=== PATIENT | female | born 1940 | race Caucasian/White ===

== ENCOUNTER 2016-09-16 05:08 | Inpatient (IN) | payer BC, OTHER ==
[2016-08-09 13:56] VITALS: BMI 37.0
--- NOTE | 2016-08-09 14:27 | PAT Medication Instructions ---
Service Date Aug 09, 2016. Current Home Medication List Calcium Carbonate (Tums), 1 TAB PO PRN Cyclosporine (Ophth) (Restasis), 1 DROP OP QAM Ibuprofen Tab (Advil), 400 MG PO PRN Lisinopril (Zestril), 20 MG PO QAM Misc Natural Products (Osteo Bi-Flex Advanced Do), 1 TAB PO QAM Multivitamin (Multivitamin), 1 TAB PO QAM Medication Instructions For Your Scheduled Surgery - Hold the following medications 2 weeks prior to surgery: Misc Natural Products (Osteo Bi-Flex Advanced Do), 1 TAB PO QAM - Hold the following medications the morning of surgery: Calcium Carbonate (Tums), 1 TAB PO PRN Lisinopril (Zestril), 20 MG PO QAM Multivitamin (Multivitamin), 1 TAB PO QAM Ibuprofen Tab (Advil), 400 MG PO PRN (otherwise okay to continue per surgeon) - Take the following medications the morning of surgery: Cyclosporine (Ophth) (Restasis), 1 DROP OP QAM *NOTHING TO EAT OR DRINK AFTER MIDNIGHT* If you have any questions please call us at [phone] (Irina Landaverde PA-C) or [phone] or [phone]
[2016-08-09 15:12] LABS: BASO % 0.3 %; BASO ABS # 0.02 K/uL (0-0.2); COMPLETE YES; EOS % 2.5 %; IG% 0.2 %; LYMPH % 39.8 %; LYMPH ABS # 2.57 K/uL (1.2-3.4); MEAN CELL VOLUME 89.2 fL (80-100); MEAN CORPUSCULAR HEMOGLOBIN 30.3 pg (25-34); NEUT % 48.2 %; PLATELET COUNT 284 K/uL (130-400); RED BLOOD COUNT 4.82 M/uL (4.2-5.4); WHITE BLOOD COUNT 6.46 K/uL (4.8-10.8)
[2016-08-09 15:18] LABS: URINE APPEARANCE CLEAR (CLEAR); URINE BILIRUBIN NEG (NEG); URINE COLOR YELLOW; URINE NITRITE NEG (NEG); URINE SPECIFIC GRAVITY 1.007 (1.000-1.030); UROBILINOGEN NEG (NEG)
[2016-08-09 15:19] LABS: MANUAL MICROSCOPIC REQUIRED? NO; REVIEW REQ? NO
[2016-08-09 15:21] LABS: PARTIAL THROMBOPLASTIN RATIO 1.1; PROTHROMBIN TIME (PATIENT) 10.8 SECONDS (9.0-12.0)
--- NOTE | 2016-08-09 15:52 | DIAGNOSTIC IMAGING REPORT ---
TWO VIEW CHEST CLINICAL HISTORY: Preoperative examination. FINDINGS: PA and lateral chest radiographs are obtained. No prior studies are available for comparison at the time of dictation. The cardiomediastinal silhouette is unremarkable. There is atherosclerotic calcification of the thoracic aorta. Chronic interstitial thickening is unchanged. The lungs and pleural spaces are clear. There is no pneumothorax. The skeletal structures are osteopenic. A right shoulder arthroplasty is in place. Advanced arthritic change is seen in the left shoulder. Spondylosis is noted in the thoracic spine. IMPRESSION: No active disease in the chest. Electronically signed by: Joss Canchola M.D. 08/09/2016 3:51 PM
[2016-08-09 17:16] LABS: BUN/CREATININE RATIO 20.4 (10-20); CREATININE 0.59 mg/dl (0.60-1.20); POTASSIUM 3.8 mmol/L (3.5-5.1)
--- NOTE | 2016-09-15 19:32 | HISTORY & PHYSICAL EXAMINATION ---
DATE OF ADMISSION: 09/16/2016 CHIEF COMPLAINT: Primary osteoarthritis of the left shoulder. HISTORY OF PRESENT ILLNESS: Annemarie is a very pleasant 76-year-old female, who had a right total shoulder arthroplasty done in 2006. She has done well with that. Unfortunately, she is having a lot of pain in her left shoulder. Radiographs and clinical examination were diagnostic for primary osteoarthritis of the left shoulder. After failing conservative treatments, she elected to proceed with a total shoulder arthroplasty. PAST MEDICAL HISTORY: Significant for hypertension. MEDICATION: Include lisinopril 20 mg daily. PAST SURGICAL HISTORY: Significant for a right total shoulder arthroplasty. ALLERGIES: PENICILLIN. FAMILY HISTORY: Noncontributory. SOCIAL HISTORY: The patient is . She lives alone. She rarely drinks. She denies any tobacco or IV drug use. REVIEW OF SYSTEMS: She complains of left shoulder pain. All other pertinent review of systems are negative. PHYSICAL EXAMINATION: GENERAL: She is awake, alert and oriented x3. She is in no apparent distress. She is very pleasant. HEENT: Pupils are equal, round and reactive to light. Extraocular motions are intact. Oral mucosa is pink and moist. HEART: Regular rate per radial pulse. LUNGS: Ekaterina symmetrically bilaterally with no audible breath sounds. ABDOMEN: Soft, nontender and nondistended. MUSCULOSKELETAL: On physical examination of the left shoulder, she has active motion of about 100 degrees of forward flexion and 80 degrees of abduction. She has 4+/5 muscle strength with full can testing, 5/5 muscle strength with external rotation. Negative bear hug and belly press test. Has significant pain over the anterior glenohumeral joint line and crepitus with range of motion. IMAGING DATA: X-rays of the left shoulder do show advanced osteoarthritis with mostly concentric glenoid wear. IMPRESSION: Advanced osteoarthritis of the left shoulder. PLAN: We will proceed with a Biomet comprehensive left total shoulder arthroplasty. Postoperatively, she will be placed in an arm sling and kept overnight for postoperative medical management.
[2016-09-16] VITALS (8 sets, daily range): BP systolic 93–163; BP diastolic 60–105; PULSE 64–86; TEMP 36.3–36.6; O2SAT 94–98; Ht 157.5 cm; Wt 92.0 kg
[~2016-09-16] VITALS: Ht 157.5 cm; Wt 92.0 kg
[~2016-09-16 05:08] MED LIST: CALC500C3 PO; CYCL0.052 OP; IBUP-103 PO; LISI-725 PO; MISCTAB78 PO; MULT-506 PO
[2016-09-16] MEDS ORDERED: LACTATED RINGER'S 1000ML 1,000 ML IV SCH (06:00)
[2016-09-16] MEDS ORDERED: ROPIVACAINE 5MG/ML 30 ML 150 MG, BUPIVACAINE/EPINEPHR 0.5% MPF 30 ML, KETOROLAC TROMETH... INFIL SCH ×7 (06:00)
[2016-09-16] MEDS ORDERED: FAMOTIDINE 20 MG TAB PO SCH (06:00)
[2016-09-16] MEDS ORDERED: GABAPENTIN 300 MG CAP PO SCH (06:00)
[2016-09-16] MEDS ORDERED: VANCOMYCIN INJ 1,400 MG in SODIUM CHLORIDE 0.9% 500ML 500 ML IV SCH ×2 (06:00→18:00)
[2016-09-16] MEDS ORDERED: LACTATED RINGER'S 1000ML IV SCH (06:00)
[2016-09-16] MEDS ORDERED: ACETAMINOPHEN 500 MG TAB PO SCH (06:00)
[2016-09-16] MEDS ORDERED: NEOSTIGMINE METHYLSULFATE 5 MG/5 ML SYR ONE (06:08)
[2016-09-16] MEDS ORDERED: MIDAZOLAM HCL 1 MG/ML 2ML VIAL ONE (06:08)
[2016-09-16] MEDS ORDERED: PHENYLEPHRINE HCL INJ 10 MG/ML VIAL ONE (06:08)
[2016-09-16] MEDS ORDERED: GLYCOPYRROLATE INJ 0.2 MG/ML VIAL ONE (06:08)
[2016-09-16] MEDS ORDERED: EpHEDrine SULFATE INJ 50 MG/ML AMP ONE (06:08)
[2016-09-16] MEDS ORDERED: ONDANSETRON INJ 2 MG/ML 2 ML VIAL ONE (06:08)
[2016-09-16] MEDS ORDERED: DEXAMETHASONE SOD INJ 4 MG/ML VIAL ONE (06:08)
[2016-09-16] MEDS ORDERED: LIDOCAINE HCL 2% 2 ML VIAL (20MG/ML) ONE (06:08)
[2016-09-16] MEDS ORDERED: PROPOFOL IV EMULSION 10 MG/ML 20 ML VIAL IV ONE ×3 (06:08→07:46)
[2016-09-16] MEDS ORDERED: SUCCINYLCHOLINE CHLORIDE 20 MG/ML 10 ML VIAL IV ONE (06:08)
[2016-09-16] MEDS ORDERED: FENTANYL CITRATE INJ 50 MCG/1 ML 2 ML VIAL ONE ×2 (06:09→07:21)
--- NOTE | 2016-09-16 06:24 | History & Physical Bridge Note ---
H&P Re-Evaluation Bridge Note: I have examined the patient, reviewed the History & Physical and in the interval since the performance of the History & Physical I have noted the following changes of clinical significance: No changes noted
[2016-09-16] MEDS ORDERED: BUPIVACAINE/EPINEPHRINE 0.25% 1:200,000 30 ML VIAL ONE (06:27)
[2016-09-16] MEDS ORDERED: ROPIVACAINE 0.5% 5 MG/ML 30 ML VIAL ONE (06:27)
[2016-09-16] MEDS: TRANEXAMIC ACID INJ 1,000 MG in SODIUM CHLORIDE 0.9% 100ML 100 ML IV SCH ×2 (06:30→06:35)
[2016-09-16] MEDS ORDERED: ORTHO JOINT ANESTHETIC ONE (06:35)
[2016-09-16] MEDS ORDERED: HYDROmorphone INJ 1 MG/ML SYR IV PRN ×2 (07:30→09:30)
[2016-09-16] MEDS ORDERED: ONDANSETRON INJ 2 MG/ML 2 ML VIAL IV PRN ×3 (07:30→09:30)
[2016-09-16] MEDS ORDERED: EpHEDrine SULFATE INJ 50 MG/ML AMP IV PRN ×2 (07:30→09:30)
[2016-09-16] MEDS ORDERED: ATROPINE SULFATE 0.1 MG/ML 5ML SYR IV PRN ×2 (07:30→09:30)
[2016-09-16] MEDS ORDERED: FENTANYL CITRATE INJ 50 MCG/1 ML 2 ML VIAL IV PRN ×2 (07:30→09:30)
[2016-09-16] MEDS ORDERED: BACITRACIN 50000 UNIT VIAL IR ONE (08:46)
--- NOTE | 2016-09-16 08:58 | [facility] Post Operative Brief Note ---
Immediate Operative Summary Operative Date Sep 16, 2016. Pre-Operative Diagnosis Advanced osteoarthritis of Left Shoulder Post-Operative Diagnosis Same as preoperative Procedure(s) Performed Left Total Shoulder Arthroplasty, Cemented Surgeon Dr. Coleman New Risk Adjustment Specialist Surgeon(s) Elvin Arzate PA-C Estimated Blood Loss 300ml Findings as above Specimens A.) Left Humeral Head Complication(s) None Disposition Recovery Room / PACU
[2016-09-16] MEDS ORDERED: MAGNESIUM HYDROXIDE SUSP 30 ML UDC PO PRN (09:00)
[2016-09-16] MEDS ORDERED: BISACODYL 10 MG SUPP PR PRN (09:00)
[2016-09-16] MEDS ORDERED: SOD PHOSPHATE/SOD BIPHOSPHATE ENEMA 132 ML BTL PR PRN (09:00)
[2016-09-16] MEDS ORDERED: METOCLOPRAMIDE HCL INJ 5 MG/ML 2 ML VIAL IV PRN (09:00)
[2016-09-16] MEDS: LISINOPRIL 20 MG TAB PO SCH (09:00)
[2016-09-16] MEDS ORDERED: OXYCODONE HCL IR 5 MG TAB (IMMEDIATE RELEASE) PO PRN (09:00)
[2016-09-16] MEDS ORDERED: NALOXONE HCL 0.4 MG/1 ML VIAL/CARP IV PRN (09:00)
[2016-09-16] MEDS ORDERED: MoRPHine SULFATE 2 MG/ML CARP IV PRN (09:00)
--- NOTE | 2016-09-16 09:41 | OPERATIVE REPORT ---
DATE OF OPERATION: 09/16/2016 PREOPERATIVE DIAGNOSIS: Primary osteoarthritis of the left shoulder. POSTOPERATIVE DIAGNOSIS: Same. PROCEDURE: Left total shoulder arthroplasty. SURGEON: Dr. Coleman New. LABOR RELATIONS DIRECTOR: Elvin Arzate PA-C, whose assistance was necessary for positioning of the arm and helping with retraction. ANESTHESIA: General with left interscalene nerve block. COMPLICATIONS: None. CONDITION: Stable to PACU. IMPLANTS USED: I used a Biomet comprehensive left total shoulder arthroplasty system with a size 8 mini pressfit stem, a small cemented glenoid with a Regenerex peg and a 42 x 18 x 46 mm eccentric head. Cement was placed on the back of the glenoid as well as in the superior and anterior peg holes. No cement was placed in the posterior peg hole or around the Regenerex peg. INDICATIONS: Annemarie is a pleasant 76-year-old female who presented to my office with chronic left shoulder pain. She had a right total shoulder arthroplasty done in 2006 and has done well with that. Unfortunately, she was having similar pain in the left shoulder. X-rays and clinical examination were diagnostic for primary osteoarthritis of the shoulder. After failing conservative treatment, she elected to undergo a total shoulder arthroplasty. OPERATION AND FINDINGS: On 09/16/2016 she arrived at [facility] for the above procedure. She was seen in the preoperative holding area and the operative extremity was identified and signed. She was given preoperative antibiotics and a left interscalene nerve block. She was taken back to the operating room, laid on the table in supine position and put under general anesthesia. She was then put into the beachchair position. The left shoulder was prepped and draped in sterile fashion. Time-out was done and the patient and operative extremity was properly identified. A deltopectoral approach was utilized. Dissection was taken down through the fascia and the anterior shoulder was exposed. The long head of the biceps tendon was tenotomized. The rotator interval was opened up and the subscapularis was tenotomized off the lesser tuberosity with a centimeter of cuff tissue remaining. The supraspinatus and infraspinatus were palpated and intact. The humeral head was then dislocated out of the joint. A reamer was sent down the center of the humeral canal. Sequential reaming up to a size 8 reamer was done. Off the final reamer, a proximal humeral resection guide was placed and the proximal humerus was resected at 30 degrees of retroversion and 135 degrees of inclination. The head was removed and osteophytes around the inferior neck were then all removed. The glenoid was then exposed. Time was spent doing a complete circumferential capsular labral release. The [employer] signature guide was then snapped onto the anterior aspect of the glenoid and a guide pin was set in the total shoulder arthroplasty hole. The glenoid measured to be a size small and a small reamer was used. The Regenerex peg hole was then drilled, followed by the 3 peripheral peg holes. The final glenoid was then cemented into place. Once cement had hardened, the proximal humerus was exposed. Sequential broaching up to a size 8 broach was done. A 42 x 18 mm head was trialed, the shoulder was reduced, brought through a full range of motion and felt to be stable. The trials were then removed. The final size 8 mini implant was then impacted into place. A 42 x 18 mm eccentric head was then impacted into place. The shoulder was reduced. The subscapularis was then tenodesed back to the lesser tuberosity with transosseous FiberWire sutures and [id number] sutures. Two sutures were placed in the lateral rotator interval. I was able to externally rotate her about 30 degrees after the repair without much tension. The wound was then irrigated with 3 liters of normal saline solution with bacitracin. The surrounding soft tissues were then injected with an orthopedic pain control cocktail. A drain was placed. Skin was closed with 2-0 Vicryl and 3-0 V-Loc suture and a Prineo dressing. She was then placed in a soft dressing and regular arm sling. She was then extubated, transferred to a [facility] and taken to the postanesthesia care unit in stable condition. She tolerated the procedure well. I attest to the content of the Intraoperative Record and any orders documented therein. Any exceptio ns are noted below.
--- NOTE | 2016-09-16 10:28 | DIAGNOSTIC IMAGING REPORT ---
LEFT SHOULDER MIN 2 VIEWS ROUTINE CLINICAL HISTORY: Status post left shoulder surgery. COMPARISON: CT of the left shoulder August 09, 2016. FINDINGS: Alignment of the left shoulder arthroplasty is anatomic. There is no fracture or unexpected radiopaque foreign body. Drain is in place. IMPRESSION: Expected findings following left shoulder arthroplasty. Electronically signed by: Erich Ley M.D. 09/16/2016 10:26 AM Dictated Date/Time: 09/16/2016 10:25 AM
--- NOTE | 2016-09-16 11:47 | Anesthesiology Progress Note ---
Anesthesia Post Op Note Date & Time Sep 16, 2016 at 11:46 Vital Signs Pain Intensity: 0.0 Vital Signs Past 12 Hours Date Time Temp Pulse Resp B/P Pulse Ox O2 Delivery O2 Flow Rate FiO2 09/16/16 11:31 76 16 114/74 98 2.0 09/16/16 11:04 Nasal Cannula 2.0 09/16/16 11:00 36.6 75 16 125/82 96 Nasal Cannula 2.0 09/16/16 11:00 76 16 113/74 94 2.0 09/16/16 10:59 Partial Rebreather 2.0 09/16/16 09:59 66 14 113/71 98 09/16/16 09:59 70 14 09/16/16 09:54 78 16 09/16/16 09:54 78 16 98 09/16/16 09:53 136/66 09/16/16 09:49 69 15 121/75 98 09/16/16 09:49 73 15 09/16/16 09:44 75 16 09/16/16 09:44 75 16 132/62 98 09/16/16 09:43 36.3 09/16/16 09:38 133/77 09/16/16 09:37 79 16 98 09/16/16 09:37 78 16 09/16/16 09:34 101/85 09/16/16 09:32 82 19 09/16/16 09:32 81 19 99 09/16/16 09:30 Nasal Cannula 3 09/16/16 09:28 142/83 09/16/16 09:27 79 17 09/16/16 09:27 79 17 99 09/16/16 09:24 113/78 09/16/16 09:22 81 17 99 09/16/16 09:22 81 17 09/16/16 09:19 127/79 09/16/16 09:17 90 21 99 09/16/16 09:17 90 21 09/16/16 09:14 148/77 09/16/16 09:12 36.1 90 16 148/77 99 Mask 10 09/16/16 05:54 36.4 86 18 163/105 95 Room Air Notes Mental Status: alert / awake / arousable, participated in evaluation Pt Amnestic to Procedure: Yes Nausea / Vomiting: adequately controlled Pain: adequately controlled Airway Patency, RR, SpO2: stable & adequate BP & HR: stable & adequate Hydration State: stable & adequate Anesthetic Complications: no major complications apparent
[2016-09-16] MEDS: PANTOprazole SOD 40 MG TAB PO SCH (12:00)
[2016-09-16] MEDS: MULTIVITAMIN TAB PO SCH (12:00)
[2016-09-16] MEDS: KETOROLAC TROMETHAMINE 15 MG/ML VIAL IV. SCH ×2 (12:19→18:48)
[2016-09-16] MEDS: D5W AND 1/2NSS + 20MEQ KCL 1,000 ML IV SCH ×2 (12:20→21:04)
[2016-09-16] MEDS: ACETAMINOPHEN IV 1,000 MG in EMPTY BAG 0 ML IV SCH ×2 (14:11→21:04)
[2016-09-16] MEDS ORDERED: SENNA 8.6 MG TAB PO SCH (21:00)
[2016-09-16] MEDS: DOCUSATE SODIUM 100 MG CAP PO SCH (21:03)
[2016-09-17 03:10] VITALS: BP 131/76; PULSE 81; TEMP 36.7; O2SAT 96
[2016-09-17] MEDS: ACETAMINOPHEN IV 1,000 MG in EMPTY BAG 0 ML IV SCH (05:53)
[2016-09-17] MEDS: KETOROLAC TROMETHAMINE 15 MG/ML VIAL IV. SCH ×3 (05:53→12:00)
[2016-09-17] MEDS: D5W AND 1/2NSS + 20MEQ KCL 1,000 ML IV SCH (07:30)
[2016-09-17 07:37] LABS: HEMATOCRIT 33.8 % (37-47); MEAN CELL VOLUME 90.4 fL (80-100); MEAN CORPUSCULAR HEMOGLOBIN 29.9 pg (25-34); MEAN CORPUSCULAR HGB CONC 33.1 g/dl (32-36); MEAN PLATELET VOLUME 9.9 fL (7.4-10.4); PLATELET COUNT 228 K/uL (130-400); RED BLOOD COUNT 3.74 M/uL (4.2-5.4); WHITE BLOOD COUNT 10.58 K/uL (4.8-10.8)
[2016-09-17 08:03] LABS: BUN/CREATININE RATIO 19.7 (10-20); CALCIUM 8.2 mg/dl (8.5-10.1); CREATININE 0.59 mg/dl (0.60-1.20); POTASSIUM 3.8 mmol/L (3.5-5.1)
[2016-09-17 08:05] VITALS: BP 120/80; PULSE 84; TEMP 36.9; O2SAT 95
[2016-09-17 08:13] VITALS: O2SAT 95
[2016-09-17] MEDS ORDERED: RXC5 PO (09:20)
--- NOTE | 2016-09-17 09:21 | Discharge Instructions ---
Discharge Instructions Admission Reason for Admission: Left Shoulder Joint Pain Discharge Discharge Diagnosis / Problem: Left Total Shoulder Discharge Goals Goal(s): Decrease discomfort, Improve function Activity Recommendations Activity Limitations: as noted below sling for 3 weeks . Instructions / Follow-Up Instructions / Follow-Up May remove dressing (except Prineo) and shower on Monday, follow-up in 2 weeks Current Hospital Diet Patient's current hospital diet: Regular Diet Discharge Diet Recommended Diet: Regular Diet Procedures Procedures Performed: Left Total Shoulder Arthroplasty, Cemented Pending Studies Studies pending at discharge: no Medical Emergencies . Who to Call and When: Medical Emergencies: If at any time you feel your situation is an emergency, please call 911 immediately. . Non-Emergent Contact Non-Emergency issues call your: Surgeon Call Non-Emergent contact if: wound has increased drainage, wound has increased redness . "Provider Documentation" section prepared by Coleman New. VTE Core Measure Inpt VTE Proph given/why not?: Treatment not indicated
[2016-09-17] MEDS: PANTOprazole SOD 40 MG TAB PO SCH (10:10)
[2016-09-17] MEDS: MULTIVITAMIN TAB PO SCH (10:10)
[2016-09-17] MEDS: DOCUSATE SODIUM 100 MG CAP PO SCH (10:10)
[2016-09-17] MEDS: LISINOPRIL 20 MG TAB PO SCH (10:11)
--- NOTE | 2016-09-17 10:15 | PROGRESS NOTE ---
DATE: 09/17/2016 DATE: 09/17/2016. CHIEF COMPLAINT: Status post left total shoulder arthroplasty postop day #1. PROGRESS: Annemarie was seen and examined at bedside today. Overall, she is doing very well. She has very little pain in her shoulder. She had no acute events overnight and has no complaints. PHYSICAL EXAMINATION: LEFT SHOULDER: The dressing is clean and dry and the drain is to suction. Her radial, median and ulnar nerves were checked and intact at her wrist. Her axillary nerve was not definitively checked yet. She is wearing her sling as instructed. LABORATORIES: She has an H\T\H today of 11.2 and 33.8. Her creatinine is stable at 0.59. Her vital signs are all stable on room air. She is voiding on her own. X-rays postoperatively of the left shoulder show the prosthesis to be in anatomic alignment without any evidence of fracture, dislocation or loosening. IMPRESSION: Status post left total shoulder arthroplasty postop day #1. PLAN: At this point, she is doing well. Her pain is well controlled. She will be seen by physical therapy today for hand, wrist, elbow and pendulum exercises. Will discharge her to home later this morning.
[2016-09-17 12:36] VITALS: BP 135/88; PULSE 88; TEMP 36.6; O2SAT 98
[2016-09-17 12:49] VITALS: BP 109/67; PULSE 76; O2SAT 96
[2016-09-17 14:01] VITALS: BP 109/67; PULSE 76; TEMP 36.6; O2SAT 96
--- NOTE | 2016-09-17 14:06 | DISCHARGE SUMMARY ---
DISCHARGE DIAGNOSIS: Primary osteoarthritis of the left shoulder. PROCEDURE: Left total shoulder arthroplasty by Dr. Coleman New on 09/16/2016. DISCHARGE INSTRUCTIONS: 1. Oxycodone 5 mg every 4 hours as needed for pain. 2. Restasis 1 drop in the morning. 3. Advil 400 mg as needed for pain. 4. Zestril 20 mg daily. 5. Daily multivitamin. 6. Left arm sling for 3 weeks. 7. Follow up with Dr. New in 2 weeks. 8. Call the office of Dr. New with any questions or concerns. HOSPITAL COURSE: Annemarie is a very pleasant 76-year-old female who presented to my office with chronic left shoulder pain. X-rays and clinical examination were diagnostic for primary osteoarthritis of the left shoulder. After failing conservative treatment, she elected to undergo a left total shoulder arthroplasty. On 09/16/2016 she arrived at [facility] and underwent a left shoulder replacement without complications. She had a general anesthetic and a left interscalene nerve block. Postoperatively, she was placed in an arm sling and discharged to general orthopedic floor. Her hospital course was uneventful. On postop day #1, her H\T\H was stable at 11.2 and 33.8. She was able to participate well with physical therapy. Her pain was well controlled and she was subsequently discharged to home with the above instructions.
== END 2016-09-17 15:15 | disposition home or self-care (01) | DRG 483 ==
LOC: ENRESERVDT → ENRESERVTM → C.ACU 05:08 → C.3E 06:10
PROVIDERS: ADMIT Orthopaedic Surgery; ATTEND Orthopaedic Surgery
PROC: 0RR Upper Joints, Replacement (ICD-10-PCS; principal; 2016-09-16 07:00)
DX: M19.012 Primary osteoarthritis, left shoulder (principal); I10 Essential (primary) hypertension; Z79.899 Other long term (current) drug therapy

== ENCOUNTER → 2017-03-15 | Outpatient (CLI) | payer BC ==
[~2017-03-15] MED LIST changes: +RXC5 PO
== END | disposition home or self-care (01) ==
LOC: C.PATHSPEC 17:39
PROVIDERS: ATTEND Plastic Surgery
DX: L98.9 Disorder of the skin and subcutaneous tissue, unspecified (principal)

== ENCOUNTER → 2017-04-05 | Outpatient (CLI) | payer BC | END | disposition home or self-care (01) | LOC: C.PATHSPEC 17:09 | PROVIDERS: ATTEND Plastic Surgery | DX: C44.529 Squamous cell carcinoma of skin of other part of trunk (principal) ==

== ENCOUNTER → 2017-06-20 | Outpatient (CLI) | payer BC ==
--- NOTE | 2017-06-20 15:20 | MAMMOGRAPHY REPORT ---
BILATERAL DIGITAL SCREENING MAMMOGRAM WITH CAD: 06/20/2017 CLINICAL HISTORY: Routine screening. Patient has no complaints. TECHNIQUE: Bilateral CC and MLO views were obtained. Current study was also evaluated with a Comput er Aided Detection (CAD) system. COMPARISON: Comparison is made to exams dated: 07/31/2015 mammogram, 07/18/2014 mammogram, 3 mammogram, 07/12/2012 mammogram, 07/07/2011 mammogram, and 06/24/2010 mammogram - [facility]. BREAST COMPOSITION: The tissue of both breasts is almost entirely fatty. FINDINGS: There are benign rodlike secretory calcifications and rim calcifications in both breasts. A stable intramammary lymph node in the left upper outer quadrant. No new suspicious mass, senior enterprise architect ural distortion or cluster of microcalcifications is seen. IMPRESSION: ACR BI-RADS CATEGORY 2: BENIGN There is no mammographic evidence of malignancy. A 1 year screening mammogram is recommended. The pa tient will receive written notification of the results. Approximately 10% of breast cancers are not detected with mammography. A negative mammographic report should not delay biopsy if a clinically suggestive mass is present. Monica Corea M.D. ay/:06/20/2017 12:21:28 Missing Persons Investigator: Justine ROMO(Misty)(Ignacio), [facility] letter sent: Normal 1/2 BI-RADS Code: ACR BI-RADS Category 2: Benign
== END | disposition home or self-care (01) ==
LOC: C.MAMM 11:12
PROVIDERS: ATTEND Family Medicine
DX: Z12.31 Encounter for screening mammogram for malignant neoplasm of breast (principal)

== ENCOUNTER → 2017-11-08 | Outpatient (CLI) | payer BC ==
--- NOTE | 2017-11-08 13:20 | DIAGNOSTIC IMAGING REPORT ---
PELVIC COMPLETE NON OB CLINICAL HISTORY: 77 years-old Female presenting with POST MENOPAUSAL BLEEDING, , abnormal bleeding for several months, no hormone replacement therapy, no pelvic pain. TECHNIQUE: Real-time grayscale and color and spectral Doppler ultrasound imaging of the pelvis was performed first using a transabdominal probe and subsequently transvaginal for better characterization. COMPARISON: None. FINDINGS: Uterus: Normal. Anteverted. The uterus measures 7.4 x 3.7 x 2.9 cm. Endometrial stripe measures 14 mm in thickness. Endometrium abnormally thickened and heterogeneously hypoechoic. Fluid noted in the endometrial cavity. The abnormal thickening appears to emanate from the posterior wall and displaces the endometrial cavity anteriorly. Cervix contains a few nabothian cysts. Right adnexa: Right ovary not visualized. Left adnexa: Left ovary not visualized. Other: No free fluid. IMPRESSION: Abnormal endometrial thickening, which is most concerning for endometrial polyp or endometrial neoplasm. Alternatively, this could represent endometrial hyperplasia. Gynecologic consultation warranted for endometrial biopsy. The report will be called/faxed according to standard departmental protocol. Electronically signed by: Gray Hope M.D. 11/08/2017 1:18 PM Dictated Date/Time: 11/08/2017 1:15 PM
== END | disposition home or self-care (01) ==
LOC: C.ULTRBC 12:34
PROVIDERS: ATTEND Family Medicine
DX: N85.8 Other specified noninflammatory disorders of uterus (principal); N95.0 Postmenopausal bleeding

== ENCOUNTER 2017-12-22 10:24 | Day surgery (SDC) | payer BC ==
[2017-12-19 09:08] VITALS: BMI 33.0
--- NOTE | 2017-12-19 09:31 | PAT Medication Instructions ---
Service Date Dec 19, 2017. Current Home Medication List Calcium/Vitamin D (Os-Koko 500 Plus D), 1 TAB PO QAM Cholecalciferol (Vitamin D3), 1 TAB PO QAM Lisinopril (Zestril), 20 MG PO QAM Misc Natural Products (Osteo Bi-Flex Advanced Do), 1 TAB PO QAM Multivitamin (Multivitamin), 1 TAB PO QAM Medication Instructions For Your Scheduled Surgery - Hold the following medications starting today: Misc Natural Products (Osteo Bi-Flex Advanced Do), 1 TAB PO QAM - Hold the following medications the morning of surgery: Calcium/Vitamin D (Os-Koko 500 Plus D), 1 TAB PO QAM Cholecalciferol (Vitamin D3), 1 TAB PO QAM Lisinopril (Zestril), 20 MG PO QAM Multivitamin (Multivitamin), 1 TAB PO QAM If you have any questions please call us at [phone] or [phone] or [phone]
[2017-12-19 10:45] LABS: BASO % 0.7 %; BASO ABS # 0.04 K/uL (0-0.2); EOS % 2.6 %; EOS ABS # 0.15 K/uL (0-0.5); HEMATOCRIT 43.7 % (37-47); IG# 0.03 K/uL (0.00-0.02); LYMPH % 30.2 %; LYMPH ABS # 1.77 K/uL (1.2-3.4); MEAN CELL VOLUME 90.1 fL (80-100); MEAN CORPUSCULAR HEMOGLOBIN 30.9 pg (25-34); MEAN CORPUSCULAR HGB CONC 34.3 g/dl (32-36); MEAN PLATELET VOLUME 10.2 fL (7.4-10.4); MONO % 12.3 %; MONO ABS # 0.72 K/uL (0.11-0.59); NEUT % 53.7 %; NEUT ABS # 3.16 K/uL (1.4-6.5); PLATELET COUNT 291 K/uL (130-400); RED CELL DISTRIBUTION WIDTH CV 14.2 % (11.5-14.5); RED CELL DISTRIBUTION WIDTH SD 46.8 fL (36.4-46.3); WHITE BLOOD COUNT 5.87 K/uL (4.8-10.8)
[2017-12-19 11:15] LABS: CALCIUM 9.1 mg/dl (8.5-10.1); CREATININE 0.68 mg/dl (0.60-1.20); POTASSIUM 4.3 mmol/L (3.5-5.1)
[~2017-12-22] VITALS: Ht 154.9 cm; Wt 79.5 kg
[~2017-12-22 10:24] MED LIST changes: +ATROPINE SULFATE 0.1 MG/ML 5ML SYR IV PRN; -CALC500C3 PO; +CALC500C70 PO; +CHOL1000 PO; -CYCL0.052 OP; +EpHEDrine SULFATE INJ 50 MG/ML AMP IV PRN; +FENTANYL CITRATE INJ 50 MCG/1 ML 2 ML VIAL IV PRN; -IBUP-103 PO; +LACTATED RINGER'S 1000ML 1,000 ML IV SCH; +ONDANSETRON INJ 2 MG/ML 2 ML VIAL IV PRN; -RXC5 PO
[2017-12-22 10:50] VITALS: BP 138/64; PULSE 80; TEMP 36.6; O2SAT 97; Ht 154.9 cm; Wt 79.5 kg
[2017-12-22] MEDS ORDERED: MIDAZOLAM HCL 1 MG/ML 2ML VIAL ONE (11:54)
[2017-12-22] MEDS ORDERED: LIDOCAINE HCL 2% 2 ML VIAL (20MG/ML) ONE ×3 (11:54→13:52)
[2017-12-22] MEDS ORDERED: PROPOFOL IV EMULSION 10 MG/ML 20 ML VIAL IV ONE ×2 (11:54→13:52)
[2017-12-22] MEDS ORDERED: DEXAMETHASONE SOD INJ 4 MG/ML VIAL ONE (11:56)
[2017-12-22] MEDS ORDERED: ONDANSETRON INJ 2 MG/ML 2 ML VIAL ONE (11:56)
[2017-12-22] MEDS ORDERED: DexMEDEtomidine HCL IV 100 MCG/ML VIAL IV ONE (12:43)
[2017-12-22] MEDS ORDERED: ACETAMINOPHEN 1000 MG/100 ML IV IV ONE (12:43)
[2017-12-22] MEDS ORDERED: KETAMINE HCL INJ 50 MG/ML 10 ML VIAL ONE (12:50)
[2017-12-22] MEDS ORDERED: FENTANYL CITRATE INJ 50 MCG/1 ML 2 ML VIAL ONE (13:17)
[2017-12-22] MEDS ORDERED: KETOROLAC TROMETHAMINE 30 MG/ML VIAL ONE (13:54)
[2017-12-22] MEDS ORDERED: BACITRACIN OINT 15 GM TUBE ONE (13:56)
--- NOTE | 2017-12-22 14:02 | [facility] Post Operative Brief Note ---
Immediate Operative Summary Operative Date Dec 22, 2017. Pre-Operative Diagnosis Post menopausal bleeding, thickened endometrium Post-Operative Diagnosis same as pre-op Procedure(s) Performed D&C hysteroscopy, Removal of endometrial mass with Myosure Surgeon Dr. Funes Ux Specialist Surgeon(s) none Estimated Blood Loss 5 Findings Consistent with Post-Op Diagnosis Fluids (cc crystalloids) 1000 Specimens Endometrial mass and endometrial curettings Drains None Anesthesia Type MAC Complication(s) none Disposition Disposition: Recovery Room / PACU
[2017-12-22] MEDS ORDERED: MTR600X PO (14:10)
--- NOTE | 2017-12-22 14:12 | Discharge Instructions ---
Discharge Instructions Date of Service Dec 22, 2017. Admission Reason for Admission: Post-Menopausal Bleeding, Thickened Endometrium, S Discharge Discharge Diagnosis / Problem: Post-op Discharge Goals Goal(s): Routine recovery after surgery Activity Recommendations Activity Limitations: as noted below ACTIVITY RECOMMENDATIONS: * Avoid tampons, douching, hot tubs, pools, and intercourse until bleeding has stopped. * May shower as usual. * No strenuous activity for 24-48 hours. After 24-48 hours, you can do anything you feel like doing (driving and sports are okay). RETURN TO SCHOOL/WORK: * You may return to school or work after 24 hours unless specified by your physician. DIET: * Resume previous diet. MEDICATIONS: Resume previous medications unless instructed otherwise by your surgeon. Ibuprofen 200mg 2-3 tablets every 4-6 hours as needed --OR-- Aleve 2 tablets every 8-12 hours as needed for post-operative discomfort Medications are over the counter. Tylenol may be used if above medications are contraindicated or not preferred. Medication should be taken with food or milk. do not take on an empty stomach. SPECIAL CARE INSTRUCTIONS: * Check temperature twice daily for one week. Report any elevation over 101 degrees. * Call office if you experience increased pelvic pain or discomfort not relieved by pain medicine, if you have foul smelling vaginal discharge, if you have bleeding that is heavier than a normal menstrual flow. If you are changing a maxi pad every 1- 2 hours, this is too heavy. vaginal spotting is normal for 1-2 weeks. FOLLOW UP VISIT: Call your doctor's office for a post-operative visit. . Current Hospital Diet Patient's current hospital diet: Discharge Diet Recommended Diet: Regular Diet Procedures Procedures Performed: Dilation and currettage, hysteroscopy, Removal of Endometrial Mass with Myosure Pending Studies Studies pending at discharge: no Medical Emergencies . Who to Call and When: Medical Emergencies: If at any time you feel your situation is an emergency, please call 911 immediately. . Non-Emergent Contact Non-Emergency issues call your: Specialist . . "Provider Documentation" section prepared by Rachelle Garcia. .
[2017-12-22] MEDS ORDERED: OXYCODONE/ACETAMINOPHEN 5-325 TAB PO PRN ×2 (14:15)
[2017-12-22] MEDS ORDERED: KETOROLAC TROMETHAMINE 15 MG/ML VIAL IV. PRN (14:15)
[2017-12-22] MEDS ORDERED: PROMETHAZINE HCL INJ 25 MG in SODIUM CHLORIDE 0.9% 50ML 50 ML IV PRN (14:15)
[2017-12-22] MEDS ORDERED: IBUPROFEN 600 MG TAB PO PRN (14:15)
--- NOTE | 2017-12-22 14:21 | [facility] Operative Report ---
Operative Report Operative Date Dec 22, 2017. Pre-Operative Diagnosis Post menopausal bleeding, thickened endometrium Post-Operative Diagnosis same as pre-op Procedure(s) Performed Dilation and currettage, hysteroscopy, Removal of Endometrial Mass with Myosure Surgeon Dr. Funes Litigation Legal Secretary Surgeon(s) none Estimated Blood Loss 5 Findings Stenotic external cervical os 8 cm anteverted uterus Endometrial mass and blood clot in the uterine cavity Bilateral tubal ostia visualized after removal of endometrial mass Fluids 1000 Specimens A: Endometrial mass B: Endometrial curettings Drains None Anesthesia Type MAC Complication(s) none Disposition Recovery Room / PACU Indications This is a 77 yo with post-menopausal bleeding and thickened endometrium on pelvic ultrasound. Patient desiring removal via D&C hysteroscopy and myosure. Informed consent previously obtained. Description of Procedure This is a 77-year-old with post-menopausal bleeding and thickened endometrium seen on ultrasound. Risks, benefits and alternatives discussed with the patient at length. Informed consent was obtained. The patient was taken to the operating room. MAC was obtained without difficulty. She was then prepped and draped in the lithotomy position in yellow-fin stirrups. Examination under anesthesia revealed a small anteverted uterus. No adnexal masses were palpable. A weighted speculum was placed inside the vagina. The anterior lip of the cervix grasped with single-tooth tenaculum. The external cervical os was stenotic. Lacrimal duct was use to dilate and open the external cervical os. The cervix was then gently dilated to ensure reduction with diagnostic hysteroscope. The hysteroscope was introduced into the uterine fundus. Endometrial mass and blood was noted on entry into the uterine cavity. Both ostia were not originally visualized. There was some thickening of endometrium with some scant polypoid tissue on the posterior wall. The hysteroscope was removed. The cervix was then serially dilated to accomodate the Myosure scope and device. The endometrial mass was removed with Myosure. After removal of the endometrial mass, bilateral tubal ostia was well visualized. The Myosure device was then removed. Sharp curettage followed. Tissue was obtained. All tissue specimens were sent for pathological evaluation. All instruments removed from the vagina. Hemostasis was achieved. The patient was awakened and taken to the recovery room in stable condition. I attest to the content of the Intraoperative Record and any orders documented therein. Any exceptions are noted below.
[2017-12-22] MEDS ORDERED: SODIUM CHLORIDE 0.9% 1000ML 1,000 ML IV SCH (14:45)
--- NOTE | 2017-12-22 14:51 | Anesthesiology Progress Note ---
Anesthesia Post Op Note Date & Time Dec 22, 2017 at 14:51 Vital Signs Pain Intensity: 0 Vital Signs Past 12 Hours Date Time Temp Pulse Resp B/P (MAP) Pulse Ox O2 Delivery O2 Flow Rate FiO2 12/22/17 14:40 36.5 60 16 112/70 93 Room Air 12/22/17 14:30 60 12 106/71 97 Oxymask 10 12/22/17 14:20 61 12 104/63 97 Oxymask 10 12/22/17 14:10 36.4 69 12 100/68 96 Oxymask 10 12/22/17 10:50 36.6 80 20 138/64 (88) 97 Room Air Notes Mental Status: alert / awake / arousable, participated in evaluation Pt Amnestic to Procedure: Yes Nausea / Vomiting: adequately controlled Pain: adequately controlled Airway Patency, RR, SpO2: stable & adequate BP & HR: stable & adequate Hydration State: stable & adequate Anesthetic Complications: no major complications apparent
[2017-12-22 14:58] VITALS: BP 109/58; PULSE 63; TEMP 36.3; O2SAT 93
[2017-12-22] MEDS: ONDANSETRON INJ 2 MG/ML 2 ML VIAL IV PRN ×2 (15:20→15:34)
[2017-12-22 15:30] VITALS: BP 112/54; PULSE 68; O2SAT 95
[2017-12-22 16:00] VITALS: BP 123/54; PULSE 61; O2SAT 95
[2017-12-22 17:00] VITALS: BP 113/65; PULSE 58; TEMP 36.1; O2SAT 95
[2017-12-22 17:35] VITALS: BP 127/79; PULSE 68; O2SAT 98
== END 2017-12-22 18:15 | disposition home or self-care (01) ==
LOC: C.ACU 10:24
PROVIDERS: ATTEND Obstetrics & Gynecology Obstetrics
DX: C54.1 Malignant neoplasm of endometrium (principal); I10 Essential (primary) hypertension; K21.9 Gastro-esophageal reflux disease without esophagitis; Z88.0 Allergy status to penicillin; Z88.5 Allergy status to narcotic agent; Z96.611 Presence of right artificial shoulder joint; Z80.3 Family history of malignant neoplasm of breast

== ENCOUNTER 2021-02-26 11:07 | Inpatient (IN) ==
[2021-02-26 12:17] LABS: Hematocrit (blood only) 41.7 % (37-47); Hemoglobin 14.2 g/dL (12.0-16.0); Immature Granulocytes # (auto) 0.04 K/uL (0.00-0.02); Immature Granulocytes % (auto) 0.3 %; Lymphocytes # (auto) 0.94 K/uL (1.2-3.4); Lymphocytes % (auto) 7.5 %; Mean Corpuscular Hemoglobin 30.1 pg (25-34); Mean Corpuscular Hgb Conc 34.1 g/dL (32-36); Mean Corpuscular Volume 88.3 fL (80-100); Mean Platelet Volume 10.3 fL (7.4-10.4); Monocytes # (auto) 1.06 K/uL (0.11-0.59); Monocytes % (auto) 8.4 %; Neutrophils # (auto) 10.54 K/uL (1.4-6.5); Neutrophils % (auto) 83.8 %; Platelet Count 276 K/uL (130-400); RDW Coefficient of Variation 13.7 % (11.5-14.5); RDW Standard Deviation 44.8 fL (36.4-46.3); Red Blood Count 4.72 M/uL (4.2-5.4); White Blood Count 12.58 K/uL (4.8-10.8)
[2021-02-26 12:35] LABS: Albumin Level 3.5 gm/dl (3.4-5.0); BUN Creatinine Ratio 44.5 (10-20); Creatinine Clr Calc Pharmacy 89.7 ml/min; Est GFR (African American) 105.3 ml/min; Est GFR (Non-African American) 90.9 ml/min; Potassium 3.7 mmol/L (3.5-5.1)
[2021-02-26 12:38] LABS: Globulin 3.5 gm/dl (2.5-4.0)
[2021-02-26] MEDS ORDERED: ONDANSETRON INJ 2 MG/ML 2 ML VIAL IV STA (12:47)
[2021-02-26] MEDS ORDERED: ACETAMINOPHEN 1,000 MG/100 ML VIAL IV STA (12:47)
[2021-02-26] MEDS ORDERED: HYDROmorphone INJ 0.5 MG/0.5 ML SYR IV PRN (12:47)
[2021-02-26 13:11] LABS: Creatine Kinase 622 U/L (26-192); Creatine Kinase MB 8.1 ng/ml (0.5-3.6); Troponin I < 0.015 ng/ml (0-0.045)
--- NOTE | 2021-02-26 13:40 | CT Scan Report ---
CT head/brain wo con CLINICAL HISTORY: 81 years-old Female with Pt c/o fall, dizziness. Acute head injury status post fal l TECHNIQUE: Multiple axial CT images of the head were obtained without contrast. A dose lowering tech nique was utilized adhering to the principles of ALARA. COMPARISON: Brain MRI 07/11/2019 FINDINGS: No acute intracranial hemorrhage, midline shift, intra-axial mass, hydrocephalus, territorial ischemi a or abnormal extra-axial collection. Age-related involutional changes. White matter hypodensities ervin ggestive of chronic microvascular ischemic disease. 1.6 cm calcified meningioma adjacent to the left cerebral convexity redemonstrated. Cerebral vascular calcifications. Chronic subcentimeter lacunar in farct of the left thalamus. The calvarium is intact. Mastoid air cells are clear. Mild polypoid mucosal thickening of the left m axillary sinus. Unremarkable soft tissues and orbits. IMPRESSION: 1. No acute intracranial abnormality or calvarial fracture. 2. Chronic findings as above. ACT 112: Negative or not required by law. The above report was generated using voice recognition software. It may contain grammatical, syntax o r spelling errors. Electronically signed by: Charles Baron M.D. 02/26/2021 1:39 PM
--- NOTE | 2021-02-26 13:40 | CT Scan Report ---
CT SCAN OF THE CERVICAL SPINE CLINICAL HISTORY: Trauma. Fall. COMPARISON STUDY: No priors. TECHNIQUE: CT scan of the cervical spine is performed from the skull base to the upper thoracic spine . Images are reviewed in the axial, sagittal, and coronal planes. IV contrast was not administered fo r this examination. A dose lowering technique was utilized adhering to the principles of ALARA. The examination is degraded by streak artifact from the patient's shoulders. FINDINGS: Skeletal structures: The skeletal structures are osteopenic. There is no evidence of fracture or subl uxation involving the cervical spine. Vertebral body height is maintained. There is minimal anterolis thesis at C3-C4 and C4-C5. Alignment is otherwise preserved. There is straightening of cervical lordo sis. Anterior osteophytes are seen throughout. The odontoid process and lateral masses are intact. Th e atlantoaxial articulation is preserved noting abdomen and productive degenerative change. The spino us processes appear intact. There is moderate multilevel cervical spondylosis. Uncovertebral and face t arthropathy contribute to neural foraminal stenosis at several levels. Intervertebral discs: There is moderate to advanced disc space narrowing at C5-C6 and C6-C7. Central canal: Posterior disc osteophyte complexes at C5-C6 and C6-C7 likely contribute to acquired c ompromise of the central canal. Soft tissues: The prevertebral and paraspinous soft tissues are within normal limits. There is athero sclerotic calcification of the carotid bulbs. Calvarium: The visualized calvarium at the skull base appears intact. Brain parenchyma: Partially visualized brain parenchyma at the skull base is within normal limits. Sinuses and mastoids: The visualized paranasal sinuses are clear. The mastoid air cells are well pneu matized. Lung apices: Clear as visualized. IMPRESSION: 1. There is no evidence of fracture or subluxation involving the cervical spine. 2. Osteopenia and spondylotic change as above. ACT 112: Negative or not required by law. Electronically signed by: Joss Canchola M.D. 02/26/2021 1:39 PM
--- NOTE | 2021-02-26 13:45 | CT Scan Report ---
CT lumbar spine wo con CT DOSE: CLINICAL HISTORY: Back pain status post trauma TECHNIQUE: Helical images were acquired in transverse plane. Reformatted sagittal and coronal images were reviewed. A dose lowering technique was utilized adhering to the principles of ALARA. CONTRAST: No contrast was administered COMPARISON STUDY: X-ray of the lumbar spine dated 06/20/2019 FINDINGS: L1-2 level: There is no evidence of significant disc bulge or focal herniation. There is no evidence of spinal or foraminal stenosis. L2-3 level: There is a circumferential disc bulge with mild spinal stenosis. There is no significant foraminal narrowing L3-4 level: There is a circumferential disc bulge with moderate spinal stenosis. There is mild bilate ral foraminal narrowing. L4-5 level: There is a circumferential disc bulge with moderate to severe spinal stenosis. There is m ild bilateral foraminal narrowing L5-S1 level: There is no evidence of significant disc bulge or focal herniation. There is no evidence of spinal or foraminal stenosis. There is multilevel facet joint arthropathy. There is an old severe L1 compression fracture with 8 mm of retropulsion with secondary spinal canal narrowing IMPRESSION: 1. No acute fractures or traumatic subluxations 2. Old severe L1 compression fracture with 8 mm of retropulsion with secondary spinal canal narrowing 3. Multilevel spondylytic changes with multilevel spinal stenosis ACT 112: Negative or not required by law. Electronically signed by: Alex Martínez M.D. 02/26/2021 1:44 PM
--- NOTE | 2021-02-26 13:46 | CT Scan Report ---
CT chest diagnostic wo con CLINICAL HISTORY: Pt c/o left sided rib pain COMPARISON STUDY: No previous studies for comparison. CT DOSE: 3768.54 mGy.cm TECHNIQUE: CT of the thorax was performed from the thoracic inlet to the lung bases. Images are revi ewed in the axial, sagittal, and coronal planes. IV contrast was not administered for this examinatio n. A dose lowering technique was utilized adhering to the principles of ALARA. FINDINGS: There is no axillary or internal mammary lymphadenopathy seen. Evaluation of the thoracic inlet is limited due to beam hardening artifact from bilateral metallic pr osthetic shoulder joints. Few small mediastinal lymph nodes are seen, measuring less than 1 cm in velma rt axis and nonpathological by CT size criteria. Thyroid: No definite abnormalities are seen within thyroid gland this limited exam. Large hiatal lindsay ia is seen. Thoracic aorta: Is normal in caliber with scattered calcifications of its wall. Main pulmonary artery is normal in caliber. Azygos vein is prominent. Heart: The heart is normal in size and configuration, without pericardial effusion. Coronary calcific ations are seen. Lungs and pleural spaces: Tracheobronchial tree is patent. No large infiltrates are seen. No pleural effusion. Mild atelectasis at dependent portions of bilateral lower lobes are seen. -Focal subpleural consolidative lesion is seen within right middle lobe measuring approximately 3.7 x 1.5 cm in size (8/154) -3.2 x 1.8 subcentimeter focal consolidative lesion is seen within lingula (8/125. -12 x 6 mm spiculated nodule is seen within left base (8/189). -Irregular approximately 8 mm nodule is seen within right upper lobe adjacent to the right minor fiss ure (8/132) Upper abdomen: Partially visualized upper abdominal viscera is within normal limits. Skeletal structures: Multilevel degenerative changes of the spine. Osteopenia. Bilateral shoulder pro sthetic joints. No evidence of rib fracture or thoracic wall abnormalities. IMPRESSION: 1. No evidence of acute fracture or thoracic wall abnormalities are seen 2. Multifocal irregular pulmonary nodules concerning for malignant process. Triangular subpleural no dule within the right middle lobe morphology sometimes could be seen in pulmonary infarct. Evaluation is limited on this nonenhanced exam. If there is clinical suspicion for pulmonary embolus, further e valuation with CT angiography of the chest might be considered. ACT 112: Positive. There are findings on this exam that require communication between the performing entity and the patient following Patient Test Result Information Act ([place] Act 112) guidelines. The above report was generated using voice recognition software. It may contain grammatical, syntax o r spelling errors. Electronically signed by: Melissa Yarbrough DO 02/26/2021 1:45 PM
--- NOTE | 2021-02-26 13:49 | CT Scan Report ---
CT thoracic spine wo con HISTORY: 81 years-old Female Pt c/o fall, back pain mid and low back pain status post fall COMPARISON: CT chest and lumbar spine studies of same day, lumbar spine radiographs 06/20/2019. TECHNIQUE: Multiple axial CT images of the thoracic spine were obtained without the use of IV contras t. A dose lowering technique was used consistent with the principals of ALARA. FINDINGS: Chronic L1 compression deformity with retropulsion is partially imaged. Demineralized appearance of t he bones. Mild multilevel intervertebral disc space narrowing with anterior plate bridging osteophyto sis. Chronic appearing fracture is noted through the bridging anterior osteophyte at T7-T8. Mild to m oderate multilevel facet arthrosis. No acute fracture or subluxation identified. No paravertebral sonia ma. Trace left pleural effusion. Large hiatal hernia. Cardiomegaly. No pneumothorax identified. IMPRESSION: 1. No acute fracture or subluxation identified. 2. Partially imaged chronic L1 compression deformity. ACT 112: Negative or not required by law. The above report was generated using voice recognition software. It may contain grammatical, syntax o r spelling errors. Electronically signed by: Charles Baron M.D. 02/26/2021 1:47 PM
--- NOTE | 2021-02-26 13:56 | CT Scan Report ---
CT pelvis wo con CT DOSE: CLINICAL HISTORY: Pt c/o left sided hip pain TECHNIQUE: A dose lowering technique was utilized adhering to the principles of ALARA. COMPARISON STUDY: None. FINDINGS: Comminuted and slightly displaced fracture at the long peripheral portion of the left iliac wing. No other fractures are seen. Evaluation is limited due to diffuse osteopenia. Severe degenerative changes of the lower lumbar spine are seen. Limited evaluation of pelvic viscera shows fat-containing hernia within the anterior abdominal wall, severe diverticulosis of sigmoid colon without evidence of diverticulitis and fecal impaction. IMPRESSION: 1. Comminuted and slightly displaced rib fracture of the long peripheral portion of the left iliac w ing. 2. Diverticulosis of sigmoid colon without evidence of diverticulitis. 3. Fecal impaction. 4. Osteopenia. ACT 112: Negative or not required by law. The above report was generated using voice recognition software. It may contain grammatical, syntax o r spelling errors. Electronically signed by: Melissa Yarbrough DO 02/26/2021 1:55 PM
[2021-02-26 14:44] LABS: Appearance Urine Clear (Clear); Bilirubin Urine Negative (Negative); Blood Urine Negative (Negative); Color Urine Yellow; Glucose Urine UA Negative (Negative); Ketones Urine 1+ (Negative); Leukocyte Esterase Urine Negative (Negative); Nitrite Urine Negative (Negative); Protein Urine Negative (Negative); Specific Gravity Urine 1.026 (1.000-1.030); Urobilinogen Urine Negative (Negative)
--- NOTE | 2021-02-26 14:51 | Electrocardiogram Report ---
Test Reason : Blood Pressure : / mmHG Vent. Rate : 093 BPM Atrial Rate : 093 BPM P-R Int : 150 ms QRS Dur : 072 ms QT Int : 388 ms P-R-T Axes : 054 012 008 degrees QTc Int : 482 ms Sinus rhythm with occasional Premature ventricular complexes Nonspecific ST abnormality Abnormal ECG When compared with ECG of 19-DEC-2017 09:56, Premature ventricular complexes are now Present Confirmed by Kris Lay ([id number]) on 02/26/2021 2:50:38 PM Referred By: REFERRED SELF Confirmed By:Kris Lay
[2021-02-26] MEDS ORDERED: OPTIRAY 320 125ml IV ONE (15:29)
--- NOTE | 2021-02-26 15:50 | CT Scan Report ---
CT ANGIOGRAM OF THE CHEST CLINICAL HISTORY: Atypical chest pain. COMPARISON STUDY: Unenhanced chest CT performed the same day 02/26/2021. TECHNIQUE: Following the IV administration of 119 cc of Optiray 320, CT angiogram of the chest was pe rformed from the upper abdomen to the thoracic inlet utilizing the pulmonary embolus protocol. Images are reviewed in the axial, sagittal, and coronal planes. 3-D MIPS images are created and assessed. I V contrast was administered without complication. A dose lowering technique was utilized adhering to the principles of ALARA. There is streak artifact from bilateral shoulder arthroplasties. CT DOSE: 693.21 mGy.cm FINDINGS: Thyroid: Imaged portions of the thyroid gland are normal in size and attenuation. An 8 mm low-attenua tion nodule is noted in the right lobe. Thoracic aorta: There is atherosclerotic calcification of the thoracic aorta, which is normal in pati maricruz and demonstrates standard 3-vessel arch anatomy. No dissection is seen. Pulmonary vasculature: The pulmonary trunk is normal in caliber. There are no filling defects identif ied in main, lobar, or segmental pulmonary branches to suggest pulmonary embolus. Heart: The heart is mildly enlarged and without pericardial effusion. The coronary arteries are dense ly calcified. Lungs and pleural spaces: There is bibasilar scarring/atelectasis. Segmental atelectasis is suggested in the lingula. Pleural-based opacities are again seen in the lateral right middle lobe, as well as along the minor fissure. Similar opacities are seen at the medial left lung base on image #64. There is no airspace consolidation typical for pneumonia or pleural effusion. Scattered calcified granuloma s are observed. Mediastinum: There is diffuse esophageal wall thickening. No mediastinal adenopathy is identified. Aubrie: Clear. Axillae: There is no axillary lymphadenopathy. Upper abdomen: There is a moderate to large hiatal hernia. Partially visualized upper abdominal visce ra is within normal limits. Skeletal structures: The skeletal structures are osteopenic. Degenerative change and mild hyperkyphos is are noted in the thoracic spine. No lytic or blastic bony lesions are seen. Bilateral shoulder art hroplasties are in place. IMPRESSION: 1. There is no evidence of pulmonary embolus in the main, lobar, or segmental pulmonary arteries. 2. Pleural-based opacities are again seen in the right middle lobe and at the left lung base, likely representing subpleural scarring/atelectasis versus postinflammatory change. A 3-4 month follow-up ch est CT is recommended for reassessment. 3. There is no airspace consolidation typical for pneumonia or pleural effusion. 4. Mild cardiomegaly. 5. Moderate to large hiatal hernia. 6. There is circumferential esophageal wall thickening. Correlate clinically for evidence of esophagi tis. This could be further assessed with endoscopy if clinically warranted. 7. Additional findings as above. ACT 112: Negative or not required by law. Electronically signed by: Joss Canchola M.D. 02/26/2021 3:48 PM
--- NOTE | 2021-02-26 16:35 | XRay Report ---
XR femur LT 2V routine CLINICAL HISTORY: Left femur and hip pain COMPARISON: None. DISCUSSION: No acute femoral fractures are visualized. There is a partially visualized left iliac win g fracture. There are moderately advanced osteoarthritic changes present within the left hip . Note i s made of vascular calcifications. There is a Son catheter in place. IMPRESSION: 1. No acute femoral fractures 2. 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 Left iliac wing fracture ACT 112: Negative or not required by law. Electronically signed by: Alex Martínez M.D. 02/26/2021 4:34 PM
--- NOTE | 2021-02-26 19:22 | History & Physical Report ---
Date of Service February 26, 2021 Assessment & Plan (1) Fall: With a fall secondary to chronic vertigo resulting in left iliac wing fracture with pain. Was down on the ground for over 24 hours Fortunately, she has no other significant injuries, no skin wounds or pressure sores. Only very mild elevation in creatine kinase as below. No renal failure or dehydration. CT of the head, cervical spine, thoracic spine, lumbar spine, pelvis, and chest all completed. Abnormal chest CT as noted below. Otherwise with degenerative changes but no other acute findings Admit to medical/surgical floor for pain control and evaluation for rehab placement -With pain from the left iliac wing fracture-give Tylenol as needed, oxycodone as needed, and IV Dilaudid as needed for severe pain -PT/OT consultation-May need rehab placement (2) Pelvic fracture: As above, pain control Consult orthopedic surgery for further opinion PT/OT consultations (3) Elevated creatine kinase: CK in the 600s, secondary to being down on the ground for over 24 hours Hydrate with IV normal saline Follow CK level in the morning Follow BMP (4) Abnormal chest CT: As per radiology report: Pleural-based opacities are again seen in the right middle lobe and at the left lung base, likely representing subpleural scarring/atelectasis versus postinflammatory change. A 3-4 month follow-up chest CT is recommended for reassessment. Patient does not have a history of smoking or any chronic lung disease Perhaps this is just all atelectasis from being down on the ground for so long Repeat CT in 3 to 4 months No evidence otherwise of pneumonia at this time-no need for antibiotics (5) Vertigo: Chronic daily vertigo, usually relieved with Karl maneuvers in the morning Continue meclizine as needed Consider ENT referral as an outpatient (6) Lumbar compression fracture: Considered old on CT scan at L1 with retropulsion 8 mm Typically swims 3 days a week and has no difficulty with lumbar radiculopathy or weakness in lower extremities Follow (7) Hiatal hernia: Noted to have large hiatal hernia on CT scan of the chest Has occasional indigestion Continue antacids as needed However, with thickened esophagus on CT, could be consistent with esophagitis She did have vomiting this morning prior to admission Start Protonix daily x2-week course (8) Meningioma: Seen again on CT head here Follows with neurosurgery at [place] and is due to follow-up with them for repeat imaging Unclear if this is related to her vertigo episodes but most likely not (9) HTN (hypertension), benign: Blood pressures are well controlled Continue home lisinopril 20 mg daily (10) DVT prophylaxis: Lovenox 40 mg SQ once daily Disposition-admit to medical/surgical floor, PT/OT consults placed, may need rehab placement History of Present Illness Chief Complaint: Fall Primary Care Provider: Katy Perez DO This patient is a 81-year-old female with a history of HTN, meningioma, tremor, ankylosing spondylitis, depression, endometrial cancer, who presents to the ER after being found down on the ground for over 24 hours. She has a history of dizziness which may or may not be related to her meningioma and this caused her fall. She reports she wakes up daily with vertigo which improves with doing Karl maneuvers at home. She had come back and from going to the swimming pool this morning and was wearing her wet bathing suit when she had onset of vertigo and fell to the hard kitchen floor. She was unable to get back off the ground due to pain in her left hip until she finally was able to grab a broom stick to knock her cell phone off the countertop and call for help. She complains of pain in the left hip as well as general pain all over. She denies headache. She did have an episode of nausea with vomiting this morning while lying on the floor. She had incontinence to stool when the EMS came to pick her up. She denies chest pains or shortness of breath. She does have occasional indigestion for which she takes Tums but was unaware that she had a hiatal hernia. In the ER, she was found to have a mild leukocytosis, normal renal function, a mildly elevated CK at 622, negative troponin, normal urinalysis except 1+ ketones, negative Covid-19. On imaging, she was found to have a comminuted and slightly displaced fracture of the left iliac wing as well as fecal impaction. She was also noted to have an old L1 compression deformity. With 8 mm of retropulsion with secondary spinal canal narrowing, and multilevel spinal stenosis in the lumbar spine. Head CT showed 1.[address]. [address] angiogram of the chest was negative for PEs, but showed pleural-based opacities at right middle lobe and left lung base likely representing subpleural scarring/atelectasis versus postinflammatory change and recommended 3 to 4-month follow-up chest CT. It also showed moderate to large hiatal hernia and circumferential esophageal wall thickening possibly consistent with esophagitis. She will be admitted for pain control and possible rehab placement. Allergies Allergy/AdvReac Type Severity Reaction Status Date / Time Penicillins Allergy Mild HIVES Verified 02/26/21 14:23 morphine AdvReac Intermediate Nausea Unverified 02/26/21 14:23 Home Medications Medication Instructions Recorded Confirmed Type glucosamine-chondroitin [Osteo 1 tab PO QAM #0 08/09/16 02/26/21 History Bi-Flex] acyclovir 5 % topical ointment 1 appln TOP 6XD 10/15/19 02/26/21 History cyclosporine 0.05 % eye drops 1 drops OP Q12H 10/15/19 02/26/21 History lisinopril 20 mg tablet 20 mg PO QAM tab 10/15/19 02/26/21 History meclizine 25 mg tablet 25 mg PO TID PRN 10/15/19 02/26/21 History multivitamin 1 tab PO QAM 10/15/19 02/26/21 History cholecalciferol (vitamin D3) 25 1,000 units PO QAM 10/17/19 02/26/21 History mcg (1,000 unit) capsule Past Med/Surg History Medical History (Updated 02/26/21 @ 23:22 by Nina Beasley MD) Abnormal chest CT Facial twitching Hiatal hernia HTN (hypertension), benign Meningioma Tremor Surgical History S/P hysterectomy S/P knee surgery S/P shoulder surgery Family History Father Cancer tumor Mother Breast cancer H/O mastectomy Social History Smoking Status: Never smoker Hx Alcohol Use: Yes Feels Safe at Home: Yes Review of Systems Review of Systems: All systems reviewed & are unremarkable except as noted in HPI & below Physical Exam Constitutional: WD/WN, vitals as above Eyes: PERRL, conjunctivae normal, anicteric sclerae EOM intact bilaterally; no anisocoria and no nystagmus ENMT: external ear and nose normal, oropharynx normal Neck: trachea midline, no thyromegaly Respiratory: normal respiratory effort, lungs clear to auscultation Cardiovascular: RRR, no murmur, no edema Chest (Breasts): Chest: normal inspection of chest Gastrointestinal (Abdomen): normal bowel sounds, soft, nontender, no hepatosplenomegaly Musculoskeletal: Extremities: extremities normal to inspection; no cyanosis and no clubbing Positive TTP over left lateral hip Skin: no rashes, warm and dry Neurologic: moves all extremities and awake; no focal motor deficits Psychiatric: A+Ox3, euthymic affect Genitourinary: normal external appearance (With Osn catheter draining clear yellow urine) Lymphatic: no lymphedema Results & Data Results & Data ([facility]) Vital Signs (Past 12 Hours) Vital Signs Temp Pulse Pulse Resp BP BP Pulse Ox 02/26/21 16:00 87 17 116/62 98 02/26/21 14:00 93 H 19 130/72 97 02/26/21 12:00 97 H 18 164/106 H 98 02/26/21 11:20 36.6 C 96 H 18 170/104 H 97 Laboratory Results 02/26/21 02/26/21 02/26/21 Range/Units 16:41 16:41 14:00 WBC (4.8-10.8) K/uL RBC (4.2-5.4) M/uL Hgb (12.0-16.0) g/dL Hct (37-47) % MCV (80-100) fL MCH (25-34) pg MCHC (32-36) g/dL RDW Std Deviation (36.4-46.3) fL RDW Coeff of Johan (11.5-14.5) % Plt Count (130-400) K/uL MPV (7.4-10.4) fL Immature Gran % (Auto) % Neut % (Auto) % Lymph % (Auto) % Schoolcraft % (Auto) % Eos % (Auto) % Baso % (Auto) % Neut # (Auto) (1.4-6.5) K/uL Lymph # (Auto) (1.2-3.4) K/uL Schoolcraft # (Auto) (0.11-0.59) K/uL Eos # (Auto) (0-0.5) K/uL Baso # (Auto) (0-0.2) K/uL Immature Gran # (Auto) (0.00-0.02) K/uL Sodium (136-145) mmol/L Potassium (3.5-5.1) mmol/L Chloride (98-107) mmol/L Carbon Dioxide (21-32) mmol/L Anion Gap (3-11) BUN (7-18) mg/dl Creatinine (0.6-1.2) mg/dl Est Cr Clr Drug Dosing ml/min Est GFR ( Amer) ml/min Est GFR (Non-Af Amer) ml/min BUN/Creatinine Ratio (10-20) Glucose (70-99) mg/dl Calcium (8.5-10.1) mg/dl Total Bilirubin (0.2-1) mg/dl AST (15-37) U/L ALT (12-78) U/L Alkaline Phosphatase (45-117) U/L Total Creatine Kinase (26-192) U/L CK-MB (CK-2) (0.5-3.6) ng/ml CK/CKMB % Calc (0-3.0) Troponin I (0-0.045) ng/ml Total Protein (6.4-8.2) gm/dl Albumin (3.4-5.0) gm/dl Globulin (2.5-4.0) gm/dl Albumin/Globulin Ratio (0.9-2) Urine Color Yellow Urine Appearance Clear (Clear) Urine pH 5.0 (4.5-7.5) Ur Specific Brenton 1.026 (1.000-1.030) Urine Protein Negative (Negative) Urine Glucose (UA) Negative (Negative) Urine Ketones 1+ H (Negative) Urine Blood Negative (Negative) Urine Nitrite Negative (Negative) Urine Bilirubin Negative (Negative) Urine Urobilinogen Negative (Negative) Ur Leukocyte Esterase Negative (Negative) COVID-19 Eval Order Covid19 at [facility] SARS-CoV-2 (PCR) NEGATIVE (Negative) 02/26/21 02/26/21 02/26/21 Range/Units 12:00 12:00 12:00 WBC 12.58 H (4.8-10.8) K/uL RBC 4.72 (4.2-5.4) M/uL Hgb 14.2 (12.0-16.0) g/dL Hct 41.7 (37-47) % MCV 88.3 (80-100) fL MCH 30.1 (25-34) pg MCHC 34.1 (32-36) g/dL RDW Std Deviation 44.8 (36.4-46.3) fL RDW Coeff of Johan 13.7 (11.5-14.5) % Plt Count 276 (130-400) K/uL MPV 10.3 (7.4-10.4) fL Immature Gran % (Auto) 0.3 % Neut % (Auto) 83.8 % Lymph % (Auto) 7.5 % Schoolcraft % (Auto) 8.4 % Eos % (Auto) 0.0 % Baso % (Auto) 0.0 % Neut # (Auto) 10.54 H (1.4-6.5) K/uL Lymph # (Auto) 0.94 L (1.2-3.4) K/uL Schoolcraft # (Auto) 1.06 H (0.11-0.59) K/uL Eos # (Auto) 0.00 (0-0.5) K/uL Baso # (Auto) 0.00 (0-0.2) K/uL Immature Gran # (Auto) 0.04 H (0.00-0.02) K/uL Sodium 141 (136-145) mmol/L Potassium 3.7 (3.5-5.1) mmol/L Chloride 107 (98-107) mmol/L Carbon Dioxide 29 (21-32) mmol/L Anion Gap 5.0 (3-11) BUN 23 H (7-18) mg/dl Creatinine 0.52 L (0.6-1.2) mg/dl Est Cr Clr Drug Dosing 89.7 ml/min Est GFR ( Amer) 105.3 ml/min Est GFR (Non-Af Amer) 90.9 ml/min BUN/Creatinine Ratio 44.5 H (10-20) Glucose 112 H (70-99) mg/dl Calcium 9.0 (8.5-10.1) mg/dl Total Bilirubin 1.0 (0.2-1) mg/dl AST 36 (15-37) U/L ALT 26 (12-78) U/L Alkaline Phosphatase 74 (45-117) U/L Total Creatine Kinase 622 H (26-192) U/L CK-MB (CK-2) 8.1 H (0.5-3.6) ng/ml CK/CKMB % Calc 1.3 (0-3.0) Troponin I < 0.015 (0-0.045) ng/ml Total Protein 7.0 (6.4-8.2) gm/dl Albumin 3.5 (3.4-5.0) gm/dl Globulin 3.5 (2.5-4.0) gm/dl Albumin/Globulin Ratio 1.0 (0.9-2) Urine Color Urine Appearance (Clear) Urine pH (4.5-7.5) Ur Specific Brenton (1.000-1.030) Urine Protein (Negative) Urine Glucose (UA) (Negative) Urine Ketones (Negative) Urine Blood (Negative) Urine Nitrite (Negative) Urine Bilirubin (Negative) Urine Urobilinogen (Negative) Ur Leukocyte Esterase (Negative) COVID-19 Eval Order SARS-CoV-2 (PCR) (Negative) Diagnostic Findings Cervical Spine CT 02/26/21 12:45 CT SCAN OF THE CERVICAL SPINE CLINICAL HISTORY: Trauma. Fall. COMPARISON STUDY: No priors. TECHNIQUE: CT scan of the cervical spine is performed from the skull base to the upper thoracic spine. Images are reviewed in the axial, sagittal, and coronal planes. IV contrast was not administered for this examination. A dose lowering technique was utilized adhering to the principles of ALARA. The examination is degraded by streak artifact from the patient's shoulders. FINDINGS: Skeletal structures: The skeletal structures are osteopenic. There is no evidence of fracture or subluxation involving the cervical spine. Vertebral body height is maintained. There is minimal anterolisthesis at C3-C4 and C4-C5. Alignment is otherwise preserved. There is straightening of cervical lordosis. Anterior osteophytes are seen throughout. The odontoid process and lateral masses are intact. The atlantoaxial articulation is preserved noting abdomen and productive degenerative change. The spinous processes appear intact. There is moderate multilevel cervical spondylosis. Uncovertebral and facet arthropathy contribute to neural foraminal stenosis at several levels. Intervertebral discs: There is moderate to advanced disc space narrowing at C5- C6 and C6-C7. Central canal: Posterior disc osteophyte complexes at C5-C6 and C6-C7 likely contribute to acquired compromise of the central canal. Soft tissues: The prevertebral and paraspinous soft tissues are within normal limits. There is atherosclerotic calcification of the carotid bulbs. Calvarium: The visualized calvarium at the skull base appears intact. Brain parenchyma: Partially visualized brain parenchyma at the skull base is within normal limits. Sinuses and mastoids: The visualized paranasal sinuses are clear. The mastoid a ir cells are well pneumatized. Lung apices: Clear as visualized. IMPRESSION: 1. There is no evidence of fracture or subluxation involving the cervical spine. 2. Osteopenia and spondylotic change as above. ACT 112: Negative or not required by law. Electronically signed by: Joss Canchola M.D. 02/26/2021 1:[address] 02/26/21 12:45 CT head/brain wo con CLINICAL HISTORY: 81 years-old Female with Pt c/o fall, dizziness. Acute head injury status post fall TECHNIQUE: Multiple axial CT images of the head were obtained without contrast. A dose lowering technique was utilized adhering to the principles of ALARA. COMPARISON: Brain MRI 07/11/2019 FINDINGS: No acute intracranial hemorrhage, midline shift, intra-axial mass, hydrocephal us, territorial ischemia or abnormal extra-axial collection. Age-related involutional changes. White matter hypodensities suggestive of chronic microvascular ischemic disease. 1.6 cm calcified meningioma adjacent to the left cerebral convexity redemonstrated. Cerebral vascular calcifications. Chronic subcentimeter lacunar infarct of the left thalamus. The calvarium is intact. Mastoid air cells are clear. Mild polypoid mucosal thickening of the left maxillary sinus. Unremarkable soft tissues and orbits. IMPRESSION: 1. No acute intracranial abnormality or calvarial fracture. 2. Chronic findings as above. ACT 112: Negative or not required by law. The above report was generated using voice recognition software. It may contain grammatical, syntax or spelling errors. Electronically signed by: Charles Baron M.D. 02/26/2021 1:[address] 02/26/21 12:45 CT lumbar spine wo con CT DOSE: CLINICAL HISTORY: Back pain status post trauma TECHNIQUE: Helical images were acquired in transverse plane. Reformatted sagittal and coronal images were reviewed. A dose lowering technique was utilized adhering to the principles of ALARA. CONTRAST: No contrast was administered COMPARISON STUDY: X-ray of the lumbar spine dated 06/20/2019 FINDINGS: L1-2 level: There is no evidence of significant disc bulge or focal herniation. There is no evidence of spinal or foraminal stenosis. L2-3 level: There is a circumferential disc bulge with mild spinal stenosis. There is no significant foraminal narrowing L3-4 level: There is a circumferential disc bulge with moderate spinal stenosis. There is mild bilateral foraminal narrowing. L4-5 level: There is a circumferential disc bulge with moderate to severe spinal stenosis. There is mild bilateral foraminal narrowing L5-S1 level: There is no evidence of significant disc bulge or focal herniation. There is no evidence of spinal or foraminal stenosis. There is multilevel facet joint arthropathy. There is an old severe L1 compression fracture with 8 mm of retropulsion with secondary spinal canal narrowing IMPRESSION: 1. No acute fractures or traumatic subluxations 2. Old severe L1 compression fracture with 8 mm of retropulsion with secondary spinal canal narrowing 3. Multilevel spondylytic changes with multilevel spinal stenosis ACT 112: Negative or not required by law. Electronically signed by: Alxe Martínez M.D. 02/26/2021 1:[address] 02/26/21 12:45 CT thoracic spine wo con HISTORY: 81 years-old Female Pt c/o fall, back pain mid and low back pain status post fall COMPARISON: CT chest and lumbar spine studies of same day, lumbar spine radiographs 06/20/2019. TECHNIQUE: Multiple axial CT images of the thoracic spine were obtained without the use of IV contrast. A dose lowering technique was used consistent with the principals of ALARA. FINDINGS: Chronic L1 compression deformity with retropulsion is partially imaged. Demineralized appearance of the bones. Mild multilevel intervertebral disc space narrowing with anterior plate bridging osteophytosis. Chronic appearing fracture is noted through the bridging anterior osteophyte at T7-T8. Mild to moderate multilevel facet arthrosis. No acute fracture or subluxation identified. No paravertebral edema. Trace left pleural effusion. Large hiatal hernia. Cardiomegaly. No pneumothorax identified. IMPRESSION: 1. No acute fracture or subluxation identified. 2. Partially imaged chronic L1 compression deformity. ACT 112: Negative or not required by law. The above report was generated using voice recognition software. It may contain grammatical, syntax or spelling errors. Electronically signed by: Charles Baron M.D. 02/26/2021 1:47 PM Femur X-Ray 02/26/21 12:49 XR femur LT 2V routine CLINICAL HISTORY: Left femur and hip pain COMPARISON: None. DISCUSSION: No acute femoral fractures are visualized. There is a partially visualized left iliac wing fracture. There are moderately advanced osteoarthritic changes present within the left hip . Note is made of vascular calcifications. There is a Son catheter in place. IMPRESSION: 1. No acute femoral fractures 2. 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 Left iliac wing fracture ACT 112: Negative or not required by law. Electronically signed by: Alex Martínez M.D. 02/26/2021 4:[address] 02/26/21 12:49 CT pelvis wo con CT DOSE: CLINICAL HISTORY: Pt c/o left sided hip pain TECHNIQUE: A dose lowering technique was utilized adhering to the principles of ALARA. COMPARISON STUDY: None. FINDINGS: Comminuted and slightly displaced fracture at the long peripheral portion of the left iliac wing. No other fractures are seen. Evaluation is limited due to diffuse osteopenia. Severe degenerative changes of the lower lumbar spine are seen. Limited evaluation of pelvic viscera shows fat-containing hernia within the anterior abdominal wall, severe diverticulosis of sigmoid colon without evidence of diverticulitis and fecal impaction. IMPRESSION: 1. Comminuted and slightly displaced rib fracture of the long peripheral portion of the left iliac wing. 2. Diverticulosis of sigmoid colon without evidence of diverticulitis. 3. Fecal impaction. 4. Osteopenia. ACT 112: Negative or not required by law. The above report was generated using voice recognition software. It may contain grammatical, syntax or spelling errors. Electronically signed by: Melissa Yarbrough DO 02/26/2021 1:[address] 02/26/21 12:56 CT chest diagnostic wo con CLINICAL HISTORY: Pt c/o left sided rib pain COMPARISON STUDY: No previous studies for comparison. CT DOSE: 3768.54 mGy.cm TECHNIQUE: CT of the thorax was performed from the thoracic inlet to the lung bases. Images are reviewed in the axial, sagittal, and coronal planes. IV contrast was not administered for this examination. A dose lowering technique was utilized adhering to the principles of ALARA. FINDINGS: There is no axillary or internal mammary lymphadenopathy seen. Evaluation of the thoracic inlet is limited due to beam hardening artifact from bilateral metallic prosthetic shoulder joints. Few small mediastinal lymph nodes are seen, measuring less than 1 cm in short axis and nonpathological by CT size criteria. Thyroid: No definite abnormalities are seen within thyroid gland this limited exam. Large hiatal hernia is seen. Thoracic aorta: Is normal in caliber with scattered calcifications of its wall. Main pulmonary artery is normal in caliber. Azygos vein is prominent. Heart: The heart is normal in size and configuration, without pericardial effusion. Coronary calcifications are seen. Lungs and pleural spaces: Tracheobronchial tree is patent. No large infiltrates are seen. No pleural effusion. Mild atelectasis at dependent portions of bilateral lower lobes are seen. -Focal subpleural consolidative lesion is seen within right middle lobe measuring approximately 3.7 x 1.5 cm in size (8/154) -3.2 x 1.8 subcentimeter focal consolidative lesion is seen within lingula (8/125. -12 x 6 mm spiculated nodule is seen within left base (8/189). -Irregular approximately 8 mm nodule is seen within right upper lobe adjacent to the right minor fissure (8/132) Upper abdomen: Partially visualized upper abdominal viscera is within normal limits. Skeletal structures: Multilevel degenerative changes of the spine. Osteopenia. Bilateral shoulder prosthetic joints. No evidence of rib fracture or thoracic wall abnormalities. IMPRESSION: 1. No evidence of acute fracture or thoracic wall abnormalities are seen 2. Multifocal irregular pulmonary nodules concerning for malignant process. Triangular subpleural nodule within the right middle lobe morphology sometimes could be seen in pulmonary infarct. Evaluation is limited on this nonenhanced exam. If there is clinical suspicion for pulmonary embolus, further evaluation with CT angiography of the chest might be considered. ACT 112: Positive. There are findings on this exam that require communication between the performing entity and the patient following Patient Test Result Information Act ([place] Act 112) guidelines. The above report was generated using voice recognition software. It may contain grammatical, syntax or spelling errors. Electronically signed by: Melissa Yarbrough DO 02/26/2021 1:45 PM Chest CTA 02/26/21 14:48 CT ANGIOGRAM OF THE CHEST CLINICAL HISTORY: Atypical chest pain. COMPARISON STUDY: Unenhanced chest CT performed the same day 02/26/2021. TECHNIQUE: Following the IV administration of 119 cc of Optiray 320, CT angiogram of the chest was performed from the upper abdomen to the thoracic inlet utilizing the pulmonary embolus protocol. Images are reviewed in the axial, sagittal, and coronal planes. 3-D MIPS images are created and assessed. IV contrast was administered without complication. A dose lowering technique was utilized adhering to the principles of ALARA. There is streak artifact from bilateral shoulder arthroplasties. CT DOSE: 693.21 mGy.cm FINDINGS: Thyroid: Imaged portions of the thyroid gland are normal in size and attenuation. An 8 mm low-attenuation nodule is noted in the right lobe. Thoracic aorta: There is atherosclerotic calcification of the thoracic aorta, which is normal in caliber and demonstrates standard 3-vessel arch anatomy. No dissection is seen. Pulmonary vasculature: The pulmonary trunk is normal in caliber. There are no filling defects identified in main, lobar, or segmental pulmonary branches to suggest pulmonary embolus. Heart: The heart is mildly enlarged and without pericardial effusion. The coronary arteries are densely calcified. Lungs and pleural spaces: There is bibasilar scarring/atelectasis. Segmental atelectasis is suggested in the lingula. Pleural-based opacities are again seen in the lateral right middle lobe, as well as along the minor fissure. Similar opacities are seen at the medial left lung base on image #64. There is no airspace consolidation typical for pneumonia or pleural effusion. Scattered calcified granulomas are observed. Mediastinum: There is diffuse esophageal wall thickening. No mediastinal adenopathy is identified. Aubrie: Clear. Axillae: There is no axillary lymphadenopathy. Upper abdomen: There is a moderate to large hiatal hernia. Partially visualized upper abdominal viscera is within normal limits. Skeletal structures: The skeletal structures are osteopenic. Degenerative change and mild hyperkyphosis are noted in the thoracic spine. No lytic or blastic bony lesions are seen. Bilateral shoulder arthroplasties are in place. IMPRESSION: 1. There is no evidence of pulmonary embolus in the main, lobar, or segmental p ulmonary arteries. 2. Pleural-based opacities are again seen in the right middle lobe and at the left lung base, likely representing subpleural scarring/atelectasis versus postinflammatory change. A 3-4 month follow-up chest CT is recommended for reassessment. 3. There is no airspace consolidation typical for pneumonia or pleural effusion. 4. Mild cardiomegaly. 5. Moderate to large hiatal hernia. 6. There is circumferential esophageal wall thickening. Correlate clinically for evidence of esophagitis. This could be further assessed with endoscopy if clinically warranted. 7. Additional findings as above. ACT 112: Negative or not required by law. Electronically signed by: Joss Canchola M.D. 02/26/2021 3:48 PM ECG Additional Comments: ECG on 02/26/2021 at 1345 with sinus rhythm with PVCs, rate 93, no ischemic changes Code Status & VTE Plan Code Status DNR/DNI VTE Prophylaxis Plan VTE Prophylaxis will be ordered: Yes PG Care Time/CCT Total # of Minutes Spent Total Time Spent with Patient: Total time spent is greater than 50% in coordination of care (as documented) at patient's floor/unit and/or counseling patient: Coding Level of Care Code 73003 Initial Inpt Care Lvl 3 Diagnoses Fall W19.XXXA Pelvic fracture S32.9XXA Elevated creatine kinase R74.[address] R93.89 Vertigo R42 Lumbar compression fracture S32.000A Hiatal hernia K44.9 Meningioma D32.9 HTN (hypertension), benign I10 DVT prophylaxis Z29.9
[2021-02-26] MEDS ORDERED: MAGNESIUM HYDROXIDE SUSP 30 ML UDC PO PRN (21:42)
[2021-02-26] MEDS ORDERED: oxyCODONE HCL IR 5 MG TAB (IMMEDIATE RELEASE) PO PRN (21:42)
[2021-02-26] MEDS ORDERED: ACETAMINOPHEN 500 MG TAB PO PRN (21:42)
[2021-02-26] MEDS ORDERED: ONDANSETRON INJ 2 MG/ML 2 ML VIAL IV PRN (21:42)
[2021-02-26] MEDS ORDERED: ENOXAPARIN INJ 40 MG/0.4 ML SYR SQ SCH (21:42)
[2021-02-26] MEDS ORDERED: CYCLOSPORINE 0.05% OP SCH (21:42)
[2021-02-26] MEDS ORDERED: POLYETHYLENE (MIRALAX) 17 GM PACK PO PRN (21:42)
[2021-02-26] MEDS: SODIUM CHLORIDE 0.9% 1000ML 1,000 ML IV SCH (23:35)
[2021-02-27] MEDS ORDERED: MECLIZINE HCL 25 MG TAB PO PRN (00:58)
[2021-02-27] MEDS: DOCUSATE SODIUM 100 MG CAP PO SCH ×3 (01:02→20:31)
[2021-02-27 05:41] LABS: Basophils # (auto) 0.01 K/uL (0-0.2); Basophils % (auto) 0.1 %; Eosinophils # (auto) 0.16 K/uL (0-0.5); Hematocrit (blood only) 38.3 % (37-47); Hemoglobin 12.6 g/dL (12.0-16.0); Immature Granulocytes # (auto) 0.01 K/uL (0.00-0.02); Immature Granulocytes % (auto) 0.1 %; Lymphocytes # (auto) 2.46 K/uL (1.2-3.4); Lymphocytes % (auto) 31.3 %; Mean Corpuscular Hemoglobin 30.3 pg (25-34); Mean Corpuscular Hgb Conc 32.9 g/dL (32-36); Mean Corpuscular Volume 92.1 fL (80-100); Mean Platelet Volume 10.6 fL (7.4-10.4); Monocytes # (auto) 0.82 K/uL (0.11-0.59); Monocytes % (auto) 10.4 %; Neutrophils # (auto) 4.39 K/uL (1.4-6.5); Neutrophils % (auto) 56.1 %; Platelet Count 269 K/uL (130-400); RDW Coefficient of Variation 14.4 % (11.5-14.5); RDW Standard Deviation 48.5 fL (36.4-46.3); Red Blood Count 4.16 M/uL (4.2-5.4); White Blood Count 7.85 K/uL (4.8-10.8)
[2021-02-27 06:12] LABS: BUN Creatinine Ratio 39.5 (10-20); Calcium 8.1 mg/dl (8.5-10.1); Creatinine Clr Calc Pharmacy 97.9 ml/min; Est GFR (African American) 108.9 ml/min; Est GFR (Non-African American) 93.9 ml/min; Magnesium 2.1 mg/dl (1.8-2.4); Potassium 3.4 mmol/L (3.5-5.1)
[2021-02-27 06:15] LABS: Bilirubin,Total 0.9 mg/dl (0.2-1)
[2021-02-27] MEDS: SODIUM CHLORIDE 0.9% 1000ML 1,000 ML IV SCH ×2 (08:13→12:25)
[2021-02-27] MEDS: RESTASIS - ORDER AWAITING ACTION SCH ×2 (08:13→15:51)
[2021-02-27] MEDS: lisinopril 20 MG TAB PO SCH (08:14)
[2021-02-27] MEDS: ENOXAPARIN INJ 40 MG/0.4 ML SYR SQ SCH (08:14)
[2021-02-27] MEDS: MULTIVITAMIN TAB PO SCH (08:14)
[2021-02-27] MEDS: PANTOprazole 40 MG TAB PO SCH (08:14)
[2021-02-27] MEDS: CHOLECALCIFEROL 1,000 UNITS 25 MCG TAB PO SCH (08:14)
[2021-02-27] MEDS ORDERED: NON-FORMULARY MEDICATION (Glucosamine-Chondroitin [Osteo Bi-Flex] 250-200 mg Tablet) PO SCH (09:00)
[2021-02-27] MEDS: HYDROmorphone INJ 0.5 MG/0.5 ML SYR IV PRN ×3 (11:30→20:31)
[2021-02-27] MEDS ORDERED: POTASSIUM CHLORIDE CRTAB 20 MEQ TABCR PO STA (12:02)
--- NOTE | 2021-02-27 12:35 | Progress Notes ---
DATE OF SERVICE: 02/27/2021. The patient has been troubled recently by vertigo. She is 81 years old. She reports that she fell a nd could not get up. She spent 2 days trying to contact help. She thinks that she hit her left hip area on the sink when she fell. She has a known history of an L1 compression fracture, which is note d on current and prior imaging studies. She complains of pain in the left hip area and is having some abdominal spasms. She denies hematuria . She has not had a bowel movement, but is passing gas. Her Son catheter does not demonstrate any evidence of blood. Her white count today is 8, hemoglobin 13, hematocrit 38, platelets are 269. X-rays and imaging studies of her lumbar thoracic spine, femur, pelvis reviewed. She has a left ted c wing fracture and an old L1 compression fracture. Dorsalis pedis on the left is palpable, posterior tibial on the right is palpable. She has intact se nsation and she can flex and extend her ankles and toes. She can do leg lifts and bend her knees wit hout difficulty. Log rolling is negative. Legs are nontender. She can move both of her arms freely . She is awake, alert, and oriented and responds to questions appropriately. There is no tenderness of the symphysis pubis or the right iliac crest. The abdomen is obese. There does not appear to be any tenderness to palpation over the posterior left or right iliac crest or the lumbar spine. She d oes have significant tenderness to palpation over the right iliac crest area. There is no bruising, swelling, or break in the skin noted in the left iliac crest region. She has a comminuted minimally displaced fracture of the left iliac crest. These are typically high energy injuries, but in this case, I think it is likely secondary to a direc t blow to that area when she fell. On the CT scan, I did not see any significant hematoma. At this time, I recommend pain control. She may be up with PT as tolerated and may weightbear as she tolerat es. We will continue to monitor her. She should be on some DVT prophylaxis. Currently, she has SCD s and Lovenox, which should be adequate. Job ID: [id number]
[2021-02-27] MEDS ORDERED: GADOBUTROL 65ML VIAL IV ONE (14:46)
--- NOTE | 2021-02-27 15:37 | Hospitalist Progress Note ---
Date of Service February 27, 2021 Assessment & Plan (1) Fall: * Secondary to chronic vertigo. * etiology of vertigo uncertain at this time. * Would advise outpatient ENT work-up for vestibular function testing. * She does have tinnitus and decreased hearing. * May be Mnire's. * Will obtain an MRI of/MRA of the brain and neck given the associated nausea and nystagmus seen on exam to rule out vertebrobasilar infarct. (2) Pelvic fracture: * Likely nonsurgical fracture. Consult orthopedics. Appreciate recommendations. * Patient has oxycodone on board for pain control along with Dilaudid for breakthrough pain. Will add Flexeril for the associated muscle spasm. (3) Elevated creatine kinase: * Not significantly elevated and has down trended with IV hydration. We will continue to trend to normal. Can decrease IV hydration rate. (4) Abnormal chest CT: * As recommended by radiology, will need a 3 to 4-month follow-up CT. * May simply be atelectasis from being down for 24 hours. * Will add incentive spirometry. * Currently, patient is afebrile without leukocytosis. * White count was slightly elevated yesterday at 12.5 but this was likely a leukemoid reaction from a fall. * No clinical evidence to suggest pneumonia. * Will monitor (5) Vertigo: * Continue meclizine as needed * As stated above, MRI/MRI of the brain and neck have been ordered * ? Mnire's disease * I recommend ENT referral as an outpatient for vestibular function testing (6) Meningioma: * Follows with neurosurgery at [place] (7) HTN (hypertension), benign: * Stable/controlled * continue home lisinopril 20 mg daily (8) DVT prophylaxis: * Lovenox 40 mg SQ once daily Plan of care to be discussed with Dr. Haywood. Further orders as warranted. Admission and Anticipated Discharge Date Admission Date: February 26, 2021 Subjective Patient seen on daily round today. She was hospitalized last evening after sustaining a GLF that occurred after sustaining a bout of vertigo. Vertigo is fairly chronic for patient. Uses Antivert prn. Has been referred to Neuro and an MRI showed a brain meningioma that patient reports was a coincidental finding and not related to her vertiginous symptoms. Yesterday, she had vertigo, nausea and 1 bout of emesis that cause her to fall. Was unable to stand. Laid on the floor for >24 hours before scooting herself to reach a broomstick to help her get her cellphone off of the counter. Upon W/U in the ED, she was found to have radiographic evidence of a comminuted/slightly displaced Fx of the left iliac wing and fecal impaction. Her CTA pf the chest showed no evidence of PE with atelectatic changes in the RML/LLL. Her WBC count was slightly elevated at 12.5 but has returned back to normal today as this was likely reactive from the fall. Her CK was elevated at 622 and has downtrended to 354 with IV hydration. Today, her potassium is slightly low at 3.4, The only pain that she is experiencing is "spasms" in her low back that are radiating around the bilateral chest wall. Still with intermittent vertigo and nausea. No vomiting. Has seen Neuro in the past for vertigo and has gone to OP PT for [facility]. Has never seen ENT of had VFT. Does admit to tinnitus and perhaps diminished hearing. Does reside alone in a 1 story home. Ramp to get into the home. Review of Systems Review of Systems: + vertigo (that is definitely described as a spinning sensation and not a lightheaded feeling), nausea, spasms in the low back. Denies fevers, chills, headache, nasal congestion, sore throat, cough, chest pain, shortness of breath, abdominal pain, vomiting, GI/ symptomatology. Physical Exam Physical Exam: General:resting comfortably in her hospital bed. A&O X3 NAD. Does not appear ill or toxic HEENT: mild nystagmus in the left lateral gaze (few beats) Cardiac: RRR with 2/6 RANDY Lungs: CTA without W/R/R Abdomen: Normoactive X4. Soft and nontender in all quadrants. Extremities: No peripheral clubbing cyanosis or edema Results & Data Results & Data ([facility]) Vital Signs (Past 12 Hours) Vital Signs Temp Pulse Resp BP Pulse Ox 02/27/21 07:07 36.6 C 95 H 18 131/76 98 Laboratory Results 02/27/21 05:12 02/27/21 05:12 Total CK: 622 (02/26/21) and 354 today Diagnostic Findings Diagnostic studies done in the ED reviewed PG Care Time/CCT Total # of Minutes Spent Total Time Spent with Patient: Total time spent is greater than 50% in coordination of care (as documented) at patient's floor/unit and/or counseling patient: Coding [place] [address] Subseq Hosp Care Lvl 3 Patient Type Established History Detailed Exam Detailed Medical Decision Making Moderate Complexity Diagnoses Fall W19.XXXA Encounter type: initial encounter Pelvic fracture S32.392A Encounter type: initial encounter Pelvic bone location: ilium Fracture type: closed Laterality: left Fracture morphology: other fracture Elevated creatine kinase R74.[address] R93.89 Vertigo R42 Meningioma D32.9 HTN (hypertension), benign I10 DVT prophylaxis Z29.9 Time Spent (min) 60 (1) Fall Encounter type: initial encounter Qualified Code(s): W19.XXXA - Unspecified fall, initial encounter (2) Pelvic fracture Encounter type: initial encounter Pelvic bone location: ilium Fracture type: closed Laterality: left Fracture morphology: other fracture Qualified Code(s): S32.392A - Other fracture of left ilium, initial encounter for closed fracture
--- NOTE | 2021-02-27 16:20 | Magnetic Resonance Report ---
MR ANGIOGRAPHY OF THE [place] NO CONTRAST CLINICAL HISTORY: Possible vertebral basilar stroke. COMPARISON STUDY: None. A 3-D [id number] MR angiographic sequence of the [place] was performed. Both the source and projection images were reviewed. The examination is motion compromised. Left vertebral artery appears hypoplastic. There is a left pos terior cerebral artery stenosis. There is attenuation of the left middle cerebral artery branches. Th ere are no lesion suspicious for aneurysm. IMPRESSION: 1. Motion compromised study 2. No evidence of aneurysm 3. Left posterior cerebral artery stenosis. Attenuation of the left middle cerebral artery branches a t the level of the sylvian fissure 4. The distal left vertebral artery appears small. 5. CT angiography might be more accurate as this required less patient cooperation. ACT 112: Negative or not required by law. Electronically signed by: Alex Martínez M.D. 02/27/2021 4:19 PM
--- NOTE | 2021-02-27 16:21 | Magnetic Resonance Report ---
NECK MRA HISTORY: History of meningioma endometrial carcinoma. Dizziness. Patient found on the floor. assess brainstem, carotid flow TECHNIQUE: [id number] and gadolinium-enhanced MRA of the neck was performed both before and after the intravenous administration of contrast. All measurements were calculated based on NASCET criteri a. COMPARISON STUDY: None. FINDINGS: The study is motion compromised. There is no evidence of hemodynamic significant right inte rnal carotid artery stenosis. There is equivocal left carotid bulb stenosis. There is an equivocal mi ld stenosis of the left vertebral origin. The distal left vertebral artery appears small. IMPRESSION: 1. Motion compromised study 2. No evidence of right internal carotid artery stenosis 3. Equivocal left carotid bulb stenosis 4. Equivocal mild stenosis of the left vertebral origin 4. Small distal left vertebral artery. 6. CT angiography might be more accurate as this study requires less patient cooperation. ACT 112: Negative or not required by law. Electronically signed by: Alex Martínez M.D. 02/27/2021 4:19 PM
--- NOTE | 2021-02-27 16:29 | Magnetic Resonance Report ---
MRI OF THE BRAIN WITHOUT AND WITH IV CONTRAST CLINICAL HISTORY: Possible posterior fossa stroke. Dizziness. Patient found on the ground. History of meningioma. History of endometrial carcinoma. COMPARISON STUDY: 07/11/2019 TECHNIQUE: MRI of the brain was performed from the vertex to the skull base utilizing various T1 and T2 weighted sequences. Following the IV administration of 9 mL of Gadavist contrast, additional enhan keely images were obtained. FINDINGS: Sagittal T1, axial diffusion, proton density and T2 weighted axial, coronal FLAIR, and pre and post a xial T1-weighted images were acquired. These were supplemented with post gadolinium coronal T1 weight ed images. There is an enhancing 14 mm extra-axial dural based left frontoparietal mass, similar to the prior st udy and consistent with a meningioma. There is an 8 mm focus of increased signal on axial diffusion-weighted images within the left parieta l white matter. There is no corresponding focus of decreased signal on the ADC map. There is a focus of increased T2 signal in this area, and therefore the differential diagnosis is between subacute inf arct and T2 shine through. There is no evidence of ventricular dilatation. Proton density T2-weighted and FLAIR images reveal extensive foci of increased T2 signal within the w devyn matter, thalami, and [place], likely on a small vessel basis. There are no abnormal flow voids. IMPRESSION: 1. Redemonstration of a 16mm dural based left frontal parietal extra-axial mass, consistent with a me ningioma 2. Extensive foci of increased T2 and FLAIR signal within the white matter, likely on a small vessel basis 3. 8 mm focus increased signal on axial diffusion-weighted images, subacute infarct versus T2 shine t hrough ACT 112: Negative or not required by law. Electronically signed by: Alex Martínez M.D. 02/27/2021 4:28 PM
--- NOTE | 2021-02-27 17:03 | Emergency Department Note ---
Impression & Plan Fall, Pelvic fracture, Lumbar compression fracture, Elevated creatine kinase ED Provider Note NAME: JORDY IBARRA AGE: 81 SEX: F : 1940 ARRIVES VIA: Ambulance INFORMANT: Patient, ED PROVIDER(S): Jori Malcolm MD CHIEF COMPLAINT: Dizziness, fall HPI: This is a 81-year-old female who has a history of vertigo and dizziness. The patient reports last evening she became unbalanced and fell. She was then laid on the ground for the next 16 hours until she was discovered today by her neighbor who called for the ambulance. Upon arrival to the emergency department the patient is complaining of hip pain. She reports the pain is made worse with movement she reports nothing makes the pain better. She has had nothing for the pain prior to arrival. ROS: See above HPI for pertinent positives & negatives. A total of 10 systems reviewed and were otherwise negative. PAST MEDICAL HISTORY: See Below PAST SURGICAL HISTORY: See Below FAMILY HISTORY: See Below SOCIAL HISTORY: See Below HOME MEDICATIONS: See Below ALLERGIES: See Below VITALS: See Below PHYSICAL EXAMINATION: VITAL SIGNS - Vital signs and nursing notes were reviewed. GENERAL - 81-year-old female appearing stated age who is in no acute distress. Communicates well with provider and answers questions appropriately. SKIN - Without rashes. HEAD - NC/AT. EYES - PERRL with EOMI bilaterally. Sclera anicteric. Palpebral conjunctiva pink and moist with no injection noted. EARS - No deformities of external structures noted on gross examination bilaterally. NOSE - Midline and without cyanosis. No epistaxis or purulent drainage noted. Septum midline without deviation or septal hematoma noted. MOUTH/OROPHARYNX - Without perioral cyanosis. Buccal mucosa pink and moist and without leukoplakia. Tongue midline with equal elevation of palate bilaterally. No tonsillar hypertrophy, erythema, or exudates noted. NECK - Neck with FROM. Supple to palpation. No nuchal rigidity. LUNGS - Chest wall symmetric without accessory muscle use, intercostals retractions, or central cyanosis. Normal vesicular breath sounds CTA B/L. No wheezes, rales, or rhonchi appreciated. CARDIAC - RRR with S1/S2. No murmur, rubs, or gallops appreciated. ABDOMEN - Abdominal contour without pulsations or visible masses. BS no rmoactive all four quadrants. No tenderness, palpable masses, hepatosplenomegaly, or ascites noted. EXTREMITIES -patient complaining of left hip pain. Has good range of motion bilaterally of the hips. NEUROLOGIC - Cranial nerves II through XII grossly intact. Sensory intact to light touch throughout. Patellar reflexes +2/4. PSYCH - A&Ox3 and cooperates fully with examiner. Pt is very pleasant and interacts well with examiner. MEDICAL DECISION MAKING: Patient was seen and evaluated as above in room B4. Review was performed of nursing notes and vital signs. I did review pertinent previous visits and patient history. After obtaining a thorough history and physical examination the above work up was performed. This 81-year-old female who presents to the emergency department after laying on the ground for a day. Using shared medical decision making patient was sent for CT of the head as well as her spine. Spine shows an old compression deformity. She has a pelvic wing fracture. Based on all these findings I do feel that the patient should be admitted to the hospital for pain control as well as possible placement. She was given Dilaudid here for her pain. Repeat examination revealed improvement the patient's symptoms. An order was placed for continuous cardiac monitoring. The monitor shows a rate of 74 with Normal SInus rhythm. The patient was evaluated during a period of high volume and high acuity during the global COVID-19 pandemic, and that diagnosis was suspected/considered upon their initial presentation. Their evaluation, treatment and testing was co nsistent with current guidelines for patients who present with complaints or symptoms that may be related to COVID-19. Patient was seen while provider was wearing PPE. Triage Nursing notes reviewed. Prior medical records reviewed Vital Signs: reviewed and remarkable for no significant abnormalities Differential diagnosis: Infection, dehydration, metabolic abnormality, hypo/hyperglycemia, electrolyte disturbance, anemia, hypoxia, cardiac sources, intracerebral event, toxicologic, neurologic, as well as other pathologies. ER treatment provided: See below Diagnostics interpreted by me: ECG: EKG shows a sinus rhythm with occasional PVC no ST elevation or depression QTC is 42 ventricular rate is 93 EKG is compared to 12/19/2017 PVCs are now present. Laboratory studies: As stated above and show below. Imaging studies: See below Consultation(s): Internal Medicine Past Med/Surg History Medical History (Updated 02/27/21 @ 17:12 by Jori Malcolm MD) Abnormal chest CT Facial twitching Hiatal hernia HTN (hypertension), benign Meningioma Tremor Surgical History S/P hysterectomy S/P knee surgery S/P shoulder surgery Family History Father Cancer tumor Mother Breast cancer H/O mastectomy Social History Smoking Status: Never smoker Hx Alcohol Use: Yes Hx Substance Use: No Preferred Language: Guyanese Communication Ability: Effective Photo Finisher Required: No Beliefs That Will Affect Care: None Current Living Situation: Alone Feels Safe at Home: Yes Safety Concerns: Feels Safe At This Time Assistive Devices: None Allergies Allergies Allergy/AdvReac Type Severity Reaction Status Date / Time Penicillins Allergy Mild HIVES Verified 02/26/21 23:41 morphine AdvReac Intermediate Nausea Verified 02/26/21 23:41 Home Meds Home Medications Medication Instructions Recorded Confirmed glucosamine-chondroitin [Osteo 1 tab PO QAM #0 08/09/16 02/26/21 Bi-Flex] acyclovir 5 % topical ointment 1 appln TOP 6XD 10/15/19 02/26/21 cyclosporine 0.05 % eye drops 1 drops OP Q12H 10/15/19 02/26/21 lisinopril 20 mg tablet 20 mg PO QAM tab 10/15/19 02/26/21 meclizine 25 mg tablet 25 mg PO TID PRN 10/15/19 02/26/21 multivitamin 1 tab PO QAM 10/15/19 02/26/21 cholecalciferol (vitamin D3) 25 1,000 units PO QAM 10/17/19 02/26/21 mcg (1,000 unit) capsule Results & Data (ED) Vital Signs Vital Signs - 24 hr 02/26/21 19:00 02/26/21 19:15 02/26/21 19:30 Pulse Rate 98 H 100 H 101 H Respiratory Rate 18 19 21 Blood Pressure 127/64 Blood Pressure Mean 85 02/26/21 19:32 02/26/21 19:35 02/26/21 19:45 Pulse Rate 104 H 95 H 93 H Respiratory Rate 24 16 14 Blood Pressure 130/70 Blood Pressure Mean 90 02/26/21 20:00 02/26/21 20:15 Pulse Rate 94 H 91 H Respiratory Rate 13 15 Blood Pressure 121/63 Blood Pressure Mean 82 Home Medications Current Medication List: was personally reviewed by me Laboratory Data Attestation: I reviewed the patient's lab results. Result diagrams: 02/27/21 05:12 02/27/21 05:12 Lab Results 02/26/21 02/26/21 02/26/21 Range/Units 12:00 12:00 12:00 WBC 12.58 H (4.8-10.8) K/uL RBC 4.72 (4.2-5.4) M/uL Hgb 14.2 (12.0-16.0) g/dL Hct 41.7 (37-47) % MCV 88.3 (80-100) fL MCH 30.1 (25-34) pg MCHC 34.1 (32-36) g/dL RDW Std Deviation 44.8 (36.4-46.3) fL RDW Coeff of Johan 13.7 (11.5-14.5) % Plt Count 276 (130-400) K/uL MPV 10.3 (7.4-10.4) fL Immature Gran % (Auto) 0.3 % Neut % (Auto) 83.8 % Lymph % (Auto) 7.5 % [place] % (Auto) 8.4 % Eos % (Auto) 0.0 % Baso % (Auto) 0.0 % Neut # (Auto) 10.54 H (1.4-6.5) K/uL Lymph # (Auto) 0.94 L (1.2-3.4) K/uL [place] # (Auto) 1.06 H (0.11-0.59) K/uL Eos # (Auto) 0.00 (0-0.5) K/uL Baso # (Auto) 0.00 (0-0.2) K/uL Immature Gran # (Auto) 0.04 H (0.00-0.02) K/uL Sodium 141 (136-145) mmol/L Potassium 3.7 (3.5-5.1) mmol/L Chloride 107 (98-107) mmol/L Carbon Dioxide 29 (21-32) mmol/L Anion Gap 5.0 (3-11) BUN 23 H (7-18) mg/dl Creatinine 0.52 L (0.6-1.2) mg/dl Est Cr Clr Drug Dosing 89.7 ml/min Est GFR ( Amer) 105.3 ml/min Est GFR (Non-Af Amer) 90.9 ml/min BUN/Creatinine Ratio 44.5 H (10-20) Glucose 112 H (70-99) mg/dl Calcium 9.0 (8.5-10.1) mg/dl Total Bilirubin 1.0 (0.2-1) mg/dl AST 36 (15-37) U/L ALT 26 (12-78) U/L Alkaline Phosphatase 74 (45-117) U/L Total Creatine Kinase 622 H (26-192) U/L CK-MB (CK-2) 8.1 H (0.5-3.6) ng/ml CK/CKMB % Calc 1.3 (0-3.0) Troponin I < 0.015 (0-0.045) ng/ml Total Protein 7.0 (6.4-8.2) gm/dl Albumin 3.5 (3.4-5.0) gm/dl Globulin 3.5 (2.5-4.0) gm/dl Albumin/Globulin Ratio 1.0 (0.9-2) Urine Color Urine Appearance (Clear) Urine pH (4.5-7.5) Ur Specific [place] (1.000-1.030) Urine Protein (Negative) Urine Glucose (UA) (Negative) Urine Ketones (Negative) Urine Blood (Negative) Urine Nitrite (Negative) Urine Bilirubin (Negative) Urine Urobilinogen (Negative) Ur Leukocyte Esterase (Negative) COVID-19 Eval Order SARS-CoV-2 (PCR) (Negative) 02/26/21 02/26/21 02/26/21 Range/Units 14:00 16:41 16:41 WBC (4.8-10.8) K/uL RBC (4.2-5.4) M/uL Hgb (12.0-16.0) g/dL Hct (37-47) % MCV (80-100) fL MCH (25-34) pg MCHC (32-36) g/dL RDW Std Deviation (36.4-46.3) fL RDW Coeff of Johan (11.5-14.5) % Plt Count (130-400) K/uL MPV (7.4-10.4) fL Immature Gran % (Auto) % Neut % (Auto) % Lymph % (Auto) % [place] % (Auto) % Eos % (Auto) % Baso % (Auto) % Neut # (Auto) (1.4-6.5) K/uL Lymph # (Auto) (1.2-3.4) K/uL [place] # (Auto) (0.11-0.59) K/uL Eos # (Auto) (0-0.5) K/uL Baso # (Auto) (0-0.2) K/uL Immature Gran # (Auto) (0.00-0.02) K/uL Sodium (136-145) mmol/L Potassium (3.5-5.1) mmol/L Chloride (98-107) mmol/L Carbon Dioxide (21-32) mmol/L Anion Gap (3-11) BUN (7-18) mg/dl Creatinine (0.6-1.2) mg/dl Est Cr Clr Drug Dosing ml/min Est GFR ( Amer) ml/min Est GFR (Non-Af Amer) ml/min BUN/Creatinine Ratio (10-20) Glucose (70-99) mg/dl Calcium (8.5-10.1) mg/dl Total Bilirubin (0.2-1) mg/dl AST (15-37) U/L ALT (12-78) U/L Alkaline Phosphatase (45-117) U/L Total Creatine Kinase (26-192) U/L CK-MB (CK-2) (0.5-3.6) ng/ml CK/CKMB % Calc (0-3.0) Troponin I (0-0.045) ng/ml Total Protein (6.4-8.2) gm/dl Albumin (3.4-5.0) gm/dl Globulin (2.5-4.0) gm/dl Albumin/Globulin Ratio (0.9-2) Urine Color Yellow Urine Appearance Clear (Clear) Urine pH 5.0 (4.5-7.5) Ur Specific [place] 1.026 (1.000-1.030) Urine Protein Negative (Negative) Urine Glucose (UA) Negative (Negative) Urine Ketones 1+ H (Negative) Urine Blood Negative (Negative) Urine Nitrite Negative (Negative) Urine Bilirubin Negative (Negative) Urine Urobilinogen Negative (Negative) Ur Leukocyte Esterase Negative (Negative) COVID-19 Eval Order Covid19 at [facility] SARS-CoV-2 (PCR) NEGATIVE (Negative) Administered Medications Docusate Sodium (Docusate Sodium 100 Mg Cap) 100 mg PO BID SORAYA Stop: 03/28/21 21:41 Last Admin: 02/27/21 08:17 Dose: 100 mg Documented by: [id number] Admin: 02/27/21 01:02 Dose: 100 mg Documented by: [id number] Enoxaparin Sodium (Enoxaparin Inj 40 Mg/0.4 Ml Syr) 40 mg SQ Q24H SORAYA Stop: 03/29/21 08:59 Last Admin: 02/27/21 08:14 Dose: 40 mg Documented by: [id number] Hydromorphone HCl (Hydromorphone Inj 0.5 Mg/0.5 Ml Syr) 0.5 mg IV Q4 PRN PRN Reason: Pain Stop: 03/12/21 21:41 Last Admin: 02/27/21 16:07 Dose: 0.5 mg Documented by: [id number] Admin: 02/27/21 11:30 Dose: 0.5 mg Documented by: [id number] Sodium Chloride (Nss 1000ml) 1,000 mls @ 80 mls/hr IV .[id number] SORAYA Stop: 03/28/21 20:17 Last Admin: 02/27/21 12:25 Dose: 80 mls/hr Documented by: [id number] Infusion: 02/27/21 12:25 Dose: 125 mls/hr Documented by: [id number] Admin: 02/27/21 08:13 Dose: 125 mls/hr Documented by: [id number] Infusion: 02/27/21 07:35 Dose: 125 mls/hr Documented by: [id number] Admin: 02/26/21 23:35 Dose: 125 mls/hr Documented by: [id number] Lisinopril (Lisinopril 20 Mg Tab) 20 mg PO QAM SORAYA Stop: 03/29/21 08:59 Last Admin: 02/27/21 08:14 Dose: 20 mg Documented by: [id number] Miscellaneous (Restasis - Order Awaiting Action) 1 ea N/A QS SORAYA Stop: 03/29/21 07:59 Last Admin: 02/27/21 15:51 Dose: Not Given Documented by: [id number] Admin: 02/27/21 08:13 Dose: Not Given Documented by: [id number] Multivitamins (Multivitamin Tab) 1 tab PO [facility] Stop: 03/29/21 08:59 Last Admin: 02/27/21 08:14 Dose: 1 tab Documented by: [id number] Pantoprazole Sodium (Pantoprazole 40 Mg Tab) 40 mg PO [facility] Stop: 03/29/21 08:59 Last Admin: 02/27/21 08:14 Dose: 40 mg Documented by: [id number] Vitamin D (Cholecalciferol 1,000 Units 25 Mcg Tab) 1,000 units PO [facility] Stop: 03/29/21 08:59 Last Admin: 02/27/21 08:14 Dose: 1,000 units Documented by: [id number] Discontinued Medications Enoxaparin Sodium (Enoxaparin Inj 40 Mg/0.4 Ml Syr) 40 mg SQ Q24H [facility] Stop: 03/28/21 21:41 Last Admin: 02/27/21 01:02 Dose: Not Given Documented by: [id number] Gadobutrol (Gadobutrol 65ml Vial) 9 ml IV ONCE ONE Stop: 02/27/21 14:47 Last Admin: 02/27/21 14:47 Dose: 9 ml Documented by: [id number] Hydromorphone HCl (Hydromorphone Inj 0.5 Mg/0.5 Ml Syr) 0.25 mg IV Q15M PRN PRN Reason: Pain Stop: 03/12/21 12:46 Last Admin: 02/26/21 12:55 Dose: 0.25 mg Documented by: [id number] Acetaminophen (Ofirmev) 1,000 mg in 100 mls @ 400 mls/hr IV NOW STA Stop: 02/26/21 13:01 Last Infusion: 02/26/21 13:29 Dose: 0 mls/hr Documented by: [id number] Admin: 02/26/21 12:56 Dose: 400 mls/hr Documented by: [id number] Ioversol (Optiray 320 125ml) 119 ml IV ONCE ONE Stop: 02/26/21 15:30 Last Admin: 02/26/21 15:30 Dose: 119 ml Documented by: [id number] Non-Formulary Medication (Cyclosporine [Restasis Multidose]) 1 drops OP Q12H SORAYA Stop: 03/28/21 21:41 Last Admin: 02/26/21 22:01 Dose: Not Given Documented by: [id number] Ondansetron HCl (Ondansetron Inj 2 Mg/Ml 2 Ml Vial) 4 mg IV NOW STA Stop: 02/26/21 12:48 Last Admin: 02/26/21 12:55 Dose: 4 mg Documented by: [id number] Potassium Chloride (Potassium Chloride Crtab 20 Meq Tabcr) 40 meq PO NOW STA Stop: 02/27/21 12:03 Last Admin: 02/27/21 12:24 Dose: 40 meq Documented by: [id number] Imaging Data Radiologist's Impression: Cervical Spine CT 02/26/21 12:45 CT SCAN OF THE CERVICAL SPINE CLINICAL HISTORY: Trauma. Fall. COMPARISON STUDY: No priors. TECHNIQUE: CT scan of the cervical spine is performed from the skull base to the upper thoracic spine. Images are reviewed in the axial, sagittal, and coronal pl anes. IV contrast was not administered for this examination. A dose lowering technique was utilized adhering to the principles of ALARA. The examination is degraded by streak artifact from the patient's shoulders. FINDINGS: Skeletal structures: The skeletal structures are osteopenic. There is no evidence of fracture or subluxation involving the cervical spine. Vertebral body height is maintained. There is minimal anterolisthesis at C3-C4 and C4-C5. Alignment is otherwise preserved. There is straightening of cervical lordosis. Anterior osteophytes are seen throughout. The odontoid process and lateral masses are intact. The atlantoaxial articulation is preserved noting abdomen and productive degenerative change. The spinous processes appear intact. There is moderate multilevel cervical spondylosis. Uncovertebral and facet arthropathy contribute to neural foraminal stenosis at several levels. Intervertebral discs: There is moderate to advanced disc space narrowing at C5- C6 and C6-C7. Central canal: Posterior disc osteophyte complexes at C5-C6 and C6-C7 likely contribute to acquired compromise of the central canal. Soft tissues: The prevertebral and paraspinous soft tissues are within normal limits. There is atherosclerotic calcification of the carotid bulbs. Calvarium: The visualized calvarium at the skull base appears intact. Brain parenchyma: Partially visualized brain parenchyma at the skull base is within normal limits. Sinuses and mastoids: The visualized paranasal sinuses are clear. The mastoid air cells are well pneumatized. Lung apices: Clear as visualized. IMPRESSION: 1. There is no evidence of fracture or subluxation involving the cervical spine. 2. Osteopenia and spondylotic change as above. ACT 112: Negative or not required by law. Electronically signed by: Joss Canchola M.D. 02/26/2021 1:[address] 02/26/21 12:45 CT head/brain wo con CLINICAL HISTORY: 81 years-old Female with Pt c/o fall, dizziness. Acute head injury status post fall TECHNIQUE: Multiple axial CT images of the head were obtained without contrast. A dose lowering technique was utilized adhering to the principles of ALARA. COMPARISON: Brain MRI 07/11/2019 FINDINGS: No acute intracranial hemorrhage, midline shift, intra-axial mass, hydrocephalus, territorial ischemia or abnormal extra-axial collection. Age- related involutional changes. White matter hypodensities suggestive of chronic microvascular ischemic disease. 1.6 cm calcified meningioma adjacent to the left cerebral convexity redemonstrated. Cerebral vascular calcifications. Chronic subcentimeter lacunar infarct of the left thalamus. The calvarium is intact. Mastoid air cells are clear. Mild polypoid mucosal thickening of the left maxillary sinus. Unremarkable soft tissues and orbits. IMPRESSION: 1. No acute intracranial abnormality or calvarial fracture. 2. Chronic findings as above. ACT 112: Negative or not required by law. The above report was generated using voice recognition software. It may contain grammatical, syntax or spelling errors. Electronically signed by: Charles Baron M.D. 02/26/2021 1:[address] 02/26/21 12:45 CT lumbar spine wo con CT DOSE: CLINICAL HISTORY: Back pain status post trauma TECHNIQUE: Helical images were acquired in transverse plane. Reformatted sagittal and coronal images were reviewed. A dose lowering technique was uti lized adhering to the principles of ALARA. CONTRAST: No contrast was administered COMPARISON STUDY: X-ray of the lumbar spine dated 06/20/2019 FINDINGS: L1-2 level: There is no evidence of significant disc bulge or focal herniation. There is no evidence of spinal or foraminal stenosis. L2-3 level: There is a circumferential disc bulge with mild spinal stenosis. There is no significant foraminal narrowing L3-4 level: There is a circumferential disc bulge with moderate spinal stenosis. There is mild bilateral foraminal narrowing. L4-5 level: There is a circumferential disc bulge with moderate to severe spinal stenosis. There is mild bilateral foraminal narrowing L5-S1 level: There is no evidence of significant disc bulge or focal herniation. There is no evidence of spinal or foraminal stenosis. There is multilevel facet joint arthropathy. There is an old severe L1 compression fracture with 8 mm of retropulsion with secondary spinal canal narrowing IMPRESSION: 1. No acute fractures or traumatic subluxations 2. Old severe L1 compression fracture with 8 mm of retropulsion with secondary spinal canal narrowing 3. Multilevel spondylytic changes with multilevel spinal stenosis ACT 112: Negative or not required by law. Electronically signed by: Alex Martínez M.D. 02/26/2021 1:[address] 02/26/21 12:45 CT thoracic spine wo con HISTORY: 81 years-old Female Pt c/o fall, back pain mid and low back pain status post fall COMPARISON: CT chest and lumbar spine studies of same day, lumbar spine radiographs 06/20/2019. TECHNIQUE: Multiple axial CT images of the thoracic spine were obtained without the use of IV contrast. A dose lowering technique was used consistent with the principals of ALARA. FINDINGS: Chronic L1 compression deformity with retropulsion is partially imaged. Demineralized appearance of the bones. Mild multilevel intervertebral disc space narrowing with anterior plate bridging osteophytosis. Chronic appearing fracture is noted through the bridging anterior osteophyte at T7-T8. Mild to moderate multilevel facet arthrosis. No acute fracture or subluxation identified. No paravertebral edema. Trace left pleural effusion. Large hiatal hernia. Cardiomegaly. No pneumothorax identified. IMPRESSION: 1. No acute fracture or subluxation identified. 2. Partially imaged chronic L1 compression deformity. ACT 112: Negative or not required by law. The above report was generated using voice recognition software. It may contain grammatical, syntax or spelling errors. Electronically signed by: Charles Baron M.D. 02/26/2021 1:47 PM Femur X-Ray 02/26/21 12:49 XR femur LT 2V routine CLINICAL HISTORY: Left femur and hip pain COMPARISON: None. DISCUSSION: No acute femoral fractures are visualized. There is a partially visualized left iliac wing fracture. There are moderately advanced osteoarthritic changes present within the left hip . Note is made of vascular calcifications. There is a Son catheter in place. IMPRESSION: 1. No acute femoral fractures 2. 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 Left iliac wing fracture ACT 112: Negative or not required by law. Electronically signed by: Alex Martínez M.D. 02/26/2021 4:[address] 02/26/21 12:49 CT pelvis wo con CT DOSE: CLINICAL HISTORY: Pt c/o left sided hip pain TECHNIQUE: A dose lowering technique was utilized adhering to the principles of ALARA. COMPARISON STUDY: None. FINDINGS: Comminuted and slightly displaced fracture at the long peripheral portion of the left iliac wing. No other fractures are seen. Evaluation is limited due to diffuse osteopenia. Severe degenerative changes of the lower lumbar spine are seen. Limited evaluation of pelvic viscera shows fat-containing hernia within the anterior abdominal wall, severe diverticulosis of sigmoid colon without evidence of diverticulitis and fecal impaction. IMPRESSION: 1. Comminuted and slightly displaced rib fracture of the long peripheral portion of the left iliac wing. 2. Diverticulosis of sigmoid colon without evidence of diverticulitis. 3. Fecal impaction. 4. Osteopenia. ACT 112: Negative or not required by law. The above report was generated using voice recognition software. It may contain grammatical, syntax or spelling errors. Electronically signed by: Melissa Yarbrough DO 02/26/2021 1:[address] 02/26/21 12:56 CT chest diagnostic wo con CLINICAL HISTORY: Pt c/o left sided rib pain COMPARISON STUDY: No previous studies for comparison. CT DOSE: 3768.54 mGy.cm TECHNIQUE: CT of the thorax was performed from the thoracic inlet to the lung bases. Images are reviewed in the axial, sagittal, and coronal planes. IV contrast was not administered for this examination. A dose lowering technique was utilized adhering to the principles of ALARA. FINDINGS: There is no axillary or internal mammary lymphadenopathy seen. Evaluation of the thoracic inlet is limited due to beam hardening artifact from bilateral metallic prosthetic shoulder joints. Few small mediastinal lymph nodes are seen, measuring less than 1 cm in short axis and nonpathological by CT size criteria. Thyroid: No definite abnormalities are seen within thyroid gland this limited exam. Large hiatal hernia is seen. Thoracic aorta: Is normal in caliber with scattered calcifications of its wall. Main pulmonary artery is normal in caliber. Azygos vein is prominent. Heart: The heart is normal in size and configuration, without pericardial effus ion. Coronary calcifications are seen. Lungs and pleural spaces: Tracheobronchial tree is patent. No large infiltrates are seen. No pleural effusion. Mild atelectasis at dependent portions of bilateral lower lobes are seen. -Focal subpleural consolidative lesion is seen within right middle lobe measuring approximately 3.7 x 1.5 cm in size (8/154) -3.2 x 1.8 subcentimeter focal consolidative lesion is seen within lingula (8/125. -12 x 6 mm spiculated nodule is seen within left base (8/189). -Irregular approximately 8 mm nodule is seen within right upper lobe adjacent to the right minor fissure (8/132) Upper abdomen: Partially visualized upper abdominal viscera is within normal limits. Skeletal structures: Multilevel degenerative changes of the spine. Osteopenia. Bilateral shoulder prosthetic joints. No evidence of rib fracture or thoracic wall abnormalities. IMPRESSION: 1. No evidence of acute fracture or thoracic wall abnormalities are seen 2. Multifocal irregular pulmonary nodules concerning for malignant process. Triangular subpleural nodule within the right middle lobe morphology sometimes could be seen in pulmonary infarct. Evaluation is limited on this nonenhanced exam. If there is clinical suspicion for pulmonary embolus, further evaluation with CT angiography of the chest might be considered. ACT 112: Positive. There are findings on this exam that require communication between the performing entity and the patient following Patient Test Result Information Act ([place] Act 112) guidelines. The above report was generated using voice recognition software. It may contain grammatical, syntax or spelling errors. Electronically signed by: Melissa Yarbrough DO 02/26/2021 1:45 PM Chest CTA 02/26/21 14:48 CT ANGIOGRAM OF THE CHEST CLINICAL HISTORY: Atypical chest pain. COMPARISON STUDY: Unenhanced chest CT performed the same day 02/26/2021. TECHNIQUE: Following the IV administration of 119 cc of Optiray 320, CT angiogram of the chest was performed from the upper abdomen to the thoracic inlet utilizing the pulmonary embolus protocol. Images are reviewed in the axial, sagittal, and coronal planes. 3-D MIPS images are created and assessed. IV contrast was administered without complication. A dose lowering technique was utilized adhering to the principles of ALARA. There is streak artifact from bilateral shoulder arthroplasties. CT DOSE: 693.21 mGy.cm FINDINGS: Thyroid: Imaged portions of the thyroid gland are normal in size and attenuation. An 8 mm low-attenuation nodule is noted in the right lobe. Thoracic aorta: There is atherosclerotic calcification of the thoracic aorta, which is normal in caliber and demonstrates standard 3-vessel arch anatomy. No dissection is seen. Pulmonary vasculature: The pulmonary trunk is normal in caliber. There are no filling defects identified in main, lobar, or segmental pulmonary branches to suggest pulmonary embolus. Heart: The heart is mildly enlarged and without pericardial effusion. The coronary arteries are densely calcified. Lungs and pleural spaces: There is bibasilar scarring/atelectasis. Segmental atelectasis is suggested in the lingula. Pleural-based opacities are again seen in the lateral right middle lobe, as well as along the minor fissure. Similar opacities are seen at the medial left lung base on image #64. There is no airspace consolidation typical for pneumonia or pleural effusion. Scattered calcified granulomas are observed. Mediastinum: There is diffuse esophageal wall thickening. No mediastinal adenopa thy is identified. Aubrie: Clear. Axillae: There is no axillary lymphadenopathy. Upper abdomen: There is a moderate to large hiatal hernia. Partially visualized upper abdominal viscera is within normal limits. Skeletal structures: The skeletal structures are osteopenic. Degenerative change and mild hyperkyphosis are noted in the thoracic spine. No lytic or blastic bony lesions are seen. Bilateral shoulder arthroplasties are in place. IMPRESSION: 1. There is no evidence of pulmonary embolus in the main, lobar, or segmental pulmonary arteries. 2. Pleural-based opacities are again seen in the right middle lobe and at the left lung base, likely representing subpleural scarring/atelectasis versus postinflammatory change. A 3-4 month follow-up chest CT is recommended for reassessment. 3. There is no airspace consolidation typical for pneumonia or pleural effusion. 4. Mild cardiomegaly. 5. Moderate to large hiatal hernia. 6. There is circumferential esophageal wall thickening. Correlate clinically for evidence of esophagitis. This could be further assessed with endoscopy if clinically warranted. 7. Additional findings as above. ACT 112: Negative or not required by law. Electronically signed by: Joss Canchola M.D. 02/26/2021 3:48 PM Discharge Plan Visit Data Chief Complaint: Fall ED Provider: Jori Malcolm Discharge Problem: Fall, Pelvic fracture, Lumbar compression fracture, Elevated creatine kinase Patient Disposition: Admitted As Inpatient Discharge Instructions Interventions: ED Discharge Assessment Last Done: 02/26/21 20:57 Discharge Problem: Fall Qualifiers: Encounter type: initial encounter Qualified Code(s): W19.XXXA - Unspecified fall, initial encounter Pelvic fracture Qualifiers: Encounter type: initial encounter Pelvic bone location: unspecified part of pelvis Fracture type: closed Fracture alignment: nondisplaced Qualified Code(s): S32.9XXA - Fracture of unspecified parts of lumbosacral spine and pelvis, initial encounter for closed fracture Lumbar compression fracture Qualifiers: Encounter type: initial encounter Lumbar vertebra fracture level: unspecified lumbar vertebra Qualified Code(s): S32.000A - Wedge compression fracture of unspecified lumbar vertebra, initial encounter for closed fracture
[2021-02-27] MEDS: ATORVASTATIN 40 MG TAB PO SCH (20:31)
[2021-02-28] MEDS: RESTASIS - ORDER AWAITING ACTION SCH ×4 (00:01→22:37)
[2021-02-28 06:17] LABS: Basophils # (auto) 0.02 K/uL (0-0.2); Basophils % (auto) 0.3 %; Eosinophils # (auto) 0.25 K/uL (0-0.5); Eosinophils % (auto) 3.6 %; Hematocrit (blood only) 36.5 % (37-47); Hemoglobin 11.9 g/dL (12.0-16.0); Immature Granulocytes # (auto) 0.03 K/uL (0.00-0.02); Immature Granulocytes % (auto) 0.4 %; Lymphocytes # (auto) 2.61 K/uL (1.2-3.4); Mean Corpuscular Hemoglobin 29.9 pg (25-34); Mean Corpuscular Hgb Conc 32.6 g/dL (32-36); Mean Corpuscular Volume 91.7 fL (80-100); Mean Platelet Volume 10.3 fL (7.4-10.4); Monocytes % (auto) 13.1 %; Neutrophils # (auto) 3.05 K/uL (1.4-6.5); Neutrophils % (auto) 44.6 %; Platelet Count 244 K/uL (130-400); RDW Coefficient of Variation 14.6 % (11.5-14.5); Red Blood Count 3.98 M/uL (4.2-5.4); White Blood Count 6.86 K/uL (4.8-10.8)
[2021-02-28 06:53] LABS: Albumin Level 2.7 gm/dl (3.4-5.0); BUN Creatinine Ratio 36.1 (10-20); Calcium 8.1 mg/dl (8.5-10.1); Creatinine Clr Calc Pharmacy 104.6 ml/min; Est GFR (African American) 111.3 ml/min
[2021-02-28 06:58] LABS: Albumin Globulin Ratio 0.9 (0.9-2); Bilirubin,Total 0.7 mg/dl (0.2-1); Total Protein 5.7 gm/dl (6.4-8.2)
[2021-02-28] MEDS: SODIUM CHLORIDE 0.9% 1000ML 1,000 ML IV SCH (07:53)
[2021-02-28] MEDS: ASPIRIN 81 MG ECTAB PO SCH (09:14)
[2021-02-28] MEDS: ENOXAPARIN INJ 40 MG/0.4 ML SYR SQ SCH (09:14)
[2021-02-28] MEDS: MULTIVITAMIN TAB PO SCH (09:14)
[2021-02-28] MEDS: PANTOprazole 40 MG TAB PO SCH (09:14)
[2021-02-28] MEDS: CHOLECALCIFEROL 1,000 UNITS 25 MCG TAB PO SCH (09:14)
[2021-02-28] MEDS: lisinopril 20 MG TAB PO SCH (09:14)
[2021-02-28] MEDS: DOCUSATE SODIUM 100 MG CAP PO SCH ×2 (09:14→20:46)
--- NOTE | 2021-02-28 10:19 | Neurology Consultation ---
Date of Consultation February 28, 2021 Assessment & Plan (1) Abnormal brain MRI: (2) Meningioma: (3) Vertigo: I suspect the observed 8 mm focus of increased signal on axial diffusion- weighted imaging is related to T2 shine through rather than a subacute infarct. Patient's history of present illness not suggestive of a recent or subacute stroke. She does have fairly extensive chronic small vessel ischemic disease which I suspect is largely an age-related finding in her case. She does have hypertension although this issue appears to be fairly well controlled. Agree with echocardiogram as ordered. Would also consider obtaining mobile cardiac outpatient telemetry. Agree with daily low-dose aspirin and atorvastatin as ordered given the presence of fairly extensive chronic small vessel ischemic disease and possibility of subacute stroke on MRI. Further, it does appear that this patient's meningioma is about 2 mm larger in diameter compared with the previous study done in 2019. Nonetheless, this issue remains incidental. No clinical evidence to suggest seizures or other focal abnormalities related to this benign tumor. She will need additional follow-up with Dr. Siu, neurosurgery at [facility] for further monitoring going forward. If this meningioma continues to grow she may be an appropriate candidate for surgical treatment or possibly gamma knife. This issue is not urgent and can be handled as an outpatient. Patient does have a history of chronic intermittent vertigo. She could have benign positional paroxysmal vertigo as her symptoms do have a fairly consistent positional component, worse with lying back in bed, turning her head to the [place] e. Mnire's disease is also possible and I agree that she should be evaluated by ENT as an outpatient including audiology testing and possibly VNG testing. She does have a prescription for meclizine as an outpatient which has been somewhat helpful. Again, she may benefit from additional work-up as above. Physical therapy may also be of benefit. If meclizine is not helpful could consider a trial of a low-dose of diazepam. Patient may follow-up with me or Sunshine Timmons PA-C, in neurology clinic in 3 to 4 weeks. History of Present Illness Reason for Consultation: Subacute infarct versus T2 shine through on MRI Requesting Physician: Verito Alexandra PA-C Attending Physician: Giuseppe Haywood, DO History of Present Illness The patient is a 81-year-old female who is known to me, she was last seen for initial consultation in neurology clinic in October 2019 for an incidental 14 mm left frontoparietal meningioma. She has been evaluated by neurosurgery, Dr. Siu, at [facility] as well. Surgical intervention has not been recommended. Patient also has an intermittent mild right upper extremity resting tremor and has had episodic right facial twitching as well. These issues have been stable. She presented to the emergency department yesterday after a fall at home. She informs me that she had tripped while getting ready to go to the pool and was unable to get up on her own due to left hip pain. She did not lose consciousness. She was lying on the floor for over 24 hours but managed to drag herself into another room, get a broom, and knock a phone off of its perch, down to her level. She called 911 at that time and was brought to the emergency department for further evaluation and management. She has had extensive imaging including CT of the head and entire spinal column as well as brain MRI and MRA of the head and neck. The head CT revealed a 1.6 cm calcified meningioma adjacent to the left cerebral convexity. No hemorrhage or acute process. Spinal CTs were negative for subluxation or acute fracture. There was a chronic severe L1 compression fracture with secondary spinal canal narrowing. Brain MRI again revealed the 1.6 cm dural based left frontoparietal extra-axial meningioma. The meningioma did measure 14 mm on an MRI done in July 2019. There was also evidence of an 8 mm focus of increased signal on diffusion- weighted images without corresponding decreased signal on ADC mapping but with associated increased focal bright signal on T2 in this area. Finding felt to be consistent with T2 shine through or possibly a subacute infarct. MRA of the head reveals left posterior cerebral artery stenosis as well as some attenuation of the left middle cerebral artery branches at the level of the sylvian fissure and a small distal left vertebral artery. MRA of the neck reveals equivocal left carotid bulb stenosis, equivocal mild stenosis of the left vertebral origin, and a small distal left vertebral artery. I reviewed the images as well as the radiologist's interpretation of these tests and agree. Upon further questioning of the patient this morning, she denies experiencing any specific strokelike symptoms such as sudden onset unilateral weakness, speech changes, vision changes, etc. She does not have a known history of stroke or TIA. She does not take blood thinners as an outpatient. She is not on a statin. She does have a history of hypertension and is prescribed lisinopril. The patient does complain of chronic vertigo, spinning sensation, typically provoked by lying back and turning her head to the side. She does have a prescription for meclizine but finds this medication only partially helpful. She has been referred to physical therapy previously for vertigo as well. Allergies Allergy/AdvReac Type Severity Reaction Status Date / Time Penicillins Allergy Mild HIVES Verified 02/26/21 23:41 morphine AdvReac Intermediate Nausea Verified 02/26/21 23:41 Home Medications Medication Instructions Recorded Confirmed Type glucosamine-chondroitin [Osteo 1 tab PO QAM #0 08/09/16 02/26/21 History Bi-Flex] acyclovir 5 % topical ointment 1 appln TOP 6XD 10/15/19 02/26/21 History cyclosporine 0.05 % eye drops 1 drops OP Q12H 10/15/19 02/26/21 History lisinopril 20 mg tablet 20 mg PO QAM tab 10/15/19 02/26/21 History meclizine 25 mg tablet 25 mg PO TID PRN 10/15/19 02/26/21 History multivitamin 1 tab PO QAM 10/15/19 02/26/21 History cholecalciferol (vitamin D3) 25 1,000 units PO QAM 10/17/19 02/26/21 History mcg (1,000 unit) capsule Patient History Medical History Abnormal chest CT Facial twitching Hiatal hernia HTN (hypertension), benign Meningioma Tremor Surgical History S/P hysterectomy S/P knee surgery S/P shoulder surgery Family History Father Cancer tumor Mother Breast cancer H/O mastectomy Social History Smoking Status: Never smoker Hx Alcohol Use: Yes Hx Substance Use: No Preferred Language: Slovenian Communication Ability: Effective 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 Required: No Beliefs That Will Affect Care: None Current Living Situation: Alone Feels Safe at Home: Yes Safety Concerns: Feels Safe At This Time Assistive Devices: None Review of Systems Constitutional: no fever and no chills Eyes: no blind spots and no diplopia Ear, Nose, Mouth, Throat: + tinnitus, + hearing loss and + dizziness Respiratory: no cough and no dyspnea Cardiovascular: no chest pain and no palpitations Gastrointestinal: no nausea and no vomiting Genitourinary: no dysuria Musculoskeletal: + joint pain and + body aches Integumentary: no rash and no lesions Neurologic: as per Subjective / HPI and + gait abnormality; no localized weakness, no loss of sensation, no headache(s) and no memory loss Reports some mild difficulty with balance due to dizziness, has been using a cane Psychiatric: no depression and no anxiety Hematologic / Lymphatic: no easy bleeding and no easy bruising Exam (Neuro) Constitutional: well developed and well nourished; no acute distress Eyes: normal visual carr by confrontation, PERRL, normal accommodation and EOM intact bilaterally; no fundoscopic abnormality, no nystagmus and no papilledema Cardiovascular: Vessels: normal carotid upstroke; no carotid bruit Neurologic: Oriented to:: Person, Place and Time Memory: Short Term Intact and Remote Intact Attention: Span Intact and Concentration Intact Language: Naming Objects and Repeating Phrases Speech Fluency: negative Dysarthria Speech Aphasia: negative Aphasia Fund of Knowledge: Current Events, Past History and Vocabulary Cranial Nerves: Normal II (Visual carr full to confrontation, visual acuity normal), III, IV, (Pupils equal round reactive to light and accommodation, eye movements normal), V (Facial sensation intact), VII (There is no facial droop or weakness), VIII (Hearing intact), IX, X (Palate elevates to midline), XI (Shoulder shrug intact) and XII (Tongue protrudes to midline) Motor Strength: Normal Lower Extremities and Normal Upper Extremities; negative Pronator Drift Motor Tone: Normal Lower Extremities and Normal Upper Extremities Muscle Bulk/Involuntary Movements: Action Tremor; negative Muscle Atrophy Sensation: Light Touch Intact, Pain/Temperature Intact, Vibration Intact and Proprioception Intact Coordination: Heel-Sheppard Abnormal (Xobd-ea-hyux normal on the right, unable to perform on the left due to hip pain.); negative Dysdiadochokinesia and Finger- Nose Abnormal Deep Tendon Reflexes: Rt Triceps: 2+, Lt Triceps: 2+, Rt Biceps: 2+, Lt Biceps: 2+, Rt Brachioradialis: 2+, Lt Brachioradialis: 2+, Rt Patellar: 2+, Lt Patellar: 2+, Rt Ankle: 1+ and Lt Ankle: 1+ Special Tests: negative Babinski Present Details: Gait cannot be tested in the context of patient's current neurological status. Results & Data ([facility]) Vital Signs (Past 12 Hours) Vital Signs Temp Pulse Resp BP BP Pulse Ox 02/28/21 07:35 36.5 C 89 16 122/67 94 02/27/21 23:07 36.8 C 88 16 118/75 94 Laboratory Results WBC 6.86, hemoglobin 11.9, hematocrit 36.5, platelet count 244, sodium 141, potassium 4.0, BUN 16, creatinine 0.44, glucose 91, calcium 8.1, magnesium 2.0, AST 25, ALT 22, total CK 169, triglycerides 88, cholesterol 150, LDL 83, VLDL 18, HDL 49 Diagnostic Findings Imaging including CT of the head, CT of the entire spinal column, MRI of the brain, and MR angiography of the head and neck were completed and are as described in the history of present illness. I reviewed the images as well as the radiologist's interpretation of these tests. A pelvic CT reveals a slightly displaced fracture of the long peripheral portion of the left iliac wing. Electrocardiogram reveals a sinus rhythm with occasional PVCs, nonspecific ST abnormality, 93 bpm. Coding Level of Care Code 89827 Initial Inpt Care Lvl 3 Diagnoses Abnormal brain MRI R90.89 Meningioma D32.9 Vertigo R42
[2021-02-28] MEDS ORDERED: oxyCODONE HCL IR 5 MG TAB (IMMEDIATE RELEASE) PO PRN (11:00)
[2021-02-28] MEDS ORDERED: SOD PHOSPHATE/SOD BIPHOSPHATE ENEMA 132 ML BTL PR PRN (11:02)
[2021-02-28] MEDS ORDERED: bisacodyL 10 MG SUPP PR STA (11:02)
[2021-02-28] MEDS ORDERED: KETOROLAC TROMETHAMINE 15 MG/ML VIAL IV PRN (11:21)
[2021-02-28] MEDS: HYDROmorphone INJ 0.5 MG/0.5 ML SYR IV PRN (11:29)
--- NOTE | 2021-02-28 14:19 | Hospitalist Progress Note ---
Date of Service February 28, 2021 Assessment & Plan (1) Constipation: * MiraLAX ordered daily as needed * Will add Dulcolax suppository * If Dulcolax ineffective, will allow for fleets enema every 1 hour X3 or until desired effect * add colace to be given bid d/t opiate therapy on board (2) Pelvic fracture: * Likely nonsurgical fracture. Consult orthopedics. Appreciate recommendations. * pain uncontrolled. continue oxyIR (will increased to 1 tab for pain 1-5, 2 tabs for pain 6-10). In addition, will add Long acting Oxycodone for added pain control * Patient lives alone. Suspect will need placement for inpatient rehabilitation. PT/OT on boardappreciate recommendations. Case management on board. (3) Fall: * Secondary to chronic vertigo. * etiology of vertigo uncertain at this time. * Would advise outpatient ENT work-up for vestibular function testing. * She does have tinnitus and decreased hearing. * ? Mnire's. * No evidence of Vertebrobasilar infarct. ASA/Lipitor added (neuro recommends co ntinuation of these). Echo ordered and pending. (4) Elevated creatine kinase: * From laying on the floor X 24 hours- Resolved (5) Abnormal chest CT: * As recommended by radiology, will need a 3 to 4-month follow-up CT. * May simply be atelectasis from being down for 24 hours. * on incentive spirometry. * Currently, patient is afebrile without leukocytosis. * No clinical evidence to suggest pneumonia. * Will monitor symptoms (6) Vertigo: * Continue meclizine as needed. Symptoms currently controlled. Can initiate low-dose diazepam as recommended by neuro if meclizine no longer effective. * I recommend ENT referral as an outpatient for vestibular function testing (7) Meningioma: * Follows with neurosurgery at [facility] (8) HTN (hypertension), benign: * Stable/controlled * continue home lisinopril 20 mg daily (9) DVT prophylaxis: * Lovenox 40 mg SQ once daily Plan of care to be discussed with Dr. Haywood. Further orders as warranted. Admission and Anticipated Discharge Date Admission Date: February 26, 2021 Subjective Patient seen on daily rounds today. Overall, still with significant pain. Having difficulty standing given intensity of pain. Spasms are improving. Today, reports pain noted in the left knee that she didn't notice yesterday. Also, no BM x4 days. Miralax given yesterday without success. Denies F/C, CP, SOB, abd pain, N/V CK level downtrending and now normal potassium supplemented and now normal MRI/MRA of the brain and neck done to r/o vertebrobasilar CVA given vertiginous symptoms and N/V. MRI showed concern for possible left parietal subacute infarct vs T2 shine through. Subacute infarct was NOT favored given active symptoms not matching that distribution. At any rate, she was placed on ASA and Lipitor and neuro was consulted. Echo ordered-pending Today, vertigo resolved. None since yesterday. Therapy has been unable to work with patient given her inability to stand d/t the uncontrolled pain with limited and all movement. Not yet seen by Ortho Review of Systems Review of Systems: as stated in the HPI-: + uncontrolled back pain, constipation. Denies vertigo, F/C, CP, SOB, abd pain, N/V, Physical Exam Physical Exam: General: Resting comfortably in her hospital bed. A&O X3 NAD. Cardiac: RRR with 2/6 RANDY Lungs: CTA without W/R/R Abdomen: Normoactive X4. Soft and nontender in all quadrants. Extremities: No peripheral clubbing cyanosis or edema Results & Data Results & Data ([facility]) Vital Signs (Past 12 Hours) Vital Signs Temp Pulse Resp BP Pulse Ox 02/28/21 07:35 36.5 C 89 16 122/67 94 Laboratory Results 02/28/21 05:32 02/28/21 05:32 Diagnostic Findings MRI/MRA of the brain and neck 02/27/21: IMPRESSION: 1. Redemonstration of a 16mm dural based left frontal parietal extra-axial mass, consistent with a meningioma 2. Extensive foci of increased T2 and FLAIR signal within the white matter, likely on a small vessel basis 3. 8 mm focus increased signal on axial diffusion-weighted images, subacute infarct versus T2 shine through IMPRESSION: 1. Motion compromised study 2. No evidence of aneurysm 3. Left posterior cerebral artery stenosis. Attenuation of the left middle cerebral artery branches at the level of the sylvian fissure 4. The distal left vertebral artery appears small. 5. CT angiography might be more accurate as this required less patient cooperation. 1. Motion compromised study 2. No evidence of right internal carotid artery stenosis 3. Equivocal left carotid bulb stenosis 4. Equivocal mild stenosis of the left vertebral origin 4. Small distal left vertebral artery. 6. CT angiography might be more accurate as this study requires less patient cooperation. PG Care Time/CCT Total # of Minutes Spent Total Time Spent with Patient: Total time spent is greater than 50% in coordination of care (as documented) at patient's floor/unit and/or counseling patient: [place] [address] Subseq Hosp Care Lvl 3 Patient Type Established History Detailed Exam Detailed Medical Decision Making Moderate Complexity Diagnoses Constipation K59.00 Constipation type: unspecified constipation type Pelvic fracture S32.9XXA Encounter type: initial encounter Pelvic bone location: unspecified part of pelvis Fracture type: closed Fracture alignment: nondisplaced Fall W19.XXXA Encounter type: initial encounter Elevated creatine kinase R74.[address] R93.89 Vertigo R42 Meningioma D32.9 HTN (hypertension), benign I10 DVT prophylaxis Z29.9 (1) Fall Encounter type: initial encounter Qualified Code(s): W19.XXXA - Unspecified fall, initial encounter (2) Pelvic fracture Encounter type: initial encounter Pelvic bone location: unspecified part of pelvis Fracture type: closed Fracture alignment: nondisplaced Qualified Code(s): S32.9XXA - Fracture of unspecified parts of lumbosacral spine and pelvis, initial encounter for closed fracture (3) Constipation Constipation type: unspecified constipation type Qualified Code(s): K59.00 - Constipation, unspecified
--- NOTE | 2021-02-28 15:32 | XCELERA ---
[id number] \\[id number]
--- NOTE | 2021-02-28 16:15 | XRay Report ---
LEFT KNEE 3 VIEWS CLINICAL HISTORY: Fall. Left knee pain. FINDINGS: AP, crosstable lateral, and sunrise views of the left knee are obtained. No prior studies a re available for comparison at the time of dictation. The skeletal structures are osteopenic. No frac ture is seen. There is moderate to advanced tricompartmental degenerative joint space narrowing, grea test in the medial and patellofemoral compartments. There are large marginal osteophytes, patellar en thesophytes, and degenerative beaking of the tibial spine. A calcified fabella is incidentally noted. There is no significant joint effusion. Soft tissue edema is noted in the popliteal fossa. IMPRESSION: 1. No acute bony abnormality is identified. 2. Osteopenia and degenerative change as above. Electronically signed by: Joss Canchola M.D. 02/28/2021 4:13 PM
[2021-02-28] MEDS: ATORVASTATIN 40 MG TAB PO SCH (20:46)
[2021-02-28] MEDS: oxyCODONE HCL 10 MG TABCR (OxyCONTIN) PO SCH (20:46)
[2021-02-28] MEDS ORDERED: DOCUSATE SODIUM 100 MG CAP PO SCH (21:00)
[2021-03-01] MEDS: RESTASIS - ORDER AWAITING ACTION SCH ×2 (07:41→14:52)
--- NOTE | 2021-03-01 08:11 | Neurology Progress Note ---
Date of Service March 01, 2021 Assessment & Plan (1) Vertigo: (2) Meningioma: (3) Stroke: (4) Pelvic fracture: (5) Elevated creatine kinase: This patient had acute vertigo which has been improved since admission. The vertigo is positional and last a few seconds and is consistent with a benign paroxysmal positional vertigo ( inner ear abnormality ). MRI shows an 8 millimeter focus of increased signal in the left parietal white matter most consistent with a small subacute stroke without clinical accompaniment. this is likely small-vessel ischemia. MRI also shows extensive old small vessel ischemic disease and 14 millimeter left parietal meningioma which is likely unchanged compared to the previous study of 2018. She is followed in [place] by Dr. Siu. Patient had a fall with pelvic fracture and elevated CK. The CK as resolved. She has pain and has not gotten up out of bed since admission. Recommendations: 1. Increase activity as able including physical and occupational therapy. Out of bed to chair as able as well. The patient may be a rehab hospital candidate. 2. Continue 81 milligram aspirin tablet daily. 3. Continue atorvastatin 40 milligrams daily. 4. I see no need for additional neurologic testing at this time 5. Use meclizine as needed. 6. follow-up Neuro Clinic in 3-4 weeks. Overall, I spent a total of 40 minutes with this case including review of records, review of MRI films with Radiology, direct evaluation the patient at bedside, and discussion of the case with the patient at bedside and Dr. Haley, including differential diagnosis and treatment options. Admission and Anticipated Discharge Date Admission Date: February 26, 2021 Subjective Patient is doing very well this morning lying in bed. She is not dizzy or vertiginous and has no headache or double vision. She is not lightheaded. MRI of the brain showed a 14 millimeter left parietal meningioma apparently unchanged from July 2019. patient has an 8 millimeter deeper parietal change on diffusion weighted image which is considered to be "shine through" as opposed to a small subacute stroke. She has no clinical symptoms to match up with this (no weakness or numbness in the limbs and no speech problems). I reviewed these films. In addition, I reviewed the films with Drs. Canchola and Av, radiologists, and they agree with me that the 8 millimeter lesion is consistent with a small subacute stroke. There is no clinical accompaniment to this. The patient has pain in her low back and left hip has difficulty sitting up. S he has not been out of bed according to nursing. She is afebrile and blood pressure is 138/83. Labs yesterday were remarkable for triglyceride level of 88, total cholesterol 150, normal liver profile, unremarkable Chem profile with glucose 91 total CK of 160 ( improved from admission, which was elevated from a fall), and mild anemia on CBC. Results & Data ([facility]) Vital Signs (Past 12 Hours) Vital Signs Temp Pulse Pulse Resp BP Pulse Ox 03/01/21 07:25 36.8 C 86 14 138/83 94 02/28/21 23:33 36.9 C 89 17 126/77 94 Exam (Neuro) Physical Exam: She is awake and alert. Speech is without aphasia or dysarthria. Mood is normal and affect is appropriate. Her thought processes are reasonable for conversation. Extraocular eye muscles are intact without nystagmus. She moved her head side t o side while lying in bed without nystagmus either. She cannot sit up on her own because of back pain and left hip pain. She feels that her stomach is "weak". Limb strength is 5/5 both proximally distally in all 4 limbs although there is giveaway weakness in the left lower extremity secondary to hip pain. There are no abnormal involuntary movements and there no tremor or ataxia , with [id number] testing. PG Care Time/CCT Total # of Minutes Spent Total Time Spent with Patient: Total time spent is greater than 50% in coordination of care (as documented) at patient's floor/unit and/or counseling patient: Coding Level of Care Code 96118 Subseq Hosp Care Lvl 3 Diagnoses Vertigo R42 Meningioma D32.9 Stroke I63.9 Pelvic fracture S32.9XXA Encounter type: initial encounter Pelvic bone location: unspecified part of pelvis Fracture type: closed Fracture alignment: nondisplaced Elevated creatine kinase R74.8 Time Spent (min) 40 (1) Pelvic fracture Encounter type: initial encounter Pelvic bone location: unspecified part of pelvis Fracture type: closed Fracture alignment: nondisplaced Qualified Code(s): S32.9XXA - Fracture of unspecified parts of lumbosacral spine and pelvis, initial encounter for closed fracture
[2021-03-01] MEDS: oxyCODONE HCL 10 MG TABCR (OxyCONTIN) PO SCH (08:44)
[2021-03-01] MEDS: ENOXAPARIN INJ 40 MG/0.4 ML SYR SQ SCH (08:44)
[2021-03-01] MEDS: DOCUSATE SODIUM 100 MG CAP PO SCH ×2 (08:45→20:58)
[2021-03-01] MEDS: MULTIVITAMIN TAB PO SCH (08:45)
[2021-03-01] MEDS: ASPIRIN 81 MG ECTAB PO SCH (08:45)
[2021-03-01] MEDS: lisinopril 20 MG TAB PO SCH (08:45)
[2021-03-01] MEDS: CHOLECALCIFEROL 1,000 UNITS 25 MCG TAB PO SCH (08:45)
[2021-03-01] MEDS: PANTOprazole 40 MG TAB PO SCH (08:45)
--- NOTE | 2021-03-01 08:59 | Orthopedic Progress Note ---
Date of Service March 01, 2021 Assessment & Plan (1) Pelvic fracture: She may be out of bed - WBAT LLE Use of walker when out of bed Ice to left hip as needed for pain/swelling Plan to treat conservatively Allowed for hip ROM and activities as tolerated Follow up with Dr. Choudhury in 2 weeks for re-evaluation and check up. Dr. Choudhury aware of today's findings. Admission and Anticipated Discharge Date Admission Date: February 26, 2021 Subjective Having some pain in left hip area today. She states that the "muscle spasms are terrible". She states that she has pain at rest and with movement. Although worse with movement. States that she's having some burning left anterior thight today. Physical Exam Physical Exam: Left hip painful to touch on outer left hip/pelvis. Tolerates log rolling of left leg; although does stimulate a muscle spasm in her outer left hip/buttock. Nontender with palpation left thigh, knee, calf or ankle. Full ankle ROM and strength 5/5. Distal pulses 1+. distal sensation is normal. Sensation normal throughout thigh and knee. Unable to do SLR today due to acute muscle spasms. No calf tenderness, calf is supple. Skin healthy. No visible ecchymosis. Results & Data ([facility]) Vital Signs (Past 12 Hours) Vital Signs Temp Pulse Pulse Resp BP Pulse Ox 03/01/21 07:25 36.8 C 86 14 138/83 94 02/28/21 23:33 36.9 C 89 17 126/77 94 (1) Pelvic fracture Encounter type: initial encounter Pelvic bone location: unspecified part of pelvis Fracture type: closed Fracture alignment: nondisplaced Qualified Code(s): S32.9XXA - Fracture of unspecified parts of lumbosacral spine and pelvis, initial encounter for closed fracture
--- NOTE | 2021-03-01 09:43 | Hospitalist Progress Note ---
Date of Service March 01, 2021 Assessment & Plan (1) Constipation: * MiraLAX ordered daily as needed, did have results of stool 02/28 * add colace to be given bid d/t opiate therapy on board (2) Pelvic fracture: * nonsurgical fracture. Consult orthopedics. Appreciate recommendations. * pain uncontrolled. continue oxyIR (will increased to 1 tab for pain 1-5, 2 tabs for pain 6-10). In addition, will add Long acting Oxycodone for added pain control * Patient lives alone. Suspect will need placement for inpatient rehabilitation. PT/OT on boardappreciate recommendations. Case management on board. (3) Fall: * Secondary to chronic vertigo. * etiology of vertigo uncertain at this time. * Would advise outpatient ENT work-up for vestibular function testing. * She does have tinnitus and decreased hearing. * ? Mnire's. * No evidence of Vertebrobasilar infarct. ASA/Lipitor added (neuro recommends continuation of these and possible small cva that is not acute is result of small vessel disease), Neurology recommends follow up in 4 weeks with them. * Echo ordered and pending. (4) Elevated creatine kinase: * From laying on the floor X 24 hours- Resolved (5) Abnormal chest CT: * As recommended by radiology, will need a 3 to 4-month follow-up CT. * May simply be atelectasis from being down for 24 hours. * on incentive spirometry. * Currently, patient is afebrile without leukocytosis. * No clinical evidence to suggest pneumonia. * Will monitor symptoms (6) Vertigo: * Continue meclizine as needed. Symptoms currently controlled. Can initiate low-dose diazepam as recommended by neuro if meclizine no longer effective. * recommend ENT referral as an outpatient for vestibular function testing (7) Meningioma: * Follows with neurosurgery at [facility] (8) HTN (hypertension), benign: * Stable/controlled * continue home lisinopril 20 mg daily (9) DVT prophylaxis: * Lovenox 40 mg SQ once daily Admission and Anticipated Discharge Date Admission Date: February 26, 2021 Subjective pt has pain with transition of movements left side of pelvis worsened that right, it improved after continue movement and also improved after resting Review of Systems Review of Systems: Mild to moderate distress and fatigue no headache, no visual changes no speech or swallowing issues no chest pain, pressure or palpitations no shortness of breath, cough or wheezes no abdominal pain, nausea or vomiting, diarrhea or constipation no dysuria, hematuria or frequency left sided hip pain some radiation to left anterior thigh no back pain, CVA tenderness or radicular pain no bruising, bleeding or rashes no focal signs of weakness or numbness or altered sensation no complaints of anxiety or depression.. Physical Exam Physical Exam: The patient appeared well nourished and normally developed. Vital signs as documented. Head exam is normocephalic atraumatic Neck is without JVD, thyromegaly, or carotid bruits. Lungs are clear to auscultation, no focal loss of breath sounds Cardiac exam, Rhythm is regular.. No murmurs, rubs or gallops. Abdominal exam reveals normal bowel sounds, soft non tender, no masses Extremities are nonedematous and both pedal pulses are present Neurologic exam is alert and oriented, no focal loss of strength or sensation Skin is without bruises or rashes Psychologically is without concerns for anxiety or depression Results & Data Results & Data ([facility]) Vital Signs (Past 12 Hours) Vital Signs Temp Pulse Pulse Resp BP Pulse Ox 03/01/21 07:25 98.2 F 86 14 138/83 94 02/28/21 23:33 98.4 F 89 17 126/77 94 PG Care Time/CCT Total # of Minutes Spent Total Time Spent with Patient: Total time spent is greater than 50% in coordination of care (as documented) at patient's floor/unit and/or counseling patient: Coding Level of Care Code 66680 Subseq Hosp Care Lvl 2 Diagnoses Constipation K59.00 Constipation type: unspecified constipation type Pelvic fracture S32.9XXA Encounter type: initial encounter Fracture alignment: nondisplaced Fracture type: closed Pelvic bone location: unspecified part of pelvis Fall W19.XXXA Encounter type: initial encounter Elevated creatine kinase R74.[address] R93.89 Vertigo R42 Meningioma D32.9 HTN (hypertension), benign I10 DVT prophylaxis Z29.9 (1) Constipation Constipation type: unspecified constipation type Qualified Code(s): K59.00 - Constipation, unspecified (2) Fall Encounter type: initial encounter Qualified Code(s): W19.XXXA - Unspecified fall, initial encounter (3) Pelvic fracture Encounter type: initial encounter Fracture alignment: nondisplaced Fracture type: closed Pelvic bone location: unspecified part of pelvis Qualified Code(s): S32.9XXA - Fracture of unspecified parts of lumbosacral spine and pelvis, initial encounter for closed fracture
--- NOTE | 2021-03-01 14:26 | Hospitalist Progress Note ---
Date of Service March 01, 2021 Assessment & Plan (1) Pelvic fracture: Mrs. Elias is a 81 year old female with a history of Hypertension, Meningioma, Osteoarthritis, Hiatal Hernia, and Vertigo who sustained a Fall with resultant Pelvic Fracture (comminuted and slightly displaced fracture of the long peripheral portion of the left iliac wing). Her pain is gradually improving but she needs to be able to walk in order to care for herself at home. 1. Continue PT. Begin walking as tolerated. 2. Celebrex 100 mg daily. 3. Opiate analgesics/muscle relaxant as needed. 4. Ongoing DVT prophylaxis with Lovenox. (2) HTN (hypertension), benign: -- Continue Lisinopril 20 mg daily. (3) DVT prophylaxis: -- Ongoing DVT prophylaxis with Lovenox. -- Compression stockings. 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 -- Continue Meclizine as needed. (5) Elevated creatine kinase: -- Secondary to lying on the floor > 24 hours. -- CK has normalized. Admission and Anticipated Discharge Date Admission Date: February 26, 2021 Subjective Mrs. Elias is a 81 year old female with a history of Hypertension, Meningioma, Osteoarthritis, Hiatal Hernia, and Vertigo who sustained a Fall with resultant Pelvic Fracture (comminuted and slightly displaced fracture of the long peripheral portion of the left iliac wing). She is being seen in room 386-2. Patient has been participating in physical therapy on a daily basis. She is sitting in a bedside chair. She still has left hip pain and muscle spasms, but is otherwise doing well. Pain is gradually improving. She is able to transfer from bed to chair. She has not done much walking. Review of Systems Review of Systems: All systems reviewed & are unremarkable except as noted in Subjective Physical Exam Physical Exam: GENERAL: Patient in no acute distress, sitting in a bedside chair. HEENT: Head is atraumatic, normocephalic. EOM's intact. Facies symmetric. No perioral cyanosis. NECK: No JVD. JVP is at the level of the clavicle sitting upright. Carotid upstrokes are + 2 bilaterally. CHEST/LUNGS: Clear to auscultation throughout all lung carr. No wheezes, rales, or crackles. CVS: S1 and S2 are regular without obvious murmurs, gallops, or rubs. PMI is nondisplaced. No lifts, heaves, or thrills. No abdominal aortic or renal bruits. ABDOMINAL EXAM: Bowel sounds are present. No masses, organomegaly, or tenderness. EXTREMITIES: No clubbing or cyanosis. No edema. Intact radial pulses bilaterally. NEUROLOGIC EXAM: Patient is awake, alert, and oriented. Pleasant and cooperative. Answers questions appropriately. Speech is clear. Gait pattern was not assessed. Results & Data Results & Data ([facility]) Vital Signs (Past 12 Hours) Vital Signs Temp Pulse Resp BP Pulse Ox 03/01/21 07:25 36.8 C 86 14 138/83 94 Medications Administered Medications glucosamine-chondroitin [Osteo Bi-Flex] 1 tab PO QAM #0 08/09/16 [History Confirmed 02/26/21] acyclovir 5 % topical ointment 1 appln TOP 6XD 10/15/19 [History Confirmed 02/26/21] cyclosporine 0.05 % eye drops 1 drops OP Q12H 10/15/19 [History Confirmed 02/26/21] lisinopril 20 mg tablet 20 mg PO QAM tab 10/15/19 [History Confirmed 02/26/21] meclizine 25 mg tablet 25 mg PO TID PRN 10/15/19 [History Confirmed 02/26/21] multivitamin 1 tab PO QAM 10/15/19 [History Confirmed 02/26/21] cholecalciferol (vitamin D3) 25 mcg (1,000 unit) capsule 1,000 units PO QAM 10/17/19 [History Confirmed 02/26/21] Home Medications Acetaminophen (Acetaminophen 500 Mg Tab) 1,000 mg PO TID SORAYA Stop: 03/31/21 14:29 Aspirin (Aspirin 81 Mg Ectab) 81 mg PO QAM SORAYA Stop: 03/30/21 08:59 Last Admin: 03/01/21 08:45 Dose: 81 mg Documented by: Atorvastatin Calcium (Atorvastatin 40 Mg Tab) 40 mg PO HS SORAYA Stop: 03/29/21 20:59 Last Admin: 02/28/21 20:46 Dose: 40 mg Documented by: Celecoxib (Celecoxib 100 Mg Cap) 100 mg PO DAILY SORAYA Stop: 03/31/21 14:29 Cyclobenzaprine HCl (Cyclobenzaprine Hcl 10 Mg Tab) 10 mg PO TID PRN PRN Reason: spasm Stop: 03/29/21 13:59 Docusate Sodium (Docusate Sodium 100 Mg Cap) 100 mg PO BID [facility] Stop: 03/28/21 21:41 Last Admin: 03/01/21 08:45 Dose: 100 mg Documented by: Enoxaparin Sodium (Enoxaparin Inj 40 Mg/0.4 Ml Syr) 40 mg SQ Q24H [facility] Stop: 03/29/21 08:59 Last Admin: 03/01/21 08:44 Dose: 40 mg Documented by: Hydromorphone HCl (Hydromorphone Inj 0.5 Mg/0.5 Ml Syr) 0.5 mg IV Q4 PRN PRN Reason: use for breakthrough pain Stop: 03/12/21 21:41 Last Admin: 02/28/21 11:29 Dose: 0.5 mg Documented by: Ketorolac Tromethamine (Ketorolac Tromethamine 15 Mg/Ml Vial) 15 mg IV Q6H PRN PRN Reason: Pain Lisinopril (L[facility]opril 20 Mg Tab) [facility] [place] Stop: 03/29/21 08:59 Last Admin: 03/01/21 08:45 Dose: 20 mg Documented by: Magnesium Hydroxide (Magnesium Hydroxide Susp 30 Ml Udc) 30 ml PO Q6H PRN PRN Reason: Constipation Stop: 03/28/21 21:41 Meclizine HCl (Meclizine Hcl 25 Mg Tab) 25 mg PO TID PRN PRN Reason: Dizziness Stop: 03/29/21 00:57 Miscellaneous (Restasis - Order Awaiting Action) 1 ea N/A QS [facility] Stop: 03/29/21 07:59 Last Admin: 03/01/21 07:41 Dose: Not Given Documented by: Multivitamins (Multivitamin Tab) 1 tab PO QAM [facility] Stop: 03/29/21 08:59 Last Admin: 03/01/21 08:45 Dose: 1 tab Documented by: Ondansetron HCl (Ondansetron Inj 2 Mg/Ml 2 Ml Vial) 4 mg IV Q6H PRN PRN Reason: Nausea Stop: 03/28/21 21:41 Oxycodone HCl (Oxycodone Hcl Ir 5 Mg Tab (Immediate Release)) 5 mg PO Q6H PRN PRN Reason: Pain 1-5 Stop: 03/12/21 21:41 Oxycodone HCl (Oxycodone Hcl Ir 5 Mg Tab (Immediate Release)) 10 mg PO Q6H PRN PRN Reason: Pain 6-10 Stop: 03/14/21 10:59 Pantoprazole Sodium (Pantoprazole 40 Mg Tab) 40 mg PO QAM [facility] Stop: 03/29/21 08:59 Last Admin: 03/01/21 08:45 Dose: 40 mg Documented by: Polyethylene Glycol (Polyethylene (Miralax) 17 Gm Pack) 17 gm PO DAILY PRN PRN Reason: Constipation Stop: 03/29/21 15:17 Sodium Biphosphate/Sodium Phosphate (Sod Phosphate/Sod Biphosphate Enema 132 Ml Btl) 132 ml [place] Q1H PRN PRN Reason: Constipation Vitamin D (Cholecalciferol 1,000 Units 25 Mcg Tab) 1,[facility] [place] Stop: 03/29/21 08:59 Last Admin: 03/01/21 08:45 Dose: 1,000 units Documented by: PG Care Time/CCT Total # of Minutes Spent Total Time Spent with Patient: Total time spent is greater than 50% in coordination of care (as documented) at patient's floor/unit and/or counseling patient:25 Coding Level of Care Code 08396 Subseq Hosp Care Lvl 3 Diagnoses Pelvic fracture S32.9XXA Encounter type: initial encounter Fracture alignment: nondisplaced Fracture type: closed Pelvic bone location: unspecified part of pelvis HTN (hypertension), benign I10 DVT prophylaxis Z29.9 Vertigo R42 Elevated creatine kinase R74.8 Time Spent (min) 40 (1) Pelvic fracture Encounter type: initial encounter Fracture alignment: nondisplaced Fracture type: closed Pelvic bone location: unspecified part of pelvis Qualified Code(s ): S32.9XXA - Fracture of unspecified parts of lumbosacral spine and pelvis, initial encounter for closed fracture
[2021-03-01] MEDS: ACETAMINOPHEN 500 MG TAB PO SCH ×2 (14:42→20:57)
[2021-03-01] MEDS: CELECOXIB 100 MG CAP PO SCH (14:42)
[2021-03-01] MEDS: ATORVASTATIN 40 MG TAB PO SCH (20:58)
[2021-03-01] MEDS: oxyCODONE HCL IR 5 MG TAB (IMMEDIATE RELEASE) PO PRN (20:59)
[2021-03-02] MEDS: RESTASIS - ORDER AWAITING ACTION SCH ×4 (01:03→22:40)
[2021-03-02] MEDS: MULTIVITAMIN TAB PO SCH (08:36)
[2021-03-02] MEDS: ENOXAPARIN INJ 40 MG/0.4 ML SYR SQ SCH (08:36)
[2021-03-02] MEDS: lisinopril 20 MG TAB PO SCH (08:36)
[2021-03-02] MEDS: PANTOprazole 40 MG TAB PO SCH (08:36)
[2021-03-02] MEDS: ACETAMINOPHEN 500 MG TAB PO SCH ×3 (08:37→20:25)
[2021-03-02] MEDS: ASPIRIN 81 MG ECTAB PO SCH (08:37)
[2021-03-02] MEDS: CELECOXIB 100 MG CAP PO SCH (08:37)
[2021-03-02] MEDS: DOCUSATE SODIUM 100 MG CAP PO SCH ×2 (08:37→20:24)
[2021-03-02] MEDS: CHOLECALCIFEROL 1,000 UNITS 25 MCG TAB PO SCH (08:37)
--- NOTE | 2021-03-02 11:40 | Progress Notes ---
DATE OF SERVICE: 03/02/2021 Annemarie is improved. She is out of bed, sitting in chair. She is able to move her leg back and forth and wiggle her toes, ankle as well. Pain with transferring on the iliac crest area. She is on a blo od thinner. She will need to follow up with us in about 7-10 days for x-ray check. She can weight b ear as tolerated and will be sent to [facility] or snf facility. Check vitamin D level. She may weightbear as tolerated. Job ID: [id number]
--- NOTE | 2021-03-02 12:00 | Hospitalist Progress Note ---
Date of Service March 02, 2021 Assessment & Plan (1) Pelvic fracture: Mrs. Elias is a 81 year old female with a history of Hypertension, Meningioma, Osteoarthritis, Hiatal Hernia, and Vertigo who sustained a Fall with resultant comminuted and slightly displaced fracture of the long peripheral portion of the left iliac wing. Her pain is gradually improving but she needs to be able to walk and be more independent in order to care for herself at home. Patient must also be able to walk in order to go to [facility]. 1. Continue PT. Increase walking as tolerated. 2. Celebrex 100 mg daily. 3. Opiate analgesics/muscle relaxant as needed. 4. Ongoing DVT prophylaxis with Lovenox. (2) HTN (hypertension), benign: Blood pressures have been controlled. -- Continue Lisinopril 20 mg daily. (3) DVT prophylaxis: -- Ongoing DVT prophylaxis with Lovenox. -- Compression stockings. 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 -- Continue Meclizine as needed. -- Meclizine has definitely helped with her vertigo. (5) Elevated creatine kinase: -- Secondary to lying on the floor > 24 hours. -- CK has normalized. -- Renal function stable. Admission and Anticipated Discharge Date Admission Date: February 26, 2021 Supervising Physician Co-Signing Physician Notes Attending Attestation - Chart reviewed in detail, care plan d/w MIKAL Bonner. I agree w/ the brown components of his documentation. Left pelvic fracture - continue efforts at improved pain control. Other medical problems stable. Rhabdo resolved. Waqas Olivier MD Subjective Mrs. Elias is a 81 year old female with a history of Hypertension, Meningioma, Osteoarthritis, Hiatal Hernia, and Vertigo who sustained a Fall with resultant comminuted and slightly displaced fracture of the long peripheral portion of the left iliac wing. Patient is doing reasonably well, her pain and muscle spasms have improved. Patient was able to take 2 steps with physical therapy today and is improving with her transfers. She is sitting in a bedside chair. Physical Exam Physical Exam: GENERAL: Patient in no acute distress, sitting in a bedside chair. HEENT: Head is atraumatic, normocephalic. EOM's intact. Facies symmetric. No perioral cyanosis. NECK: No JVD. JVP is at the level of the clavicle sitting upright. Carotid upstrokes are + 2 bilaterally. CHEST/LUNGS: Clear to auscultation throughout all lung carr. No wheezes, rales, or crackles. CVS: S1 and S2 are regular without obvious murmurs, gallops, or rubs. PMI is nondisplaced. No lifts, heaves, or thrills. No abdominal aortic or renal bruits. ABDOMINAL EXAM: Bowel sounds are present. No masses, organomegaly, or tenderness. EXTREMITIES: No clubbing or cyanosis. No edema. Intact radial pulses bilaterally. Calves are soft/non-tender. NEUROLOGIC EXAM: Patient is awake, alert, and oriented. Pleasant and cooperative. Answers questions appropriately. Speech is clear. Gait pattern was not assessed. MUSCULOSKELETAL EXAM: Left hip, iliac plasterer tender to palpation. Results & Data Results & Data ([facility]) Vital Signs (Past 12 Hours) Vital Signs Temp Pulse Resp BP Pulse Ox 03/02/21 08:06 36.6 C 80 18 127/72 98 Laboratory Results Laboratory Results - last 24 hr 03/02/21 11:37 25-OH Vitamin D Total Pending Medications Administered Medications glucosamine-chondroitin [Osteo Bi-Flex] 1 tab PO QAM #0 08/09/16 [History Confirmed 02/26/21] acyclovir 5 % topical ointment 1 appln TOP 6XD 10/15/19 [History Confirmed 02/26/21] cyclosporine 0.05 % eye drops 1 drops OP Q12H 10/15/19 [History Confirmed 02/26/21] lisinopril 20 mg tablet 20 mg PO QAM tab 10/15/19 [History Confirmed 02/26/21] meclizine 25 mg tablet 25 mg PO TID PRN 10/15/19 [History Confirmed 02/26/21] multivitamin 1 tab PO QAM 10/15/19 [History Confirmed 02/26/21] cholecalciferol (vitamin D3) 25 mcg (1,000 unit) capsule 1,000 units PO QAM 10/17/19 [History Confirmed 02/26/21] Home Medications Acetaminophen (Acetaminophen 500 Mg Tab) 1,000 mg PO TID [facility] Stop: 03/31/21 14:29 Last Admin: 03/02/21 08:37 Dose: 1,000 mg Documented by: Aspirin (Aspirin 81 Mg Ectab) 81 mg PO QAM [facility] Stop: 03/30/21 08:59 Last Admin: 03/02/21 08:37 Dose: 81 mg Documented by: Atorvastatin Calcium (Atorvastatin 40 Mg Tab) 40 mg PO HS [facility] Stop: 03/29/21 20:59 Last Admin: 03/01/21 20:58 Dose: 40 mg Documented by: Celecoxib (Celecoxib 100 Mg Cap) 100 mg PO DAILY [facility] Stop: 03/31/21 14:29 Last Admin: 03/02/21 08:37 Dose: 100 mg Documented by: Cyclobenzaprine HCl (Cyclobenzaprine Hcl 10 Mg Tab) 10 mg PO TID PRN PRN Reason: spasm Stop: 03/29/21 13:59 Docusate Sodium (Docusate Sodium 100 Mg Cap) 100 mg PO BID [facility] Stop: 03/28/21 21:41 Last Admin: 03/02/21 08:37 Dose: 100 mg Documented by: Enoxaparin Sodium (Enoxaparin Inj 40 Mg/0.4 Ml Syr) 40 mg SQ Q24H [facility] Stop: 03/29/21 08:59 Last Admin: 03/02/21 08:36 Dose: 40 mg Documented by: Hydromorphone HCl (Hydromorphone Inj 0.5 Mg/0.5 Ml Syr) 0.5 mg IV Q4 PRN PRN Reason: use for breakthrough pain Stop: 03/12/21 21:41 Last Admin: 02/28/21 11:29 Dose: 0.5 mg Documented by: Ketorolac Tromethamine (Ketorolac Tromethamine 15 Mg/Ml Vial) 15 mg IV Q6H PRN PRN Reason: Pain Lisinopril (Lisinopril 20 Mg Tab) 20 mg PO QAM [facility] Stop: 03/29/21 08:59 Last Admin: 03/02/21 08:36 Dose: 20 mg Documented by: Magnesium Hydroxide (Magnesium Hydroxide Susp 30 Ml Udc) 30 ml PO Q6H PRN PRN Reason: Constipation Stop: 03/28/21 21:41 Meclizine HCl (Meclizine Hcl 25 Mg Tab) 25 mg PO TID PRN PRN Reason: Dizziness Stop: 03/29/21 00:57 Miscellaneous (Restasis - Order Awaiting Action) 1 ea N/A QS [facility] Stop: 03/29/21 07:59 Last Admin: 03/02/21 08:35 Dose: Not Given Documented by: Multivitamins (Multivitamin Tab) 1 tab PO [facility] Stop: 03/29/21 08:59 Last Admin: 03/02/21 08:36 Dose: 1 tab Documented by: Ondansetron HCl (Ondansetron Inj 2 Mg/Ml 2 Ml Vial) 4 mg IV Q6H PRN PRN Reason: Nausea Stop: 03/28/21 21:41 Oxycodone HCl (Oxycodone Hcl Ir 5 Mg Tab (Immediate Release)) 5 mg PO Q6H PRN PRN Reason: Pain 1-5 Stop: 03/12/21 21:41 Last Admin: 03/01/21 20:59 Dose: 5 mg Documented by: Oxycodone HCl (Oxycodone Hcl Ir 5 Mg Tab (Immediate Release)) 10 mg PO Q6H PRN PRN Reason: Pain 6-10 Stop: 03/14/21 10:59 Pantoprazole Sodium (Pantoprazole 40 Mg Tab) 40 mg PO [facility] Stop: 03/29/21 08:59 Last Admin: 03/02/21 08:36 Dose: 40 mg Documented by: Polyethylene Glycol (Polyethylene (Miralax) 17 Gm Pack) 17 gm PO DAILY PRN PRN Reason: Constipation Stop: 03/29/21 15:17 Sodium Biphosphate/Sodium Phosphate (Sod Phosphate/Sod Biphosphate Enema 132 Ml Btl) 132 ml SD Q1H PRN PRN Reason: Constipation Vitamin D (Cholecalciferol 1,000 Units 25 Mcg Tab) 1,000 units PO [facility] Stop: 03/29/21 08:59 Last Admin: 03/02/21 08:37 Dose: 1,000 units Documented by: PG Care Time/CCT Total # of Minutes Spent Total Time Spent with Patient: Total time spent is greater than 50% in coordination of care (as documented) at patient's floor/unit and/or counseling patient:25 Coding Level of Care Code 59665 Subseq Hosp Care Lvl 3 Diagnoses Pelvic fracture S32.9XXA Encounter type: initial encounter Fracture alignment: nondisplaced Fracture type: closed Pelvic bone location: unspecified part of pelvis HTN (hypertension), benign I10 DVT prophylaxis Z29.9 Vertigo R42 Elevated creatine kinase R74.8 Time Spent (min) 35 (1) Pelvic fracture Encounter type: initial encounter Fracture alignment: nondisplaced Fracture type: closed Pelvic bone location: unspecified part of pelvis Qualified Code(s): S32.9XXA - Fracture of unspecified parts of lumbosacral spine and pelvis, initial encounter for closed fracture
[2021-03-02] MEDS: ATORVASTATIN 40 MG TAB PO SCH (20:24)
[2021-03-02] MEDS: oxyCODONE HCL IR 5 MG TAB (IMMEDIATE RELEASE) PO PRN (20:29)
[2021-03-03] MEDS: ACETAMINOPHEN 500 MG TAB PO SCH ×3 (08:30→20:48)
[2021-03-03] MEDS: DOCUSATE SODIUM 100 MG CAP PO SCH ×2 (08:30→20:48)
[2021-03-03] MEDS: lisinopril 20 MG TAB PO SCH (08:30)
[2021-03-03] MEDS: PANTOprazole 40 MG TAB PO SCH (08:31)
[2021-03-03] MEDS: MULTIVITAMIN TAB PO SCH (08:31)
[2021-03-03] MEDS: CELECOXIB 100 MG CAP PO SCH (08:31)
[2021-03-03] MEDS: ASPIRIN 81 MG ECTAB PO SCH (08:31)
[2021-03-03] MEDS: ENOXAPARIN INJ 40 MG/0.4 ML SYR SQ SCH (08:31)
[2021-03-03] MEDS: CHOLECALCIFEROL 1,000 UNITS 25 MCG TAB PO SCH (08:31)
[2021-03-03] MEDS: oxyCODONE HCL IR 5 MG TAB (IMMEDIATE RELEASE) PO PRN ×2 (08:38→20:49)
[2021-03-03] MEDS: POLYETHYLENE (MIRALAX) 17 GM PACK PO PRN (08:39)
[2021-03-03] MEDS: RESTASIS - ORDER AWAITING ACTION SCH ×3 (09:04→22:38)
[2021-03-03] MEDS: MECLIZINE HCL 25 MG TAB PO SCH ×3 (09:04→20:48)
--- NOTE | 2021-03-03 09:08 | Hospitalist Progress Note ---
Date of Service March 03, 2021 Assessment & Plan (1) Pelvic fracture: Mrs. Elias is a 81 year old female with a history of Hypertension, Meningioma, Osteoarthritis, Hiatal Hernia, and Vertigo who sustained a Fall with resultant comminuted and slightly displaced fracture of the long peripheral portion of the left iliac wing. Patient complains of increased left hip pain and spasms today, changing positions in her chair seems to exacerbate these muscle spasms. She just received pain medication and a muscle relaxant. PT has not been in to see the patient yet this morning. She needs to be able to walk in order to go to [facility]. 1. Continue Physical Therapy. Increase walking as tolerated. 2. Celebrex 100 mg daily. 3. Opiate analgesics/muscle relaxant as needed. 4. Ongoing DVT prophylaxis with Lovenox. 5. Transfer to [facility] when she qualifies. (2) HTN (hypertension), benign: Blood pressures remains controlled. -- Continue Lisinopril 20 mg daily. (3) DVT prophylaxis: -- Ongoing DVT prophylaxis with Lovenox. -- Compression stockings. 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 -- Change Meclizine to 25 mg every 8 hours on a scheduled basis. (5) Elevated creatine kinase: -- Secondary to lying on the floor > 24 hours. -- CK has normalized. -- Renal function stable. (6) Vitamin D deficiency: -- Her Vitamin D level is low at 23.8. -- Increase Cholecalciferol to 50 mcg daily (2000 units). Admission and Anticipated Discharge Date Admission Date: February 26, 2021 Supervising Physician Co-Signing Physician Notes Attending Attestation - Chart reviewed in detail, care plan d/w MIKAL Bonner. I agree w/ the brown components of his documentation. Left pelvic fracture - given the severity of her pain at times, especially w/ any movement, consider a longer acting pain med for basal control. Replace low vit D - agree w/ increase in supplement. Other medical problems stable. Rhabdo resolved. Vitals remain stable. Waqas Olivier MD Subjective Mrs Elias complains of increased left hip pain and spasms today, changing positions in her chair seems to exacerbate these muscle spasms. She just received pain medication and a muscle relaxant. PT has not been in to see the patient yet this morning. She needs to be able to walk in order to go to [facility]. Review of Systems Review of Systems: All systems reviewed & are unremarkable except as noted in Subjective Physical Exam Physical Exam: GENERAL: Patient in no acute distress, sitting in a bedside chair. HEENT: Head is atraumatic, normocephalic. EOM's intact. Facies symmetric. No perioral cyanosis. NECK: No JVD. JVP is not elevated. CHEST/LUNGS: Clear to auscultation throughout all lung carr. No wheezes, rales, or crackles. CVS: S1 and S2 are regular without obvious murmurs, gallops, or rubs. PMI is nondisplaced. ABDOMINAL EXAM: Bowel sounds are present. No masses, organomegaly, or tenderness. EXTREMITIES: No clubbing or cyanosis. No edema. Intact radial pulses bilaterally. Calves are soft/non-tender. NEUROLOGIC EXAM: Patient is awake, alert, and oriented. Pleasant and cooperative. Answers questions appropriately. Speech is clear. Gait pattern was not assessed. MUSCULOSKELETAL EXAM: Left hip, iliac waste machine tender to palpation. Results & Data Results & Data ([facility]) Vital Signs (Past 12 Hours) Vital Signs Temp Pulse Resp BP Pulse Ox 03/03/21 07:22 36.5 C 85 18 120/81 96 03/02/21 21:52 36.3 C L 93 H 18 115/69 92 Laboratory Results Laboratory Results - last 24 hr 03/02/21 11:37 25-OH Vitamin D Total 23.8 L Medications Administered Medications glucosamine-chondroitin [Osteo Bi-Flex] 1 tab PO QAM #0 08/09/16 [History Confirmed 02/26/21] acyclovir 5 % topical ointment 1 appln TOP 6XD 10/15/19 [History Confirmed 02/26/21] cyclosporine 0.05 % eye drops 1 drops OP Q12H 10/15/19 [History Confirmed 02/26/21] lisinopril 20 mg tablet 20 mg PO QAM tab 10/15/19 [History Confirmed 02/26/21] meclizine 25 mg tablet 25 mg PO TID PRN 10/15/19 [History Confirmed 02/26/21] multivitamin 1 tab PO QAM 10/15/19 [History Confirmed 02/26/21] cholecalciferol (vitamin D3) 25 mcg (1,000 unit) capsule 1,000 units PO QA 10/17/19 [History Confirmed 02/26/21] Home Medications Acetaminophen (Acetaminophen 500 Mg Tab) 1,000 mg PO TID [facility] Stop: 03/31/21 14:29 Last Admin: 03/03/21 08:30 Dose: 1,000 mg Documented by: Aspirin (Aspirin 81 Mg Ectab) 81 mg PO QAM [facility] Stop: 03/30/21 08:59 Last Admin: 03/03/21 08:31 Dose: 81 mg Documented by: Atorvastatin Calcium (Atorvastatin 40 Mg Tab) 40 mg PO HS [facility] Stop: 03/29/21 20:59 Last Admin: 03/02/21 20:24 Dose: 40 mg Documented by: Celecoxib (Celecoxib 100 Mg Cap) 100 mg PO DAILY [facility] Stop: 03/31/21 14:29 Last Admin: 03/03/21 08:31 Dose: 100 mg Documented by: Cyclobenzaprine HCl (Cyclobenzaprine Hcl 10 Mg Tab) 10 mg PO TID PRN PRN Reason: spasm Stop: 03/29/21 13:59 Docusate Sodium (Docusate Sodium 100 Mg Cap) 100 mg PO BID [facility] Stop: 03/28/21 21:41 Last Admin: 03/03/21 08:30 Dose: 100 mg Documented by: Enoxaparin Sodium (Enoxaparin Inj 40 Mg/0.4 Ml Syr) 40 mg SQ Q24H [facility] Stop: 03/29/21 08:59 Last Admin: 03/03/21 08:31 Dose: 40 mg Documented by: Hydromorphone HCl (Hydromorphone Inj 0.5 Mg/0.5 Ml Syr) 0.5 mg IV Q4 PRN PRN Reason: use for breakthrough pain Stop: 03/12/21 21:41 Last Admin: 02/28/21 11:29 Dose: 0.5 mg Documented by: Ketorolac Tromethamine (Ketorolac Tromethamine 15 Mg/Ml Vial) 15 mg IV Q6H PRN PRN Reason: Pain Lisinopril (Lisinopril 20 Mg Tab) 20 mg PO QAM [facility] Stop: 03/29/21 08:59 Last Admin: 03/03/21 08:30 Dose: 20 mg Documented by: Magnesium Hydroxide (Magnesium Hydroxide Susp 30 Ml Udc) 30 ml PO Q6H PRN PRN Reason: Constipation Stop: 03/28/21 21:41 Meclizine HCl (Meclizine Hcl 25 Mg Tab) 25 mg PO TID [facility] Stop: 04/02/21 08:59 Last Admin: 03/03/21 09:04 Dose: Not Given Documented by: Miscellaneous (Restasis - Order Awaiting Action) 1 ea N/A QS [facility] Stop: 03/29/21 07:59 Last Admin: 03/03/21 09:04 Dose: Not Given Documented by: [facility]ivitamins ([facility]ivitamin Tab) [facility] Stop: 03/29/21 08:59 Last Admin: 03/03/21 08:31 Dose: 1 tab Documented by: Ondansetron HCl (Ondansetron Inj 2 Mg/Ml 2 Ml Vial) 4 mg IV Q6H PRN PRN Reason: Nausea Stop: 03/28/21 21:41 Oxycodone HCl (Oxycodone Hcl Ir 5 Mg Tab (Immediate Release)) 5 mg PO Q6H PRN PRN Reason: Pain 1-5 Stop: 03/12/21 21:41 Last Admin: 03/03/21 08:38 Dose: 5 mg Documented by: Oxycodone HCl (Oxycodone Hcl Ir 5 Mg Tab (Immediate Release)) 10 mg PO Q6H PRN PRN Reason: Pain 6-10 Stop: 03/14/21 10:59 Pantoprazole Sodium (Pantoprazole 40 Mg Tab) 40 mg PO [facility] Stop: 03/29/21 08:59 Last Admin: 03/03/21 08:31 Dose: 40 mg Documented by: Polyethylene Glycol (Polyethylene (Miralax) 17 Gm Pack) 17 gm PO DAILY PRN PRN Reason: Constipation Stop: 03/29/21 15:17 Last Admin: 03/03/21 08:39 Dose: 17 gm Documented by: Sodium Biphosphate/Sodium Phosphate (Sod Phosphate/Sod Biphosphate Enema 132 Ml Btl) 132 ml IA Q1H PRN PRN Reason: Constipation Vitamin D (Cholecalciferol 1,000 Units 25 Mcg Tab) 1,000 units PO [facility] Stop: 03/29/21 08:59 Last Admin: 03/03/21 08:31 Dose: 1,000 units Documented by: PG Care Time/CCT Total # of Minutes Spent Total Time Spent with Patient: Total time spent is greater than 50% in coordination of care (as documented) at patient's floor/unit and/or counseling patient:25 Coding Level of Care Code 91563 Subseq Hosp Care Lvl 2 Diagnoses Pelvic fracture S32.9XXA Encounter type: initial encounter Fracture alignment: nondisplaced Fracture type: closed Pelvic bone location: unspecified part of pelvis HTN (hypertension), benign I10 DVT prophylaxis Z29.9 Vertigo R42 Elevated creatine kinase R74.8 Vitamin D deficiency E55.9 Time Spent (min) 35 (1) Pelvic fracture Encounter type: initial encounter Fracture alignment: nondisplaced Fracture type: closed Pelvic bone location: unspecified part of pelvis Qualified Code(s): S32.9XXA - Fracture of unspecified parts of lumbosacral spine and pelvis, initial encounter for closed fracture
--- NOTE | 2021-03-03 09:14 | Neurology Progress Note ---
Date of Service March 03, 2021 Assessment & Plan (1) Vertigo: (2) Meningioma: (3) Stroke: (4) Pelvic fracture: (5) Elevated creatine kinase: This patient had acute vertigo which has been improved since admission , although she still has some with head position change. The vertigo is posi tional and last a few seconds and is consistent with a benign paroxysmal positional vertigo ( inner ear abnormality ). MRI shows an 8 millimeter focus of increased signal in the left parietal white m atter most consistent with a small subacute stroke without clinical accompaniment. this is likely small-vessel ischemia. MRI also shows extensive old small vessel ischemic disease and a 14 millimeter left parietal meningioma which is likely unchanged compared to the previous study of 2019. She is followed in [place] by Dr. Siu. Patient had a fall with pelvic fracture and elevated CK. The CK as resolved. She has pain and has progressed to taking a few steps currently Recommendations: 1. Increase activity as able including physical and occupational therapy. Out of bed to chair as able as well. The patient is a rehab hospital candidate. 2. Continue 81 milligram aspirin tablet daily. 3. Continue atorvastatin 40 milligrams daily. 4. I see no need for additional neurologic testing at this time 5. convert meclizine to 25 milligrams 3 times a day regularly while in the hospital and she can take this as needed later. 6. follow-up Neuro Clinic in 3-4 weeks. Overall, I spent a total of 35 minutes with this case including review of records, direct evaluation the patient at bedside, and discussion of the case with the patient at bedside and Donovan Bonner PA-C, including differential diagnosis and treatment options. Admission and Anticipated Discharge Date Admission Date: February 26, 2021 Subjective patient has some positional vertiginous symptoms as before. She likes meclizine as this helps. She has no new pain or headache currently and has taken a few steps with physical therapy. She has a low vitamin D level at 23.8. She takes some amount of vitamin-D at home but she is uncertain of the dose. Blood pressure is 120/81. Results & Data ([facility]) Vital Signs (Past 12 Hours) Vital Signs Temp Pulse Resp BP Pulse Ox 03/03/21 07:22 36.5 C 85 18 120/81 96 06/29/21 21:52 36.3 C L 93 H 18 115/69 92 Exam (Neuro) Physical Exam: she is awake and alert. Speech is without aphasia or dysarthria. Mood is normal and affect is appropriate. Thought processes seem intact conversation. Coordination is in the arms. Strength seems symmetrical. Extraocular eye muscles are intact without nystagmus and there is no facial droop. PG Care Time/CCT Total # of Minutes Spent Total Time Spent with Patient: Total time spent is greater than 50% in coordination of care (as documented) at patient's floor/unit and/or counseling patient: Coding Level of Care Code 96303 Subseq Hosp Care Lvl 3 Diagnoses Vertigo R42 Meningioma D32.9 Stroke I63.9 Pelvic fracture S32.9XXA Encounter type: initial encounter Pelvic bone location: unspecified part of pelvis Fracture type: closed Fracture alignment: nondisplaced Elevated creatine kinase R74.8 Time Spent (min) 35 (1) Pelvic fracture Encounter type: initial encounter Pelvic bone location: unspecified part of pelvis Fracture type: closed Fracture alignment: nondisplaced Qualified Code(s): S32.9XXA - Fracture of unspecified parts of lumbosacral spine and pelvis, initial encounter for closed fracture
[2021-03-03] MEDS: ATORVASTATIN 40 MG TAB PO SCH (20:48)
[2021-03-04] MEDS: POLYETHYLENE (MIRALAX) 17 GM PACK PO PRN (08:14)
[2021-03-04] MEDS: CELECOXIB 100 MG CAP PO SCH (08:14)
[2021-03-04] MEDS: ENOXAPARIN INJ 40 MG/0.4 ML SYR SQ SCH (08:14)
[2021-03-04] MEDS: PANTOprazole 40 MG TAB PO SCH (08:15)
[2021-03-04] MEDS: MULTIVITAMIN TAB PO SCH (08:15)
[2021-03-04] MEDS: ASPIRIN 81 MG ECTAB PO SCH (08:15)
[2021-03-04] MEDS: lisinopril 20 MG TAB PO SCH (08:15)
[2021-03-04] MEDS: ACETAMINOPHEN 500 MG TAB PO SCH ×3 (08:15→20:09)
[2021-03-04] MEDS: CHOLECALCIFEROL 1,000 UNITS 25 MCG TAB PO SCH (08:15)
[2021-03-04] MEDS: DOCUSATE SODIUM 100 MG CAP PO SCH ×2 (08:16→20:09)
[2021-03-04] MEDS: MECLIZINE HCL 25 MG TAB PO SCH ×3 (08:16→20:09)
[2021-03-04] MEDS ORDERED: bisacodyL 10 MG SUPP PR STA (09:05)
--- NOTE | 2021-03-04 09:13 | Hospitalist Progress Note ---
Date of Service March 04, 2021 Assessment & Plan (1) Pelvic fracture: * nonsurgical fracture. Consult orthopedics. Appreciate recommendations. * pain uncontrolled. continue oxyIR (will increased to 1 tab for pain 1-5, 2 tabs for pain 6-10). * --> Transitioned to oxycontin 10mg for long acting relief Q12 hr as needed for long acting pain control * --> Continued constipation with pain medications. On bedside commode today, passing gas, non-tender, +BS. --> Ordering suppository and mag citrate. Continue bowel regimen at d/c to ensure prevention of constipation. Will also check TSH as she states this is a chronic issue * Patient lives alone. PT/OT with recs for rehab. Can go to [facility] likely tomorrow if bowels moving and pain continues to be controlled with long acting agents (2) Vitamin D deficiency: Vit D low 23.8 --> increased cholecalciferol to 50mcg daily (2,000IU) and consider bisphosphonate outpatient if patient tolerates (3) HTN (hypertension), benign: * Stable/controlled 122/79 * continue home lisinopril 20 mg daily (4) Vertigo: * Continue meclizine -> scheduled while inpatient and as needed at discharge * Symptoms currently controlled. * Patient also had 8mm focus of increased signal in L parietal white matter most c/w subacute stroke without clinical accompaniment and likely small vessel ischemia. * Placed on ASA 81mg and atorvastatin 40mg HS and to be continued at discharge * Can initiate low-dose diazepam as recommended by neuro if meclizine no longer effective. * recommend ENT referral as an outpatient for vestibular function testing (5) Elevated creatine kinase: * From laying on the floor X 24 hours- Resolved with IVF (6) Constipation: as above -- added suppository and mag citrate continue to monitor (7) Stroke: as above under fall -- no clinical accompaniment ASA and Lipitor as above and continue at discharge Will need f/u with Neurology as outpatient (8) Hiatal hernia: Placed on protonix 40mg daily and would continue at discharge (9) DVT prophylaxis: * Lovenox 40 mg SQ once daily Dispo: continued inpatient stay to work on constipation/bowel regimen CM following Accepted to [facility] -- can take tomorrow if stable/pain controlled Admission and Anticipated Discharge Date Admission Date: February 26, 2021 Subjective Patient evaluated this morning. Pain is much improved and controlled with ordered medications and we discussed utilizing longer acting opioids to help decrease frequency. She is agreeable. Spasms decreased and controlled with muscle relaxers. Her main concern today is constipation. She believes it will make her hemorrhoids worse. Currently on bedside commode. Has been passing gas. She states she had been dealing with this issue at home prior to admission as well. She states normal BM (but small, chronic) on the but only 1-2 hard juan manuel since that time and feels like it is right at her rectum. Will try suppository and if not successful 1/2 bottle magnesium citrate to help bowels. Discussed bowel regimen while on pain medication to prevent this from happening. Review of Systems Review of Systems: All systems reviewed & are unremarkable except as noted in HPI & below Physical Exam Physical Exam: GENERAL: well developed, well nourished, sitting on bedside commode attempting to have a bowel movement. HEENT: Head is atraumatic, normocephalic. MMM NECK: No JVD. CARDIAC: RRR, no r/m/g RESP: CTAB, no w/c/r ABDOMINAL EXAM: +BS throughout, non-tender, +distended EXTREMITIES: No clubbing or cyanosis. No edema. Intact radial pulses bilaterally. Calves are soft/non-tender. NEUROLOGIC EXAM: Patient is awake, alert, and oriented. Pleasant and cooperative. Answers questions appropriately. Speech is clear. Gait pattern was not assessed. MUSCULOSKELETAL EXAM: Left hip, iliac drawing frame tender to palpation. Results & Data Results & Data ([facility]) Vital Signs (Past 12 Hours) Vital Signs Temp Pulse Resp BP BP Pulse Ox 03/04/21 07:50 36.8 C 85 18 122/79 94 03/03/21 22:25 36.5 C 86 18 119/79 92 Laboratory Results 03/04/21 03/04/21 Range/Units 09:19 09:19 WBC 6.01 (4.8-10.8) K/uL RBC 4.23 (4.2-5.4) M/uL Hgb 12.7 (12.0-16.0) g/dL Hct 38.3 (37-47) % MCV 90.5 (80-100) fL MCH 30.0 (25-34) pg MCHC 33.2 (32-36) g/dL RDW Std Deviation 47.8 H (36.4-46.3) fL RDW Coeff of Johan 14.7 H (11.5-14.5) % Plt Count 267 (130-400) K/uL MPV 10.1 (7.4-10.4) fL Sodium 140 (136-145) mmol/L Potassium 3.7 (3.5-5.1) mmol/L Chloride 109 H (98-107) mmol/L Carbon Dioxide 29 (21-32) mmol/L Anion Gap 2.0 L (3-11) BUN 17 (7-18) mg/dl Creatinine 0.55 L (0.6-1.2) mg/dl Est Cr Clr Drug Dosing 83.6 ml/min Est GFR ( Amer) 103.4 ml/min Est GFR (Non-Af Amer) 89.2 ml/min BUN/Creatinine Ratio 31.6 H (10-20) Glucose 124 H (70-99) mg/dl Calcium 8.5 (8.5-10.1) mg/dl PG Care Time/CCT Total # of Minutes Spent Total Time Spent with Patient: Total time spent is greater than 50% in coordination of care (as documented) at patient's floor/unit and/or counseling patient: Coding Level of Care Code 22954 Subseq Hosp Care Lvl 2 Diagnoses Pelvic fracture S32.9XXA Encounter type: initial encounter Pelvic bone location: unspecified part of pelvis Fracture type: closed Fracture alignment: nondisplaced Vitamin D deficiency E55.9 HTN (hypertension), benign I10 Vertigo R42 Elevated creatine kinase R74.8 Constipation K59.00 Constipation type: unspecified constipation type Stroke I63.9 Hiatal hernia K44.9 DVT prophylaxis Z29.9 (1) Pelvic fracture Encounter type: initial encounter Pelvic bone location: unspecified part of pelvis Fracture type: closed Fracture alignment: nondisplaced Qualified Co de(s): S32.9XXA - Fracture of unspecified parts of lumbosacral spine and pelvis, initial encounter for closed fracture (2) Constipation Constipation type: unspecified constipation type Qualified Code(s): K59.00 - Constipation, unspecified
[2021-03-04 09:31] LABS: Hematocrit (blood only) 38.3 % (37-47); Hemoglobin 12.7 g/dL (12.0-16.0); Mean Corpuscular Hgb Conc 33.2 g/dL (32-36); Mean Corpuscular Volume 90.5 fL (80-100); Mean Platelet Volume 10.1 fL (7.4-10.4); Platelet Count 267 K/uL (130-400); RDW Coefficient of Variation 14.7 % (11.5-14.5); RDW Standard Deviation 47.8 fL (36.4-46.3); Red Blood Count 4.23 M/uL (4.2-5.4); White Blood Count 6.01 K/uL (4.8-10.8)
[2021-03-04 10:05] LABS: BUN Creatinine Ratio 31.6 (10-20); Calcium 8.5 mg/dl (8.5-10.1); Creatinine Clr Calc Pharmacy 83.6 ml/min; Est GFR (African American) 103.4 ml/min; Est GFR (Non-African American) 89.2 ml/min; Potassium 3.7 mmol/L (3.5-5.1)
[2021-03-04] MEDS ORDERED: MAGNESIUM CITRATE 296 ML/BTL PO ONE (10:30)
[2021-03-04 11:02] LABS: Thyroid Stimulating Hormone 4.94 uIu/ml (0.300-4.500)
[2021-03-04 11:17] LABS: T4 Free Thyroxine 1.12 ng/dl (0.8-1.6)
[2021-03-04] MEDS: CYCLOBENZAPRINE HCL 10 MG TAB PO PRN (12:16)
[2021-03-04] MEDS: oxyCODONE HCL 10 MG TABCR (OxyCONTIN) PO PRN (12:16)
[2021-03-04] MEDS: RESTASIS - ORDER AWAITING ACTION SCH ×2 (17:19→21:34)
[2021-03-04] MEDS: HYDROmorphone INJ 0.5 MG/0.5 ML SYR IV PRN (17:22)
[2021-03-04] MEDS: ATORVASTATIN 40 MG TAB PO SCH (20:09)
[2021-03-05] MEDS: oxyCODONE HCL 10 MG TABCR (OxyCONTIN) PO PRN (07:50)
[2021-03-05] MEDS: ENOXAPARIN INJ 40 MG/0.4 ML SYR SQ SCH (07:50)
[2021-03-05] MEDS: ASPIRIN 81 MG ECTAB PO SCH (07:50)
[2021-03-05] MEDS: DOCUSATE SODIUM 100 MG CAP PO SCH (07:51)
[2021-03-05] MEDS: lisinopril 20 MG TAB PO SCH (07:51)
[2021-03-05] MEDS: MECLIZINE HCL 25 MG TAB PO SCH (07:51)
[2021-03-05] MEDS: ACETAMINOPHEN 500 MG TAB PO SCH (07:51)
[2021-03-05] MEDS: PANTOprazole 40 MG TAB PO SCH (07:51)
[2021-03-05] MEDS: MULTIVITAMIN TAB PO SCH (07:51)
[2021-03-05] MEDS: CELECOXIB 100 MG CAP PO SCH (07:51)
[2021-03-05] MEDS: CHOLECALCIFEROL 1,000 UNITS 25 MCG TAB PO SCH (07:51)
[2021-03-05] MEDS: RESTASIS - ORDER AWAITING ACTION SCH (07:52)
--- NOTE | 2021-03-05 11:58 | Discharge Summary ---
Date of Service March 05, 2021 Admission HPI Per Admitting Provider This patient is a 81-year-old female with a history of HTN, meningioma, tremor, ankylosing spondylitis, depression, endometrial cancer, who presents to the ER after being found down on the ground for over 24 hours. She has a history of dizziness which may or may not be related to her meningioma and this caused her fall. She reports she wakes up daily with vertigo which improves with doing Karl maneuvers at home. She had come back and from going to the swimming pool this morning and was wearing her wet bathing suit when she had onset of vertigo and fell to the hard kitchen floor. She was unable to get back off the ground due to pain in her left hip until she finally was able to grab a broom stick to knock her cell phone off the countertop and call for help. She complains of pain in the left hip as well as general pain all over. She denies headache. She did have an episode of nausea with vomiting this morning while lying on the floor. She had incontinence to stool when the EMS came to pick her up. She denies chest pains or shortness of breath. She does have occasional indigestion for which she takes Tums but was unaware that she had a hiatal hernia. In the ER, she was found to have a mild leukocytosis, normal renal function, a mildly elevated CK at 622, negative troponin, normal urinalysis except 1+ ketones, negative Covid-19. On imaging, she was found to have a comminuted and slightly displaced fracture of the left iliac wing as well as fecal impaction. She was also noted to have an old L1 compression deformity. With 8 mm of retropulsion with secondary spinal canal narrowing, and multilevel spinal stenosis in the lumbar spine. Head CT showed 1.[address]. [address] angiogram of the chest was negative for PEs, but showed pleural-based opacities at right middle lobe and left lung base likely representing subpleural scarring/atelectasis versus postinflammatory change and recommended 3 to 4-month follow-up chest CT. It also showed moderate to large hiatal hernia and circumferential esophageal wall thickening possibly consistent with esophagitis. She will be admitted for pain control and possible rehab placement. Admission Exam Per Admitting Provider Constitutional: WD/WN, vitals as above Eyes: PERRL, conjunctivae normal, anicteric sclerae EOM intact bilaterally; no anisocoria and no nystagmus ENMT: external ear and nose normal, oropharynx normal Neck: trachea midline, no thyromegaly Respiratory: normal respiratory effort, lungs clear to auscultation Cardiovascular: RRR, no murmur, no edema Chest (Breasts): Chest: normal inspection of chest Gastrointestinal (Abdomen): normal bowel sounds, soft, nontender, no hepatosplenomegaly Musculoskeletal: Extremities: extremities normal to inspection; no cyanosis and no clubbing Positive TTP over left lateral hip Skin: no rashes, warm and dry Neurologic: moves all extremities and awake; no focal motor deficits Psychiatric: A+Ox3, euthymic affect Genitourinary: normal external appearance (With Son catheter draining clear yellow urine) Lymphatic: no lymphedema Principal Diagnosis Fall, Pelvic Fracture, Vertigo, CVA Discharge Exam Constitutional WD/WN, vitals as above Eyes PERRL, conjunctivae normal, anicteric sclerae EOM intact bilaterally; no anisocoria and no nystagmus ENMT external ear and nose normal, oropharynx normal Neck trachea midline, no thyromegaly Respiratory normal respiratory effort, lungs clear to auscultation Cardiovascular RRR, no murmur, no edema Chest (Breasts) Chest: normal inspection of chest Gastrointestinal (Abdomen) normal bowel sounds, soft, nontender, no hepatosplenomegaly Musculoskeletal Extremities: extremities normal to inspection; no cyanosis and no clubbing Skin no rashes, warm and dry Neurologic moves all extremities and awake; no focal motor deficits Psychiatric A+Ox3, euthymic affect Lymphatic no lymphedema Discharge Data Allergies Allergy/AdvReac Type Severity Reaction Status Date / Time Penicillins Allergy Mild HIVES Verified 02/26/21 23:41 morphine AdvReac Intermediate Nausea Verified 02/26/21 23:41 Consultations 02/26/21 15:56 ED Decision to Admit Stat 02/26/21 21:42 Consult Orthopedic Surgery Routine 02/27/21 18:45 Consult Neurology Routine Ordered Studies Cervical Spine CT 02/26/21 12:45 CT SCAN OF THE CERVICAL SPINE CLINICAL HISTORY: Trauma. Fall. COMPARISON STUDY: No priors. TECHNIQUE: CT scan of the cervical spine is performed from the skull base to the upper thoracic spine. Images are reviewed in the axial, sagittal, and coronal planes. IV contrast was not administered for this examination. A dose lowering technique was utilized adhering to the principles of ALARA. The examination is degraded by streak artifact from the patient's shoulders. FINDINGS: Skeletal structures: The skeletal structures are osteopenic. There is no evidence of fracture or subluxation involving the cervical spine. Vertebral body height is maintained. There is minimal anterolisthesis at C3-C4 and C4-C5. Alignment is otherwise preserved. There is straightening of cervical lordosis. Anterior osteophytes are seen throughout. The odontoid process and lateral masses are intact. The atlantoaxial articulation is preserved noting abdomen and productive degenerative change. The spinous processes appear intact. There is moderate multilevel cervical spondylosis. Uncovertebral and facet arthropathy contribute to neural foraminal stenosis at several levels. Intervertebral discs: There is moderate to advanced disc space narrowing at C5- C6 and C6-C7. Central canal: Posterior disc osteophyte complexes at C5-C6 and C6-C7 likely contribute to acquired compromise of the central canal. Soft tissues: The prevertebral and paraspinous soft tissues are within normal limits. There is atherosclerotic calcification of the carotid bulbs. Calvarium: The visualized calvarium at the skull base appears intact. Brain parenchyma: Partially visualized brain parenchyma at the skull base is within normal limits. Sinuses and mastoids: The visualized paranasal sinuses are clear. The mastoid air cells are well pneumatized. Lung apices: Clear as visualized. IMPRESSION: 1. There is no evidence of fracture or subluxation involving the cervical spine. 2. Osteopenia and spondylotic change as above. ACT 112: Negative or not required by law. Electronically signed by: Joss Canchola M.D. 02/26/2021 1:[address] 02/26/21 12:45 CT head/brain wo con CLINICAL HISTORY: 81 years-old Female with Pt c/o fall, dizziness. Acute head injury status post fall TECHNIQUE: Multiple axial CT images of the head were obtained without contrast. A dose lowering technique was utilized adhering to the principles of ALARA. COMPARISON: Brain MRI 07/11/2019 FINDINGS: No acute intracranial hemorrhage, midline shift, intra-axial mass, hydrocephalus, territorial ischemia or abnormal extra-axial collection. Age- related involutional changes. White matter hypodensities suggestive of chronic microvascular ischemic disease. 1.6 cm calcified meningioma adjacent to the left cerebral convexity redemonstrated. Cerebral vascular calcifications. Chronic subcentimeter lacunar infarct of the left thalamus. The calvarium is intact. Mastoid air cells are clear. Mild polypoid mucosal thickening of the left maxillary sinus. Unremarkable soft tissues and orbits. IMPRESSION: 1. No acute intracranial abnormality or calvarial fracture. 2. Chronic findings as above. ACT 112: Negative or not required by law. The above report was generated using voice recognition software. It may contain grammatical, syntax or spelling errors. Electronically signed by: Charles Baron M.D. 02/26/2021 1:[address] 02/26/21 12:45 CT lumbar spine wo con CT DOSE: CLINICAL HISTORY: Back pain status post trauma TECHNIQUE: Helical images were acquired in transverse plane. Reformatted sagittal and coronal images were reviewed. A dose lowering technique was utilized adhering to the principles of ALARA. CONTRAST: No contrast was administered COMPARISON STUDY: X-ray of the lumbar spine dated 06/20/2019 FINDINGS: L1-2 level: There is no evidence of significant disc bulge or focal herniation. There is no evidence of spinal or foraminal stenosis. L2-3 level: There is a circumferential disc bulge with mild spinal stenosis. There is no significant foraminal narrowing L3-4 level: There is a circumferential disc bulge with moderate spinal stenosis. There is mild bilateral foraminal narrowing. L4-5 level: There is a circumferential disc bulge with moderate to severe spinal stenosis. There is mild bilateral foraminal narrowing L5-S1 level: There is no evidence of significant disc bulge or focal herniation. There is no evidence of spinal or foraminal stenosis. There is multilevel facet joint arthropathy. There is an old severe L1 compression fracture with 8 mm of retropulsion with secondary spinal canal narrowing IMPRESSION: 1. No acute fractures or traumatic subluxations 2. Old severe L1 compression fracture with 8 mm of retropulsion with secondary spinal canal narrowing 3. Multilevel spondylytic changes with multilevel spinal stenosis ACT 112: Negative or not required by law. Electronically signed by: Alex Martínez M.D. 02/26/2021 1:[address] 02/26/21 12:45 CT thoracic spine wo con HISTORY: 81 years-old Female Pt c/o fall, back pain mid and low back pain status post fall COMPARISON: CT chest and lumbar spine studies of same day, lumbar spine radiographs 06/20/2019. TECHNIQUE: Multiple axial CT images of the thoracic spine were obtained without the use of IV contrast. A dose lowering technique was used consistent with the principals of ALARA. FINDINGS: Chronic L1 compression deformity with retropulsion is partially imaged. Demineralized appearance of the bones. Mild multilevel intervertebral disc space narrowing with anterior plate bridging osteophytosis. Chronic appearing fracture is noted through the bridging anterior osteophyte at T7-T8. Mild to moderate multilevel facet arthrosis. No acute fracture or subluxation identified. No paravertebral edema. Trace left pleural effusion. Large hiatal hernia. Cardiomegaly. No pneumothorax identified. IMPRESSION: 1. No acute fracture or subluxation identified. 2. Partially imaged chronic L1 compression deformity. ACT 112: Negative or not required by law. The above report was generated using voice recognition software. It may contain grammatical, syntax or spelling errors. Electronically signed by: Charles Baron M.D. 02/26/2021 1:47 PM Femur X-Ray 02/26/21 12:49 XR femur LT 2V routine CLINICAL HISTORY: Left femur and hip pain COMPARISON: None. DISCUSSION: No acute femoral fractures are visualized. There is a partially visualized left iliac wing fracture. There are moderately advanced osteoar thritic changes present within the left hip . Note is made of vascular calcifications. There is a Son catheter in place. IMPRESSION: 1. No acute femoral fractures 2. 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 Left iliac wing fracture ACT 112: Negative or not required by law. Electronically signed by: Alex Martínez M.D. 02/26/2021 4:[address] 02/26/21 12:49 CT pelvis wo con CT DOSE: CLINICAL HISTORY: Pt c/o left sided hip pain TECHNIQUE: A dose lowering technique was utilized adhering to the principles of ALARA. COMPARISON STUDY: None. FINDINGS: Comminuted and slightly displaced fracture at the long peripheral portion of the left iliac wing. No other fractures are seen. Evaluation is limited due to diffuse osteopenia. Severe degenerative changes of the lower lumbar spine are seen. Limited evaluation of pelvic viscera shows fat-containing hernia within the anterior abdominal wall, severe diverticulosis of sigmoid colon without evidence of diverticulitis and fecal impaction. IMPRESSION: 1. Comminuted and slightly displaced rib fracture of the long peripheral portion of the left iliac wing. 2. Diverticulosis of sigmoid colon without evidence of diverticulitis. 3. Fecal impaction. 4. Osteopenia. ACT 112: Negative or not required by law. The above report was generated using voice recognition software. It may contain grammatical, syntax or spelling errors. Electronically signed by: Melissa Yarbrough DO 02/26/2021 1:[address] 02/26/21 12:56 CT chest diagnostic wo con CLINICAL HISTORY: Pt c/o left sided rib pain COMPARISON STUDY: No previous studies for comparison. CT DOSE: 3768.54 mGy.cm TECHNIQUE: CT of the thorax was performed from the thoracic inlet to the lung bases. Images are reviewed in the axial, sagittal, and coronal planes. IV contrast was not administered for this examination. A dose lowering technique was utilized adhering to the principles of ALARA. FINDINGS: There is no axillary or internal mammary lymphadenopathy seen. Evaluation of the thoracic inlet is limited due to beam hardening artifact from bilateral metallic prosthetic shoulder joints. Few small mediastinal lymph nodes are seen, measuring less than 1 cm in short axis and nonpathological by CT size criteria. Thyroid: No definite abnormalities are seen within thyroid gland this limited exam. Large hiatal hernia is seen. Thoracic aorta: Is normal in caliber with scattered calcifications of its wall. Main pulmonary artery is normal in caliber. Azygos vein is prominent. Heart: The heart is normal in size and configuration, without pericardial effusion. Coronary calcifications are seen. Lungs and pleural spaces: Tracheobronchial tree is patent. No large infiltrates are seen. No pleural effusion. Mild atelectasis at dependent portions of bilateral lower lobes are seen. -Focal subpleural consolidative lesion is seen within right middle lobe measuring approximately 3.7 x 1.5 cm in size (8/154) -3.2 x 1.8 subcentimeter focal consolidative lesion is seen within lingula (8/125. -12 x 6 mm spiculated nodule is seen within left base (8/189). -Irregular approximately 8 mm nodule is seen within right upper lobe adjacent to the right minor fissure (8/132) Upper abdomen: Partially visualized upper abdominal viscera is within normal limits. Skeletal structures: Multilevel degenerative changes of the spine. Osteopenia. Bilateral shoulder prosthetic joints. No evidence of rib fracture or thoracic wall abnormalities. IMPRESSION: 1. No evidence of acute fracture or thoracic wall abnormalities are seen 2. Multifocal irregular pulmonary nodules concerning for malignant process. T riangular subpleural nodule within the right middle lobe morphology sometimes could be seen in pulmonary infarct. Evaluation is limited on this nonenhanced exam. If there is clinical suspicion for pulmonary embolus, further evaluation with CT angiography of the chest might be considered. ACT 112: Positive. There are findings on this exam that require communication between the performing entity and the patient following Patient Test Result Information Act ([place] Act 112) guidelines. The above report was generated using voice recognition software. It may contain grammatical, syntax or spelling errors. Electronically signed by: Melissa Yarbrough DO 02/26/2021 1:45 PM Chest CTA 02/26/21 14:48 CT ANGIOGRAM OF THE CHEST CLINICAL HISTORY: Atypical chest pain. COMPARISON STUDY: Unenhanced chest CT performed the same day 02/26/2021. TECHNIQUE: Following the IV administration of 119 cc of Optiray 320, CT angiogram of the chest was performed from the upper abdomen to the thoracic inlet utilizing the pulmonary embolus protocol. Images are reviewed in the axial, sagittal, and coronal planes. 3-D MIPS images are created and assessed. IV contrast was administered without complication. A dose lowering technique was utilized adhering to the principles of ALARA. There is streak artifact from bilateral shoulder arthroplasties. CT DOSE: 693.21 mGy.cm FINDINGS: Thyroid: Imaged portions of the thyroid gland are normal in size and attenuation. An 8 mm low-attenuation nodule is noted in the right lobe. Thoracic aorta: There is atherosclerotic calcification of the thoracic aorta, which is normal in caliber and demonstrates standard 3-vessel arch anatomy. No dissection is seen. Pulmonary vasculature: The pulmonary trunk is normal in caliber. There are no filling defects identified in main, lobar, or segmental pulmonary branches to suggest pulmonary embolus. Heart: The heart is mildly enlarged and without pericardial effusion. The coronary arteries are densely calcified. Lungs and pleural spaces: There is bibasilar scarring/atelectasis. Segmental atelectasis is suggested in the lingula. Pleural-based opacities are again seen in the lateral right middle lobe, as well as along the minor fissure. Similar opacities are seen at the medial left lung base on image #64. There is no airspace consolidation typical for pneumonia or pleural effusion. Scattered calcified granulomas are observed. Mediastinum: There is diffuse esophageal wall thickening. No mediastinal adenopathy is identified. Aubrie: Clear. Axillae: There is no axillary lymphadenopathy. Upper abdomen: There is a moderate to large hiatal hernia. Partially visualized upper abdominal viscera is within normal limits. Skeletal structures: The skeletal structures are osteopenic. Degenerative change and mild hyperkyphosis are noted in the thoracic spine. No lytic or blastic bony lesions are seen. Bilateral shoulder arthroplasties are in place. IMPRESSION: 1. There is no evidence of pulmonary embolus in the main, lobar, or segmental pulmonary arteries. 2. Pleural-based opacities are again seen in the right middle lobe and at the left lung base, likely representing subpleural scarring/atelectasis versus postinflammatory change. A 3-4 month follow-up chest CT is recommended for reassessment. 3. There is no airspace consolidation typical for pneumonia or pleural effusion. 4. Mild cardiomegaly. 5. Moderate to large hiatal hernia. 6. There is circumferential esophageal wall thickening. Correlate clinically for evidence of esophagitis. This could be further assessed with endoscopy if clinically warranted. 7. Additional findings as above. ACT 112: Negative or not required by law. Electronically signed by: Joss Canchola M.D. 02/26/2021 3:48 PM Brain MRI 02/27/21 11:57 MRI OF THE BRAIN WITHOUT AND WITH IV CONTRAST CLINICAL HISTORY: Possible posterior fossa stroke. Dizziness. Patient found on the ground. History of meningioma. History of endometrial carcinoma. COMPARISON STUDY: 07/11/2019 TECHNIQUE: MRI of the brain was performed from the vertex to the skull base utilizing various T1 and T2 weighted sequences. Following the IV administration of 9 mL of Gadavist contrast, additional enhanced images were obtained. FINDINGS: Sagittal T1, axial diffusion, proton density and T2 weighted axial, coronal FLAIR, and pre and post axial T1-weighted images were acquired. These were supplemented with post gadolinium coronal T1 weighted images. There is an enhancing 14 mm extra-axial dural based left frontoparietal mass, similar to the prior study and consistent with a meningioma. There is an 8 mm focus of increased signal on axial diffusion-weighted images within the left parietal white matter. There is no corresponding focus of decreased signal on the ADC map. There is a focus of increased T2 signal in this area, and therefore the differential diagnosis is between subacute infarct and T2 shine through. There is no evidence of ventricular dilatation. Proton density T2-weighted and FLAIR images reveal extensive foci of increased T2 signal within the white matter, thalami, and [place], likely on a small vessel basis. There are no abnormal flow voids. IMPRESSION: 1. Redemonstration of a 16mm dural based left frontal parietal extra-axial mass, consistent with a meningioma 2. Extensive foci of increased T2 and FLAIR signal within the white matter, likely on a small vessel basis 3. 8 mm focus increased signal on axial diffusion-weighted images, subacute in farct versus T2 shine through ACT 112: Negative or not required by law. Electronically signed by: Alex Martínez M.D. 02/27/2021 4:28 PM Head MRA 02/27/21 11:57 MR ANGIOGRAPHY OF THE [place] NO CONTRAST CLINICAL HISTORY: Possible vertebral basilar stroke. COMPARISON STUDY: None. A 3-D [id number] MR angiographic sequence of the [place] was performed. Both the source and projection images were reviewed. The examination is motion compromised. Left vertebral artery appears hypoplastic. There is a left posterior cerebral artery stenosis. There is attenuation of the left middle cerebral artery branches. There are no lesion suspicious for aneurysm. IMPRESSION: 1. Motion compromised study 2. No evidence of aneurysm 3. Left posterior cerebral artery stenosis. Attenuation of the left middle cerebral artery branches at the level of the sylvian fissure 4. The distal left vertebral artery appears small. 5. CT angiography might be more accurate as this required less patient cooperation. ACT 112: Negative or not required by law. Electronically signed by: Alex Martínez M.D. 02/27/2021 4:19 PM Neck MRA 02/27/21 11:57 NECK MRA HISTORY: History of meningioma endometrial carcinoma. Dizziness. Patient found on the floor. assess brainstem, carotid flow TECHNIQUE: [id number] and gadolinium-enhanced MRA of the neck was performed both before and after the intravenous administration of contrast. All measurements were calculated based on NASCET criteria. COMPARISON STUDY: None. FINDINGS: The study is motion compromised. There is no evidence of hemodynamic significant right internal carotid artery stenosis. There is equivocal left carotid bulb stenosis. There is an equivocal mild stenosis of the left vertebral origin. The distal left vertebral artery appears small. IMPRESSION: 1. Motion compromised study 2. No evidence of right internal carotid artery stenosis 3. Equivocal left carotid bulb stenosis 4. Equivocal mild stenosis of the left vertebral origin 4. Small distal left vertebral artery. 6. CT angiography might be more accurate as this study requires less patient cooperation. ACT 112: Negative or not required by law. Electronically signed by: Alex Martínez M.D. 02/27/2021 4:19 PM Knee X-Ray 02/28/21 14:07 LEFT KNEE 3 VIEWS CLINICAL HISTORY: Fall. Left knee pain. FINDINGS: AP, crosstable lateral, and sunrise views of the left knee are obtained. No prior studies are available for comparison at the time of dictation. The skeletal structures are osteopenic. No fracture is seen. There is moderate to advanced tricompartmental degenerative joint space narrowing, greatest in the medial and patellofemoral compartments. There are large marginal osteophytes, patellar enthesophytes, and degenerative beaking of the tibial spine. A calcified fabella is incidentally noted. There is no significant joint effusion. Soft tissue edema is noted in the popliteal fossa. IMPRESSION: 1. No acute bony abnormality is identified. 2. Osteopenia and degenerative change as above. Electronically signed by: Joss Canchola M.D. 02/28/2021 4:13 PM Hospital Course (1) Fall: admitted with fall 2nd to chronic vertigo that resulted in LEFT iliac wing fracture and pain and was down on ground for >24hours and unable to get up due to pain. Fortunately, she has no other significant injuries, no skin wounds or pressure sores. Only very mild elevation in creatine kinase to 600s which resolved with IVF No renal failure or dehydration. CT of the head, cervical spine, thoracic spine, lumbar spine, pelvis, and chest all completed. Otherwise with degenerative changes but no other acute findings outside of abn chest CT as noted below: Pleural-based opacities are again seen in the right middle lobe and at the left lung base, likely representing subpleural scarring/atelectasis versus postinflammatory change. A 3-4 month follow-up chest CT is recommended for reassessment but suspect just all atelectasis from being down for so long but regardless will need repeat as rec'd. Vit D level was checked and low at 23.8 and her usual cholecalciferol was increased to 50mcg daily and continued at discharge. Rec'd follow up with PCP about bisphosphonate therapy as outpatient Consulted orthopedics and determined to be non-operative and to be WBAT LLE and to utilize ice and medications for pain. --> Pain control great during hospitalization for previous 2 days prior to d/c with long acting pain medication oxycodone HCl 10mg Q12 along with Flexeril as needed for muscle spasms and scheduled tylenol for baseline control. Bowel regimen (large BM prior to d/c) continued at discharge to prevent constipation She will need follow up with orthopedics outpatient for repeat imaging and utilized Lovenox SQ for DVT prophylaxis for 2 weeks until seen in follow up PT/OT with recs for rehab as she lives alone and was arranged for rehab at [facility] She does have a history of meningioma and follows with Dr. Siu for yearly scanned. Imaging was done which showed an 8mm focus of increased signal on axial diffusion-weighted imaging is related to T2 shine through rather than a subacute infarct per Dr. Veliz interpretation however Dr Bianchi's notes indicate MRI most c/w small subacute stroke without clinical accompaniment, likely small vessel ischemia --> She was started on ASA 81mg and lipitor 40mg daily and continued at discharge and will need follow up with Neurology in 3-4 weeks She also had symptoms of reflux and was placed on protonix 40mg daily and continued at discharge (2) Pelvic fracture: nonsurgical fracture. Consulted orthopedics as above --> Transitioned to oxycontin 10mg for long acting relief Q12 hr as needed for long acting pain control --> Continued constipation with pain medications and was resolved with suppository To continued miralax, senna and suppository prn at d/c Rehab at d/c as above (3) Vitamin D deficiency: Vit D low 23.8 --> increased cholecalciferol to 50mcg daily (2,000IU) and consider bisphosphonate outpatient if patient tolerates (4) HTN (hypertension), benign: Stable and continued home lisinopril 20mg daily (5) Vertigo: Continue meclizine -> scheduled while inpatient and as needed at discharge Symptoms currently controlled. Patient also had 8mm focus of increased signal in L parietal white matter most c/w subacute stroke without clinical accompaniment and likely small vessel ischemia. Placed on ASA 81mg and atorvastatin 40mg HS and to be continued at discharge Can initiate low-dose diazepam as recommended by neuro if meclizine no longer effective. recommend ENT referral as an outpatient for vestibular function testing (6) Elevated creatine kinase: From laying on the floor X 24 hours- Resolved with IVF (7) Constipation: as above -- added suppository with success and continue prn at d/c (8) Stroke: as above -- no clinical accompaniment ASA and Lipitor as above and continued at discharge f/u with Neurology as outpatient (9) Hiatal hernia: Symptoms of reflux without known hx hiatal hernia and esophagitis on CT on admission --> placed on Protonix 40mg daily continued at discharge and symptoms stable (10) Abnormal brain MRI: See above (11) Meningioma: Follows yearly with Dr Siu -- will forward d/c summary to him per patient request (12) DVT prophylaxis: Lovenox 40 mg SQ once daily Discharged to [facility] for rehab Total Time Total Time Spent Total Time Spent (In Minutes): 70 Discharge Plan Discharge Items Patient Disposition: Transfer Inpatient Rehab Fac Reason For Visit: FALL, PELVIC FRACTURE Discharge Diagnosis: Pelvic Fracture, Vertigo, CVA Goals: You have been hospitalized for an acute medical problem. During your stay at [facility], we have made an effort to correct the problem that brought you to the hospital while keeping you as comfortable as possible. Medications were used to bring your condition under control and your discharge instructions will include directions for any medications you should take after leaving the hospital. Please make sure you see your Primary Care Provider as part of your follow up plan. Activity: As commented below Activity Comment: advance activity as tolerated with therapy Non-emergency contact: Primary Care Provider, Surgeon and Neurologist Call non-emergency contact if: you have any medication questions, your symptoms worsen and your pain is worsening Follow-up/Referrals: Coleman Veliz MD [Physician] - 03/25/21 10:30 am ([facility]) Katy Perez DO [Primary Care Provider] - (Please follow up with your PCP following your rehab stay.) Verito Moreno PA-C [Physician Machine Folder] - 03/15/21 8:30 am Addtl Attending Provider Instructions: Fall/Pelvic Fracture You have been hospitalized for a fall. You were found to have a iliac wing (pelvic) fracture. You were evaluated by orthopedics and it was determined this should be managed non-operatively and will need follow up with Dr. Choudhury in 2-3 weeks to monitor your progress. To prevent blood clots, you are being continued on Lovenox for the next 2 weeks in combination with your aspirin and can be continued up to 4 weeks depending on your ambulatory status and mobility and progress at follow up appointment. You will be continued on pain medication and muscle relaxers as follows: * Tylenol 1000mg THREE TIMES daily for baseline control * Celebrex 200mg daily * Cyclobenzaprine 10mg up to three times daily -- this is a muscle relaxer and can help with spasm pain * Oxycodone HCl 10mg up to TWICE daily as needed for PAIN -- this is a LONGER ACTING pain medication than the short acting oxycodone and this should help to provide longer lasting relief You will be continued on a bowel regimen to prevent constipation while on pain medications as follows: * Docusate 100mg TWICE DAILY * Miralax 1 packet daily * Fleet Enema or Dulcolax enema can be administered if you have been without bowel movement in 1-2 days to help prevent constipation. Vertigo Neurology was consulted and imaging of your brain was obtained which did show stable meningioma (and you should follow up with Dr Siu as previously scheduled) as well as a small area of subacute stroke. Thankfully the area and size of this did not cause any residual symptoms but you have been started on and will continue aspirin 81mg daily as well as lipitor 40mg You will need to have follow up in 3-4 weeks with the Neurology clinic to monitor your progress. You may want to continue Karl maneuvers and see specialist in therapy to help with this as well. You have been scheduled meclizine while in the hospital and can take this as needed at discharge for symptoms. Vit D Deficiency -- Due to fracture, Vitamin D level was checked and still found to be low. Your supplementation was increased and you have been continued on this increased dose at discharge. You have been evaluated by therapy and recommended for rehab at discharge to [facility]. Please follow up with PCP and orthopedics as well as Neurology. Please return to the emergency department with any fever, chills, chest pain, shortness of breath, bleeding, or any slurred speech/symptoms of stroke or for any other symptoms that are concerning for you. Addtl Heel Blacker Provider Instructions: Conservative treatment for left iliac wing fracture Use walker to assist with ambulation Weight bear as tolerated left leg Allowed for full range of motion left hip, knee and lower leg as tolerated Strengthening left leg as tolerated advance activities as tolerated Ice to left hip as needed Continue ASA and Lovenox for DVT prophylaxis at discharge for 2-4 weeks. Follow up with Dr. Choudhury in 2-3 weeks as scheduled Call [phone] with any questions or concerns. Pending Studies at Discharge: No Stand-Alone Forms: [employer] App, Smoking Cessation Skilled Items Patient informed of condition?: Yes DNR: Yes Discharge Level of Care: Acute rehab Communicable Disease: No Discharge Prognosis: Stable Lines: None Urinary Catheter: No Medications and DC Order Prescriptions: New cyclobenzaprine 10 mg Tablet 10 mg PO TID PRN (Reason: muscle spasm) Qty: 10 RF: 0 atorvastatin 40 mg Tablet 40 mg PO HS Qty: 30 RF: 0 aspirin 81 mg Tablet,Delayed Release (Dr/Ec) 81 mg PO QAM 30 Days Qty: 30 RF: 0 acetaminophen 500 mg Tablet 1,000 mg PO TID 14 Days Qty: 84 RF: 0 celecoxib [Celebrex] 100 mg Capsule 100 mg PO DAILY Qty: 30 RF: 0 enoxaparin 40 mg/0.4 mL Syringe 40 mg subcut Q24H 14 Days Qty: 5.6 RF: 0 oxycodone [OxyContin] 10 mg Tablet,Oral Only,Ext.Rel.12 Hr 10 mg PO Q12H PRN (Reason: pain) Qty: 7 RF: 0 polyethylene glycol 3350 [Miralax] 17 gram Powder In Packet 17 g PO DAILY Qty: 30 RF: 0 pantoprazole 40 mg Tablet,Delayed Release (Dr/Ec) 40 mg PO QAM Qty: 30 RF: 0 Enema Disposable 19-7 gram/118 mL Enema 132 ml IN Q1H PRN (Reason: constipation) Qty: 118 RF: 0 docusate sodium 100 mg Capsule 100 mg PO BID Qty: 30 RF: 0 cholecalciferol (vitamin D3) 25 mcg (1,000 unit) Capsule 2,000 unit PO QAM Qty: 30 RF: 0 Continued glucosamine-chondroitin [Osteo Bi-Flex] 250-200 mg Tablet 1 tab PO QAM Qty: 0 RF: 0 lisinopril 20 mg tablet 20 mg PO QAM RF: 0 Restasis MultiDose 0.05 % drops 1 drops OP Q12H RF: 0 meclizine 25 mg tablet 25 mg PO TID PRN (Reason: Dizziness) RF: 0 multivitamin [Multiple Vitamins] Tablet 1 tab PO QAM RF: 0 acyclovir 5 % ointment 1 appln TOP 6XD RF: 0 Discontinued cholecalciferol (vitamin D3) 25 mcg (1,000 unit) capsule 1,000 units PO QAM RF: 0 Discharge Orders: Discharge Order (Routine); Ordered 03/05/21 Ordered By: Faviola Oneill/Other Patient Handouts: Treating Constipation, Eating a High-Fiber Diet, Anatomy of the Inner Ear, Dizziness Vertigo and Balance ..., How the Colon Works, Exercises to Prevent Falls Admission Data Admit Date/Time: 02/26/21 20:18 Attending Provider: Yobany Haley Admit Provider: Nina Beasley Primary Care Provider: Katy Perez Other Providers: Nina Beasley ; Coleman New ; Coleman Veliz ; [facility] ; [facility] Other Interventions: Discharge Summary Assessment (RN) Last Done: 03/05/21 12:44 Coding Level of Care Code D/C Day Management >30 mins Diagnoses Fall W19.XXXA Encounter type: initial encounter Pelvic fracture S32.9XXA Encounter type: initial encounter Fracture alignment: nondisplaced Fracture type: closed Pelvic bone location: unspecified part of pelvis Vitamin D deficiency E55.9 HTN (hypertension), benign I10 Vertigo R42 Elevated creatine kinase R74.8 Constipation K59.00 Constipation type: unspecified constipation type Stroke I63.9 Hiatal hernia K44.9 Abnormal brain MRI R90.89 Meningioma D32.9 DVT prophylaxis Z29.9
[2021-03-05] MEDS: CYCLOBENZAPRINE HCL 10 MG TAB PO PRN (12:43)
== END 2021-03-05 15:26 | DRG 542 ==
LOC: ED 11:07 → SUATTDRO 20:18 → 3N 20:18